=== PATIENT | male | born 1955 | race Two or more races ===

== ENCOUNTER → 2024-03-31 | Outpatient (CLI) | payer MEDICARE, SELFPAY ==
--- NOTE | 2024-03-31 11:27 | XR_ITS ---
Examination: PA lateral chest 2 views TECHNIQUE: Upright PA lateral chest 2 views Exam date and time: March 31, 1999 2534 hours Comparison June 27, 2022 INDICATIONS: Diagnosis chronic heart failure, systolic heart failure with shortness of breath this week FINDINGS: Mild prominence left ventricle Mild vascular congestion. No angel pulmonary edema Transvenous dual-chamber bipolar cardiac lead satisfactory position IMPRESSION: Mild prominence left ventricle No pneumonia or pulmonary edema
== END | disposition home or self-care (01) ==
PROVIDERS: PCP Family Medicine; Referring Provider Registered Nurse; Visit Provider Registered Nurse
DX: I51.7 Cardiomegaly (principal)
CPT/HCPCS: 71046

== ENCOUNTER → 2024-04-30 | Outpatient (CLI) | payer MEDICARE, SELFPAY ==
[2024-04-30 15:59] LABS: Amphetamine/Methamp Scrn,U Negative (Negative); Barbiturate Screen,Urine Negative (Negative); Benzodiazepines Screen,Urine Negative (Negative); Benzoylecgonine Screen, Ur Negative (Negative); Fentanyl Screen,Urine Negative (Negative); Opiate Screen,Urine Negative (Negative); THC Screen,Urine Negative (Negative)
== END | disposition home or self-care (01) ==
LOC: SLDO 14:16
PROVIDERS: PCP Registered Nurse; Referring Provider Registered Nurse; Visit Provider Registered Nurse
DX: L97.923 Non-pressure chronic ulcer of unspecified part of left lower leg with necrosis of muscle (principal); Z79.891 Long term (current) use of opiate analgesic
CPT/HCPCS: 80307

== ENCOUNTER 2024-06-06 19:43 | Inpatient (IN) | payer MEDICARE, SELFPAY ==
[2024-06-06] VITALS (8 sets, daily range): BP systolic 120–144; BP diastolic 59–83; PULSE 60–78; RESP 22–32; TEMP 39.4–41.1; O2SAT 95–99; BMI 33.4
--- NOTE | 2024-06-06 20:07 | XR_ITS ---
Examination: CT brain head without contrast. 2-D sagittal coronal reconstructions Date and time of exam:June 06, 20242014 hrs. , Consider Indications: Onset altered mental status today CTDI: vol (mGy):54.3 DLP: (mGycm):1103 Technique: Multiple CT axial sections of the brain have been obtained, 5 mm slice thickness. Contrast has not been administered. 2-D sagittal, coronal reconstructions have been obtained Low dose protocols were performed. One or more of the following dose reduction techniques were used; automated exposure control, adjustment of the mA and/or KV according to patient size, use of iterative reconstruction technique. Findings: No significant ventricular enlargement. Small bilateral basal ganglia infarcts Intra-axial or extra-axial hemorrhage density is not seen. No mass effect or midline shift Basal cisterns are not remarkable. Fourth ventricle is midline. Cranial vault intact. Impression: Negative for acute hemorrhage, mass effect or midline shift Clinical correlation advised and follow-up accordingly
--- NOTE | 2024-06-06 20:07 | XR_ITS ---
Examination: AP chest single view Technique one AP portable upright chest single view Exam date and time: June 06, 2024 1931 hrs. Comparison March 31, 2024 Indications: Sepsis today Findings: Mild heart failure Mild enlargement cardiac contour Prominent vascular congestion with mild perihilar edema Cardiac leads satisfactory position No lobar pneumonia Impression: Mild heart failure No lobar pneumonia
[2024-06-06 20:31] LABS: Lactate (Lactic Acid) 3.3 mMol/L (0.4-2.0)
[2024-06-06 20:33] LABS: Basophils # (Auto) 0.1 Thou/mm3 (0.0-0.2); Basophils % (Auto) 0 % (0-2.5); Eosinophils % (Auto) 0 % (0-10); Hematocrit 44.2 % (41.0-53.0); Hemoglobin 14.8 g/dL (13.5-16.0); Immature Granulocytes % (Auto) 1 % (0-0); Immature Granulocytes Auto 0.12 Thou/mm3 (0.00-0.00); Lymphocytes # (Auto) 0.8 Thou/mm3 (1.0-4.8); Lymphocytes % (Auto) 4 % (10-50); Mean Corpuscular HGB Conc 33.5 g/dl (31.0-37.0); Mean Corpuscular Hemoglobin 29.5 pg (25.0-35.0); Mean Corpuscular Volume 88 fL (80-100); Monocytes # (Auto) 1.5 Thou/mm3 (0.0-0.8); Monocytes % (Auto) 7 % (0-12); Neutrophils # (Auto) 17.6 Thou/mm3 (1.8-7.7); Neutrophils % (Auto) 88 % (37-80); Nucleated Red Blood Cell % 0 /100 WBC (0); Platelet Count 158 Thou/mm3 (140-440); RDW Standard Deviation 43.6 fL (35.1-43.9); Red Blood Count 5.02 Miln/mm3 (4.50-5.90)
[2024-06-06] MEDS: ACETAMINOPHEN SUPP 650 MG SUPP PR ×2 (20:41→22:40)
[2024-06-06 20:48] LABS: INR 1.2 (0.9-1.3); Partial Thromboplastin Time 28.1 Seconds (22.0-36.0); Prothrombin Time 13.1 Seconds (9.0-12.2)
[2024-06-06] MEDS: SODIUM CHLORIDE 0.9% 1000 ML 1,000 ML 999 ML IV ×3 (20:50→23:16)
[2024-06-06 21:03] LABS: Alanine Aminotransferase 14 U/L (10-49); Albumin, Serum 3.8 gm/dL (3.4-4.8); Albumin/Globulin Ratio 1.2 (1.2-2.2); Alkaline Phosphatase 97 U/L (46-116); Anion Gap 11 (7-16); Aspartate Amino Transferase 26 U/L (0-34); BUN/Creatinine Ratio 12 Ratio (12-20); Bilirubin,Total 0.8 mg/dL (0.3-1.2); Blood Urea Nitrogen 21 mg/dL (9-23); Calcium 9.6 mg/dL (8.3-10.6); Calcium (Corrected) 9.8 mg/dL (8.5-10.1); Carbon Dioxide 21.5 mMol/L (20.0-31.0); Chloride 105 mMol/L (98-107); Creatinine (Component) 1.7 mg/dL (0.6-1.3); Estimated Creatinine Clearance 45.6 mL/min (>60); Globulin 3.3 gm/dL (2.3-3.5); Glucose 111 mg/dL (74-106); Osmolality,Calculated 277 (275-295); Potassium 4.7 mMol/L (3.4-5.1); Procalcitonin 0.88 ng/ml (0.0-0.49); Sodium 137 mMol/L (136-145); Total Protein 7.1 gm/dL (5.7-8.2); eGFR 43 See Note
[2024-06-06 21:13] LABS: Collection Type, Urine Voided; Squamous Epithelial Cell,Urine 0 /hpf (0-5)
--- NOTE | 2024-06-06 21:17 | EDNOTE_ITS ---
ED SOB =RME/HPI General Chief Complaint: Shortness of Breath/Dyspnea Stated Complaint: SHORTNESS OF BREATH Time Seen by Provider: 06/06/24 19:55 Arrival date/time: 06/06/24 19:43 This is a 69-year-old male that comes in with complaints of fever shortness of breath for the past 3 days. Per patient's son patient has had flulike symptoms for the past 3 days and today was feeling weak and had 1 fall at home. Per son patient did not fall and hit head per son, One of the times patient fell on buttocks. Patient currently being treated for chronic ulcers to lower extremities. hx of valvular disease, pacemaker placement (replaced in 2018), HTN, HFpEF s/p AICD, and CVA. Related Data Home Medications ?Medication ?Instructions ?Recorded ?Confirmed nitroglycerin 0.4 mg sublingual 0.4 mg SL PRN PRN CHES T TIGHTNESS 12/20/16 06/07/24 tablet (Nitrostat) #0 tabs amlodipine 5 mg tablet 5 mg PO QDAY 06/04/22 aspirin 81 mg chewable tablet 81 mg PO QDAY 06/04/22 0 06/07/24 escitalopram oxalate 20 mg tablet 20 mg PO QDAY 06/07/24 tamsulosin 0.4 mg capsule (Flomax) 0.4 mg PO QDAY 05/2206/07/24 spironolactone 25 mg tablet 25 mg PO BID 07/03/2305/22 hydrocodone 10 mg-acetaminophen 1 tab PO BID PRN pain 06/07/24 06/07/24 325 mg tablet Previous Rx's ?Medication ?Instructions ?Recorded doxycycline monohydrate 100 mg 100 mg PO BID 10 days # 20 caps 06/11/24 capsule metoprolol succinate 50 mg 50 mg PO QDAY 1 month #30 t abs 06/11/24 tablet,extended release 24 hr Allergies Allergy/AdvReac Type Severity Reaction Status Date / Time latex Allergy Rash Verified 11/04/23 21:49 Review of Systems Review of Systems Systems Reviewed: All systems reviewed, normal except as documented Past Medical History Past Medical History Comments PMH COMMENT: Past medical history: As above Surgical history: Pacemaker placement 2018 Meds: [place] 10, clonidine 0.2, Metoprol tartrate 50, Aldactone 25, nitro as needed, Lexapro 20, amlodipine 5, baby aspirin Allergies: Latex gives him rash Family history: Limited family history, unsure if there is family history of stroke, heart disease or diabetes Social history: Denies any oral or IV drug use, denies ever being a heavy drinker, no smoking history ED Exam General General appearance: Present other (confused, moderate distress, tachypniec feb rile) Head Head exam: Present atraumatic Eye Eye exam: Present normal appearance, PERRL and EOMI ENT ENT exam: Present mucous membranes moist Neck Neck exam: Present normal inspection, full ROM and trachea midline Chest Chest inspection: Present normal inspection and symmetric chest wall rise Respiratory Respiratory exam: Present other (scatterred rhonchi, slightly diminished posterior bases ) Cardiovascular Cardiovascular exam: Present regular rate, normal rhythm and normal heart sounds Abdominal Exam Abdominal exam: Present soft and normal bowel sounds Extremities Exam Extremities exam: Present normal inspection and full ROM Back Exam Back exam: Present normal inspection and full ROM Neurological Exam Neurological exam: Present alert, oriented X3 and CN II-XII intact Psychiatric Psychiatric exam: Present normal affect and normal mood Skin Skin exam: Present warm, dry, intact and normal color Course Quality Measures none Orders Category Date Time Status Bedside Blood Glucose NOW Care 06/06/24 20:07 Completed Bedside COVID-19 Antigen Test NOW Care 06/06/24 20:07 Completed Bedside Influenza A&B Antigen Test NOW Care 06/06/24 20:07 Completed COVID-19 Screening Questionnaire NOW Care 06/06/24 23:[address] Screening NOW Care 06/07/24 01:59 Completed Grocery Cashier Q4H START 00 Care 06/06/24 20:07 Completed Cold Pack Treatment NOW Care 06/07/24 02:05 Completed Cooling Lucien Application NOW Care 06/07/24 02:00 Completed Cooling Measures NEEDED Care 06/07/24 02:00 Completed Decision to Admit X1 Care 06/06/24 23:00 Completed EKG (ED ONLY) *Do not use* NOW Care 06/06/24 20:01 Completed Insert IV NOW Care 06/06/24 20:07 Completed Strict Intake and Output Routine Care 06/06/24 20:[address] chest abdomen pelvis wo Stat Exams 06/07/24 02:[address] head/brain wo con Stat Exams 06/06/24 20:[address] lower extremity BI wo Stat Exams 06/06/24 22:59 Completed EKG (ED Only) Stat Exams 06/06/24 20:01 Ordered XR chest 1V SEPSIS PROTOCOL Stat Exams 06/06/24 20:07 Completed ABG [Arterial Blood Gas] Stat Lab 06/06/24 21:29 Completed Blood Culture (Lab) Stat Lab 06/06/24 20:20 Completed CBC Stat Lab 06/06/24 20:15 Completed Comprehensive Metabolic Panel Stat Lab 06/06/24 20:15 Completed Creatine Kinase Stat Lab 06/06/24 23:35 Completed Drug Screen,Urine Stat Lab 06/07/24 10:30 Completed Lactate (Lactic Acid) Stat Lab 06/06/24 20:15 Completed Lactate (Lactic Acid) Stat Lab 06/06/24 23:03 Completed Lactic Acid, 3 HR Stat Lab 06/07/24 05:21 Completed Partial Thromboplastin Time Stat Lab 06/06/24 20:15 Completed Procalcitonin Stat Lab 06/06/24 20:15 Completed Prothrombin Time with INR Stat Lab 06/06/24 20:15 Completed Quantiferon-TB* Stat Lab 06/07/24 07:20 Completed TSH [Thyroid Stimulating Hormone] Stat Lab 06/07/24 02:00 Completed UA [Urinalysis] Stat Lab 06/07/24 10:30 Completed Urinalysis Stat Lab 06/06/24 20:59 Completed Urine Culture Stat Lab 06/06/24 20:59 Completed West Nile Virus(IgG,IgM) Serum Stat Lab 06/07/24 09:46 Completed Acetaminophen Ivpb [Ofirmev Inj] Med 06/07/24 02:01 Discontinued 1,000 mg in 100 ml IV X1 Acetaminophen Supp [Tylenol Supp] Med 06/06/24 20:06 Discontinued 650 mg MO X1 ONE Acetaminophen Supp [Tylenol Supp] Med 06/06/24 21:38 Discontinued 650 mg MO X1 ONE Acyclovir Inj [Zovirax Inj] 684 mg Med 06/07/24 21:00 Discontinued Sodium Chloride 0.9% [Ns] 100 ml IV Q12HR Acyclovir Inj [Zovirax Inj] 684 mg Med 06/07/24 03:00 Discontinued Sodium Chloride 0.9% [Ns] 100 ml IV X1 Ampicillin Inj 2,000 mg Med 06/07/24 03:00 Discontinued Sodium Chloride 0.9% (Pop) [NS 0.9% mini bag] 100 ml IV Q4HR Ampicillin Inj 2,000 mg Med 06/07/24 12:00 Discontinued Sodium Chloride 0.9% (Pop) [NS 0.9% mini bag] 100 ml IV Q6HR Piper/Tazo 3.375 gm Premix [Zosyn] Med 06/06/24 21:17 Discontinued 3.375 gm in 50 ml IV X1 Sodium Chloride 0.9% 1000 ml [Ns] 1,000 ml Med 06/06/24 20:13 Discontinued IV 999 mls/hr Sodium Chloride 0.9% 1000 ml [Ns] 1,000 ml Med 06/06/24 20:13 Discontinued IV 999 mls/hr Sodium Chloride 0.9% 1000 ml [Ns] 1,000 ml Med 06/06/24 23:05 Discontinued IV 999 mls/hr Sodium Chloride 0.9% 1000 ml [Ns] 1,000 ml Med 06/07/24 02:01 Discontinued IV 999 mls/hr Sodium Chloride 0.9% 1000 ml [Ns] 1,000 ml Med 06/07/24 02:06 Discontinued IV 999 mls/hr Vancomycin Inj 1,000 mg Med 06/06/24 22:56 Discontinued Sodium Chloride 0.9% 250 ml [Ns] 250 ml IV X1 cefTRIAXone [Rocephin] 2 gm Med 06/07/24 21:00 Discontinued SODIUM CHLORIDE 0.9% (Popper) [Ns 0.9% (P)] 50 ml IV Q12HR cefTRIAXone [Rocephin] 2 gm Med 06/07/24 03:00 Discontinued SODIUM CHLORIDE 0.9% (Popper) [Ns 0.9% (P)] 50 ml IV X1 EKG (RT) Stat RT 06/06/24 20:07 Ordered Oxygen Delivery NOW RT 06/06/24 20:07 Completed Vital Signs Vital signs: Vital Signs Temperature 103.0 F H 06/06/24 20:01 Pulse Rate 60 06/06/24 20:01 Respiratory Rate 28 H 06/06/24 20:01 Blood Pressure 144/68 H 06/06/24 20:01 Pulse Oximetry (%) 98 06/06/24 20:01 Oxygen Delivery Method Nasal Cannula 06/06/24 20:01 Oxygen Flow Rate 2 06/06/24 20:01 Procedures -ED EKG Interpretation #1: Date of EK06/06/24 Time of EK:00 Rate: 60 Interpretation: Interpreted by me (Ventricular pacemaker.) Additional EKG comment: Ventricular paced rhythm. Shortness of Breath / Dyspnea MDM Narrative MDM Narrative:: Findings: No significant ventricular enlargement. Small bilateral basal ganglia infarcts Intra-axial or extra-axial hemorrhage density is not seen. No mass effect or midline shift Basal cisterns are not remarkable. Fourth ventricle is midline. Cranial vault intact. Impression: Negative for acute hemorrhage, mass effect or midline shift Clinical correlation advised and follow-up accordingly Xray: Findings: Mild heart failure Mild enlargement cardiac contour Prominent vascular congestion with mild perihilar edema Cardiac leads satisfactory position No lobar pneumonia Impression: Mild heart failure No lobar pneumonia Patient arrives to the emergency room with a fever of 103. Patient upon arrival given 650 of Tylenol. Sepsis alert called. 3 L of fluid ordered. Patient's white count is 20.0 platelet count is 158 neutrophil count elevated as well 80, PT is 13.1, ABG pH shows 7.52 with a pCO2 of 20 pO2 of 63 and a bicarb of 16, BMP shows a BUN of 21 and a creatinine of 1.7, lactic acid 3.3 procalcitonin 0.88, urine was positive for blood and RBCs. Payne catheter placed here. CT of head bilateral ganglia infarcts. Otherwise negative for acute hemorrhage mass effect or midline shift. Chest x-ray shows mild heart failure. Patient's fever went up to 105.9. Patient had a headache seizure lasting approximately 30 seconds. Patient was given an additional dose of Tylenol 650 per rectal. Cooling measures had already been started with ice packs. Because of fever it is likely it was a febrile seizure however I did let admitting hospitalist no about seizure. Patient did not have to get Ativan or any other medications to stop seizure patient stopped seizure on his own. Patient was given a dose of Zosyn IV. patient does have a history of MRSA and covered with vancomycin IV 1 g. Patient will be admitted to the hospital. Hospitalist team came to come see patient and wanted a CT of lower extremities. Source of sepsis likely lower extremities. Patient has wound to bilateral heels the left looks a little worse than the right. Patient data External records reviewed:: [facility] previous records Clinical information provided by:: patient and family Social determinants that could affect healthcare access:: none Patient has the following chronic illnesses:: see note How is presenting disease/condition affected by chronic disease/condition?: exacerbated by Evaluation data The following diagnostics were reviewed and interpreted by me:: lab results, radiology exam(s) and EKG tracing(s) Lab and/or radiology exams considered but not ordered:: none Interpretation Summary: see note Medications / Prescriptions Medications or Prescriptions considered but not ordered:: none Medication administrations:: Medication Administration History Discontinued Medications Acetaminophen (Acetaminophen Supp 650 Mg Supp) 650 mg MO X1 ONE Stop: 06/06/24 20:07 Last Admin: 06/06/24 20:41 Dose: 650 mg Documented By: DUSTIN Acetaminophen (Acetaminophen Supp 650 Mg Supp) 650 mg MO X1 ONE Stop: 06/06/24 21:39 Last Admin: 06/06/24 22:40 Dose: 650 mg Documented By: DUSTIN Acetaminophen (Acetaminophen 325 Mg Tablet) 650 mg PO Q6HR PRN PRN Reason: Fever >100.4 or Pain 1-3 Stop: 07/07/24 15:30 Last Admin: 06/08/24 07:50 Dose: 650 mg Documented By: Admin: 06/07/24 15:54 Dose: 650 mg Documented By: BD Hydrocodone Bitart/Acetaminophen (Hydrocodone/Apap 10/325 Tab) 1 tab PO Q4H PRN PRN Reason: PAIN SCALE 4-6 (Moderate Stop: 06/12/24 04:19 Albuterol/Ipratropium (Albuterol/Ipratropium (Duoneb) Rt [place] 3 Ml Nebu) 3 ml INH Q6HRRT ISHA Stop: 07/07/24 13:34 Last Admin: 06/10/24 11:46 Dose: Not Given Documented By: ER Non-Admin Reason: Discontinued Admin: 06/10/24 11:45 Dose: Not Given Documented By: ER Non-Admin Reason: Discontinued Admin: 06/10/24 00:45 Dose: 3 ml Documented By: Admin: 06/09/24 18:30 Dose: 3 ml Documented By: Admin: 06/09/24 12:30 Dose: Not Given Documented By: BJ Non-Admin Reason: Patient Refused Admin: 06/09/24 07:06 Dose: 3 ml Documented By: Admin: 06/09/24 00:30 Dose: 3 ml Documented By: Admin: 06/08/24 18:40 Dose: 3 ml Documented By: Admin: 06/08/24 12:56 Dose: 3 ml Documented By: Admin: 06/08/24 06:44 Dose: 3 ml Documented By: Admin: 06/07/24 18:13 Dose: 3 ml Documented By: Admin: 06/07/24 13:54 Dose: 3 ml Documented By: MR Albuterol/Ipratropium (Albuterol/Ipratropium (Duoneb) Rt [place]zen[place] 3 Ml Nebu) 3 ml INH Q6HRRT PRN PRN Reason: wheeze Stop: 07/07/24 13:34 Amlodipine Besylate (Amlodipine Besylate 5 Mg Tablet) 5 mg PO QDAY [facility] Stop: 07/09/24 08:59 Last Admin: 06/11/24 09:26 Dose: 5 mg Documented By: Admin: 06/10/24 09:43 Dose: 5 mg Documented By: Admin: 06/09/24 08:16 Dose: 5 mg Documented By: OTILIA Aspirin (Aspirin 81 Mg Chew) 81 mg PO QDAY ISHA Stop: 07/09/24 08:59 Last Admin: 06/11/24 09:24 Dose: 81 mg Documented By: Admin: 06/10/24 09:43 Dose: 81 mg Documented By: Admin: 06/09/24 08:16 Dose: 81 mg Documented By: OTILIA Benzocaine (Benzocaine 20% (Hurricaine) [place] 1 Dose) Confirm Administered Dose 1 dose TOP .STK-MED ONE Stop: 06/10/24 09:22 Last Admin: 06/10/24 13:21 Dose: Not Given Documented By: MIRTA Non-Admin Reason: Duplicate Medication on eMAR Benzocaine (Benzocaine 20% (Hurricaine) [place] 1 Dose) 0 dose TOP X1 ONE Stop: 06/10/24 12:51 Last Admin: 06/10/24 12:50 Dose: 1 dose Documented By: MIRTA Escitalopram Oxalate (Escitalopram Oxalate 10 Mg Tablet) 20 mg PO QDAY ISHA Stop: 07/09/24 08:59 Last Admin: 06/11/24 09:24 Dose: 20 mg Documented By: Admin: 06/10/24 09:43 Dose: 20 mg Documented By: Admin: 06/09/24 08:16 Dose: 20 mg Documented By: OTILIA Fentanyl Citrate (Fentanyl Cit Inj 50 Mcg/Ml Amp 2ml) Confirm Administered Dose 100 mcg .ROUTE .STK-MED ONE Stop: 06/10/24 09:23 Last Admin: 06/10/24 13:21 Dose: Not Given Documented By: MIRTA Non-Admin Reason: Duplicate Medication on eMAR Fentanyl Citrate (Fentanyl Cit Inj 50 Mcg/Ml Amp 2ml) Confirm Administered Dose 100 mcg .ROUTE .STK-MED ONE Stop: 06/10/24 09:24 Last Admin: 06/10/24 13:20 Dose: Not Given Documented By: MIRTA Non-Admin Reason: Duplicate Medication on eMAR Fentanyl Citrate (Fentanyl Cit Inj 50 Mcg/Ml Amp 2ml) 75 mcg IV X1 ONE Stop: 06/10/24 12:52 Last Admin: 06/10/24 12:51 Dose: 75 mcg Documented By: MIRTA Flumazenil (Flumazenil Inj 0.1 Mg/Ml Vial 10 Ml) Confirm Administered Dose 1 mg .ROUTE .STK-MED ONE Stop: 06/10/24 09:24 Last Admin: 06/10/24 13:20 Dose: Not Given Documented By: MIRTA Non-Admin Reason: not needed Heparin Sodium (Porcine) (Heparin Sod Inj 5000 Unit/Ml Vial) 5,000 unit SC Q12HR [facility] Stop: 06/21/24 04:29 Last Admin: 06/11/24 09:25 Dose: 5,000 unit Documented By: ADI Co-signed By: MIKE Admin: 06/10/24 20:51 Dose: 5,000 unit Documented By: FRANKO Co-signed By: NISHANT Admin: 06/10/24 09:49 Dose: 5,000 unit Documented By: ER Co-signed By: DEMI Admin: 06/09/24 20:46 Dose: 5,000 unit Documented By: FRANKO Co-signed By: NIKO Admin: 06/09/24 08:17 Dose: 5,000 unit Documented By: OTILIA Co-signed By: BUDDY Admin: 06/08/24 20:31 Dose: 5,000 unit Documented By: STEFANI Co-signed By: NISHANT Admin: 06/08/24 08:42 Dose: 5,000 unit Documented By: OTILIA Co-signed By: JOSE Admin: 06/07/24 23:28 Dose: 5,000 unit Documented By: STEFANI Co-signed By: CORINNE Admin: 06/07/24 05:30 Dose: 5,000 unit Documented By: CCT Co-signed By: THERESA Sodium Chloride (Ns) 1,000 mls @ 999 mls/hr IV .Q1H1M ONE Stop: 06/06/24 21:13 Last Infusion: 06/06/24 22:50 Dose: Infused Documented By: Admin: 06/06/24 20:50 Dose: 999 mls/hr Documented By: CB Sodium Chloride (Ns) 1,000 mls @ 999 mls/hr IV .Q1H1M ONE Stop: 06/06/24 21:13 Last Infusion: 06/07/24 01:35 Dose: Infused Documented By: Admin: 06/06/24 22:48 Dose: 999 mls/hr Documented By: CB Piperacillin/Tazobactam/Dextrose (Zosyn) 3.375 gm in 50 mls @ 100 mls/hr IV X1 ONE Stop: 06/06/24 21:46 Last Infusion: 06/06/24 23:06 Dose: Infused Documented By: Admin: 06/06/24 22:20 Dose: 100 mls/hr Documented By: CB Vancomycin HCl 1,000 mg/ (Sodium Chloride) 250 mls @ 150 mls/hr IV X1 ONE Stop: 06/07/24 00:35 Last Infusion: 06/07/24 01:49 Dose: Infused Documented By: Admin: 06/06/24 23:05 Dose: 150 mls/hr Documented By: THERESA Sodium Chloride (Ns) 1,000 mls @ 999 mls/hr IV .Q1H1M ONE Stop: 06/07/24 00:05 Last Infusion: 06/07/24 02:34 Dose: Infused Documented By: Admin: 06/06/24 23:16 Dose: 999 mls/hr Documented By: EE Sodium Chloride (Ns) 1,000 mls @ 999 mls/hr IV .Q1H1M ONE Stop: 06/07/24 03:01 Last Infusion: 06/07/24 04:00 Dose: Infused Documented By: Admin: 06/07/24 02:54 Dose: 999 mls/hr Documented By: CCT Acetaminophen (Ofirmev Inj) 1,000 mg in 100 mls @ 250 mls/hr IV X1 ONE Stop: 06/07/24 02:24 Last Infusion: 06/07/24 03:15 Dose: Infused Documented By: Admin: 06/07/24 02:53 Dose: 250 mls/hr Documented By: CCT Sodium Chloride (Ns) 1,000 mls @ 999 mls/hr IV .Q1H1M ONE Stop: 06/07/24 03:06 Last Infusion: 06/07/24 05:35 Dose: Infused Documented By: Admin: 06/07/24 04:32 Dose: 999 mls/hr Documented By: CCT Ampicillin Sodium 2,000 mg/ (Sodium Chloride) 100 mls @ 100 mls/hr IV Q6HR ISHA; Protocol Stop: 06/14/24 11:59 Last Infusion: 06/07/24 15:31 Dose: Infused Documented By: Admin: 06/07/24 12:38 Dose: 100 mls/hr Documented By: BD Ceftriaxone Sodium 2 gm/ (Sodium Chloride) 50 mls @ 100 mls/hr IV Q12HR ISHA Stop: 06/14/24 20:59 Last Admin: 06/09/24 08:16 Dose: 100 mls/hr Documented By: Infusion: 06/08/24 21:01 Dose: Infused Documented By: Admin: 06/08/24 20:31 Dose: 100 mls/hr Documented By: Infusion: 06/08/24 19:33 Dose: Infused Documented By: Admin: 06/08/24 08:42 Dose: 100 mls/hr Documented By: Infusion: 06/07/24 23:58 Dose: Infused Documented By: Admin: 06/07/24 23:28 Dose: 100 mls/hr Documented By: STEFANI Acyclovir Sodium 684 mg/ (Sodium Chloride) 113.68 mls @ 94.755 mls/hr IV Q12HR ISHA; Protocol Stop: 06/14/24 20:59 Ceftriaxone Sodium 2 gm/ (Sodium Chloride) 50 mls @ 100 mls/hr IV X1 ONE Stop: 06/07/24 03:29 Last Infusion: 06/07/24 05:05 Dose: Infused Documented By: Admin: 06/07/24 04:34 Dose: 100 mls/hr Documented By: CCT Ampicillin Sodium 2,000 mg/ (Sodium Chloride) 100 mls @ 100 mls/hr IV Q4HR ISHA Stop: 06/07/24 06:59 Last Infusion: 06/07/24 08:07 Dose: Infused Documented By: Admin: 06/07/24 07:04 Dose: Not Given Documented By: CCT Non-Admin Reason: Wrong Time Admin: 06/07/24 07:03 Dose: 100 mls/hr Documented By: CCT Acyclovir Sodium 684 mg/ (Sodium Chloride) 113.68 mls @ 94.755 mls/hr IV X1 ONE Stop: 06/07/24 04:11 Last Infusion: 06/07/24 06:44 Dose: Infused Documented By: Admin: 06/07/24 05:29 Dose: 94.755 mls/hr Documented By: CCT Magnesium Sulfate (Magnesium Sulfate Ivpb) 4 gm in 50 mls @ 12.5 mls/hr IV X1 ONE Stop: 06/07/24 10:59 Last Infusion: 06/07/24 11:59 Dose: Infused Documented By: Admin: 06/07/24 08:36 Dose: 12.5 mls/hr Documented By: RD Magnesium Sulfate (Magnesium Sulfate Ivpb) 4 gm in 50 mls @ 12.5 mls/hr IV X1 ONE Stop: 06/07/24 14:59 Last Infusion: 06/07/24 15:58 Dose: Infused Documented By: Admin: 06/07/24 11:54 Dose: 12.5 mls/hr Documented By: BD Vancomycin/Sodium Chloride (Vancomycin/Ns 1 Gm Ivpb) 200 mls @ 120 mls/hr IV X1 ONE Stop: 06/07/24 11:09 Last Infusion: 06/07/24 12:01 Dose: Infused Documented By: Admin: 06/07/24 10:23 Dose: 120 mls/hr Documented By: BD Lactated Ringer's (Lactated Ringers) 1,000 mls @ 999 mls/hr IV .Q1H1M ONE Stop: 06/07/24 13:06 Last Infusion: 06/07/24 15:11 Dose: Infused Documented By: Admin: 06/07/24 12:30 Dose: 999 mls/hr Documented By: BD Acetaminophen (Ofirmev Inj) 1,000 mg in 100 mls @ 250 mls/hr IV X1 ONE Stop: 06/07/24 16:57 Last Infusion: 06/07/24 17:14 Dose: Infused Documented By: Admin: 06/07/24 16:45 Dose: 250 mls/hr Documented By: BD Vancomycin HCl/Dextrose (Vancomycin/D5w 1,250 Mg Ivpb) 250 mls @ 120 mls/hr IV Q24H [facility] Stop: 06/15/24 09:59 Vancomycin HCl (Vancomycin/Water 1250 Mg Ivpb) 250 mls @ 120 mls/hr IV Q24H ISHA Stop: 06/15/24 09:59 Last Infusion: 06/08/24 20:32 Dose: Infused Documented By: Admin: 06/08/24 10:30 Dose: 120 mls/hr Documented By: WG Sodium Phosphate 15 mmol/ (Sodium Chloride) 255 mls @ 62.5 mls/hr IV X1 ONE Stop: 06/09/24 11:29 Last Admin: 06/09/24 09:35 Dose: 62.5 mls/hr Documented By: OTILIA Ceftriaxone Sodium/Dextrose (Rocephin/D5w 2gm) 2 gm in 50 mls @ 100 mls/hr IV QDAY [facility] Stop: 06/17/24 08:59 Last Admin: 06/11/24 09:25 Dose: 100 mls/hr Documented By: Infusion: 06/10/24 10:14 Dose: Infused Documented By: Admin: 06/10/24 09:44 Dose: 100 mls/hr Documented By: ER Lorazepam (Lorazepam 2 Mg/Ml Vial) 2 mg IVP Q30M PRN PRN Reason: Beakthrough seizures Stop: 06/12/24 13:28 Lorazepam (Lorazepam 2 Mg/Ml Vial) 1 mg IVP X1 ONE Stop: 06/07/24 17:26 Last Admin: 06/07/24 17:34 Dose: 1 mg Documented By: BD Magnesium Hydroxide (Milk Of Magnesia Susp 30 Ml Udc) 30 ml PO X1 ONE; Protocol Stop: 06/10/24 08:05 Last Admin: 06/10/24 09:42 Dose: 30 ml Documented By: ER Metoprolol Succinate (Metoprolol Succinate Xl 25 Mg Tabcr) 25 mg PO QDAY [facility] Stop: 07/11/24 09:59 Metoprolol Tartrate (Metoprolol Tartrate 25 Mg Tablet) 25 mg PO X1 ONE Stop: 06/11/24 09:33 Last Admin: 06/11/24 11:27 Dose: 25 mg Documented By: ER Midazolam HCl (Midazolam Inj 1 Mg/Ml Vial 2 Ml) Confirm Administered Dose 6 mg .ROUTE .STK-MED ONE Stop: 06/10/24 09:22 Last Admin: 06/10/24 13:21 Dose: Not Given Documented By: MIRTA Non-Admin Reason: Duplicate Medication on eMAR Midazolam HCl (Midazolam Inj 1 Mg/Ml Vial 2 Ml) 3 mg IV X1 ONE Stop: 06/10/24 12:52 Last Admin: 06/10/24 12:51 Dose: 3 mg Documented By: LS Naloxone HCl (Naloxone Inj 0.4 Mg/Ml Vial) Confirm Administered Dose 0.4 mg .ROUTE .STK-MED ONE Stop: 06/10/24 09:23 Last Admin: 06/10/24 13:21 Dose: Not Given Documented By: MIRTA Non-Admin Reason: not needed Ondansetron HCl (Ondansetron Inj 2 Mg/Ml Inj 2 Ml) 4 mg IV Q6H PRN; Protocol PRN Reason: NAUSEA OR VOMITING Stop: 07/07/24 04:25 Last Admin: 06/08/24 07:50 Dose: 4 mg Documented By: OTILIA Pharmacy Consult (Vancomycin Pharmacy To Dose 1 Each Each) 1 each IV QDAY PRN PRN Reason: PROTOCOL Stop: 07/07/24 08:59 Polyethylene Glycol (Polyethylene Glycol 17 Gm Packet) 17 gm PO X1 ONE Stop: 06/09/24 07:29 Last Admin: 06/09/24 08:16 Dose: 17 gm Documented By: OTILIA Sennosides (Senna Tablet) 1 tab PO QDAY ISHA; Protocol Stop: 07/08/24 08:59 Last Admin: 06/11/24 09:25 Dose: 1 tab Documented By: Admin: 06/10/24 09:44 Dose: 1 tab Documented By: Admin: 06/09/24 08:17 Dose: 1 tab Documented By: Admin: 06/08/24 08:41 Dose: 1 tab Documented By: OTILIA Sodium Bicarbonate (Sodium Bicarb Inj 8.4% 1 Meq/Ml 50 Ml Vial) 50 meq IV X1 ONE Stop: 06/07/24 12:08 Last Admin: 06/07/24 12:23 Dose: 50 meq Documented By: JUVENTINO Spironolactone (Spironolactone 25 Mg Tablet) 25 mg PO BID ISHA Stop: 07/09/24 20:59 Last Admin: 06/11/24 09:25 Dose: 25 mg Documented By: Admin: 06/10/24 20:51 Dose: 25 mg Documented By: Admin: 06/10/24 09:43 Dose: 25 mg Documented By: Admin: 06/09/24 20:46 Dose: 25 mg Documented By: FRANKO Tamsulosin HCl (Tamsulosin Hcl 0.4 Mg Capsule) 0.4 mg PO QDAY ISHA Stop: 07/08/24 08:59 Last Admin: 06/11/24 09:26 Dose: 0.4 mg Documented By: Admin: 06/10/24 09:44 Dose: 0.4 mg Documented By: Admin: 06/09/24 08:17 Dose: 0.4 mg Documented By: Admin: 06/08/24 08:41 Dose: 0.4 mg Documented By: OTILIA see mar Consultations Consultation(s) initiated? (list below): No Diagnosis Shortness of Breath Differential Diagnosis: acute exacerbation of chronic obstructive airways disease, congestive heart failure, community acquired pneumonia and other (uti, cellulitis ) Most likely diagnosis given after review of the tests above:: cellilitis, severe sepsis Admission Indicated Admission indicated?: not indicated Admission Request Was there a request for admission?: Yes Admission Attestation Admission request attestation: Discussed case with Hospitalist service regarding admission. Discussed patients ED course, exam findings, labs, and radiology results. The Hospitalist agrees to accept the patient for admission. Disposition Plan Disposition Plan: Admit Discharge Plan Plan Patient Disposition: Admit Acute Care w/in Hospital Patient condition on transfer: Stable Problem List Clinical Impression: Fever, JEANETTE (acute kidney injury), Cellulitis, Severe sepsis, Acute encephalopathy, Seizure PA/[employer]UMNI RELATIONS COORDINATOR Supervising Physician GRACE/[employer]UMNI RELATIONS COORDINATOR Supervising Physician: carrie
[2024-06-06 21:21] LABS: Bilirubin,Urine Negative (Negative); Blood,Urine 2+ (Negative); Clarity,Urine Clear (Clear/Hazy); Color,Urine Yellow (Lt Yel-Yel); Glucose, Urine Negative (Negative); Ketones,Urine Negative (Negative); Leukocyte Esterase,Urine Negative (Negative); Nitrite,Urine Negative (Negative); Protein,Urine 3+ (Neg - Trace); RBC,Urine 7 /hpf (0-3); Specific Gravity,Urine 1.027 (1.001-1.035); WBC,Urine 2 /hpf (0-5)
[2024-06-06 21:34] LABS: Base Excess -4 (-3-3); HCO3 16 mEq/L (20-26); Inspired Oxygen, FIO2 21 %; O2 Saturation 95 % (91-98); PCO2 20 mmHg (32.0-48.0); PO2 63 mmHg (83-108); pH, Arterial 7.52 (7.35-7.45)
[2024-06-06 21:38] LABS: Allen Test Performed/OK; Puncture Site Left Radial
[2024-06-06] MEDS: PIPER/TAZO 3.375 GM PREMIX 3.375 GM/50 ML BAG IV (22:20)
--- NOTE | 2024-06-06 22:59 | XR_ITS ---
Examination: CT bilateral lower extremity, without contrast. 2-D sagittal reconstructions. 2-D coronal reconstructions. 3-D reconstructions. Date and time of exam:June 07, 2024 at 0004 hrs. Indications: Redness swelling and pain involving the lower extremities today CTDI: vol (mGy):18.3 DLP: (mGycm):2103 Technique: Multiple 1.25 mm axial sections of the bilateral lower extremities without intravenous contrast have been obtained. 2-D sagittal and coronal reconstructions have been obtained. 3-D reconstructions have been obtained. Low dose protocols were performed. One or more of the following dose reduction techniques were used; automated exposure control, adjustment of the mA and/or KV according to patient size, use of iterative reconstruction technique. Findings: Normal appendix No pelvic abscess Inflammation surrounding the left external iliac and left common femoral veins without definite abscess Reactive left groin lymph nodes including the upper medial thigh Fat-containing left inguinal hernia Mild edema in the subcutaneous tissues surrounding the lower legs Marked thickening of the left Achilles tendon with possible subdural fluid accumulation Impression: Inflammation surrounding the left external iliac or common femoral veins without definite abscess, recommend ultrasound left groin testicular sonography follow-up Diffuse edema in the subcutaneous fatty tissue lower legs Markedly thickened Achilles tendon with possible fluid collections on the left, recommend MRI left ankle without contrast follow-up
[2024-06-06] MEDS: Vancomycin Inj 1,000 MG in SODIUM CHLORIDE 0.9% 250 ML 250 ML 150 MG IV (23:05)
[2024-06-06 23:21] LABS: Reflex Lactate? Y
[2024-06-07] VITALS (37 sets, daily range): BP systolic 85–163; BP diastolic 56–109; PULSE 60–94; RESP 16–94; TEMP 36.4–40.2; O2SAT 91–100; BMI 45.3
--- NOTE | 2024-06-07 01:18 | PRELIM_ITS ---
CT scan of both lower extremities without intravenous contrast (axial sections with sagittal and coronal reformats) June 07, 2024 0004 hours Clinical History: abscess Comparison: Ultrasound of November 05, 2023. Findings: The visualized bones are unremarkable. No fracture or dislocation is noted. No joint effusion is noted. The visualized muscles are unremarkable with maintained intermuscular fat planes. Vascular calcifications. No collections. No evidence of osteomyelitis. Subcutaneous fat edema and questionable developing collection posterior to the left Achilles tendon. Left lower extremity subcutaneous fat edema associated with mild skin thickening. Impression: Subcutaneous fat edema and questionable developing collection posterior to the left Achilles tendon. Consider correlation with MRI and/or ultrasound. Left lower extremity subcutaneous fat edema associated with mild skin thickening, suspicious for cellulitis.. Report Electronically Signed By: Shahab Reeves 06/07/2024 1:19:32 AM [EST]
[2024-06-07 01:19] LABS: Lactate (Lactic Acid) 5.9 mMol/L (0.4-2.0)
[2024-06-07 01:53] LABS: Creatine Kinase 267 U/L (34-171)
--- NOTE | 2024-06-07 01:55 | PC.NURSE ---
Spoke to resident Dr. Solis made aware rectal temp 104.3. Per MD, will put in new orders.
--- NOTE | 2024-06-07 02:13 | XR_ITS ---
Examination: CT chest, without intravenous contrast. CT abdomen, without intravenous contrast. CT pelvis, without intravenous contrast. 2-D sagittal and coronal reconstructions. 3-D reconstructions. Date and time of exam:June 07, 2024 0654 hrs. Indications: Sepsis today, shortness of breath fever beginning last night CTDI vol (mgy) 20.4 DLP (MGycm)1605 Technique: Multiple CT images, 3.0 mm slice thickness, obtained chest, abdomen, pelvis, with the high-resolution 64 slice scanner.. Sagittal and coronal 2-D reconstructions are obtained. 3-D reconstructions Low dose protocols were performed. One or more of the following dose reduction techniques were used; automated exposure control, adjustment of the mA and/or KV according to patient size, use of iterative reconstruction technique. Findings: Thoracic aortic calcification no aneurysmal dilatation Pulmonary artery segments are not enlarged. Prominent calcification left main left anterior descending left circumflex coronary arteries Mitral valvular calcification Atelectasis versus mild pneumonia at the lung bases No visualized liver or splenic lesion, liver is mildly irregular contour No definite gallstones No pancreatic mass Perinephric stranding Aorta in the abdomen normal size Normal appendix 21 mm fat-containing umbilical hernia Trace ascites Contracted urinary bladder No significant prostatomegaly Inflammation in the left groin for instance axial image 346 enlarged left groin lymph node 28 mm No angel abscess Significant osteopenia with diffuse advanced lumbar disc narrowing Impression: Bibasilar atelectasis versus early pneumonia Suspect primary hepatocellular disease Perinephric stranding, consider urinary tract infection Trace ascites 21 mm fat-containing umbilical hernia Inflammation in the left groin, cellulitis pattern without definite abscess, consider testicular sonography ultrasound left perineum follow-up
--- NOTE | 2024-06-07 02:20 | PC.NURSE ---
Spoke to Dr. Parmar/Dr. Solis regarding new orders for bolus of NS x2. MD made aware urine output at this time was 250cc, pt already received 3L NS bolus. Per MD, please infuse ordered bolus dose.
[2024-06-07] MEDS: ACETAMINOPHEN IVPB 1,000 MG/100 ML VIAL 250 MG IV ×2 (02:53→16:45)
[2024-06-07 02:54] LABS: Thyroid Stimulating Hormone 4.35 uIU/mL (0.55-4.78)
[2024-06-07] MEDS: SODIUM CHLORIDE 0.9% 1000 ML 1,000 ML 999 ML IV ×2 (02:54→04:32)
[2024-06-07 04:14] LABS: Reflex Lactate? Y
--- NOTE | 2024-06-07 04:32 | ESHP_ITS ---
<Statement entered by Sal Stack MD - 06/08/24 23:11> 69-year-old male with multiple comorbidities including hypertension, hyperlipidemia, chronic varicose veins with subsequent chronic venous stasis and patient is status post pacemaker placement who presented with altered mentation and fevers. In the ER, patient was noted to have fevers with a peak of 105.9 and upon initial encounter patient was noted to be confused with blurry vision however denies neck stiffness or photophobia. In addition, patient was also noted to have 1 tonic-clonic seizure in the ER. Furthermore, patient underwent CT head with no acute intracranial abnormality and patient sepsis likely related to possible meningeal encephalitis versus bacteremia. As a result, plan to admit the patient and obtain a lumbar puncture by interventional radiology (or internal medicine team attempted however was unsuccessful at this point). Furthermore, plan to initiate Rocephin 2 g daily, acyclovir, ampicillin and vancomycin and monitor patient closely.I reviewed above note and agree with findings and plans. I have also personally examined the patient with medicine team and went over assessment and plan with medical team including creative intern and resident physician. Documentation for date of: 06/07/24 HPI History of Present Illness History of present illness: HPI is limited as patient is poor historian and altered. History obtained through speaking with some family and chart review Jaylen is a 69 y/o male with PMHx Chronic venous hypertension, bilateral lower extremity ulcers, chronic varicose veins, chronic venous stasis, valvular disease, status post pacemaker (2018, Dr. Muse), and hypertension chronic lower extremity edema CHF, history of CVA, BPH, obesity, who comes in for an evaluation of elevated temperature, altered mental status and lethargy. Patient's son is at bedside with reported that patient had progressively get worse over the past couple of days. He also says that some of his family members in the house have gotten the flu and they thought he was getting sick with the flu. Patient continued to worsen with his altered mental status and he decided to come to the ED for further workup. No recent travel or recent illnesses. He does follow with a vascular surgeon, Dr. Posada, and also sees the wound clinic twice a week to manage his chronic venous ulcers. There was talk at some point of getting a bilateral BKA to manage his ulcers. He complains of having elevated temperatures, however no chest pain but is experiencing some shortness of breath. He also has been getting a headache, with some changes with vision as described blurry. No recent trauma, denies any nausea vomiting diarrhea. No other complaints at this time. ED course: Patient arrived with a temperature of 103 (temperature reaching up to 106 in the ED), heart rate 60, tachypneic with a rate of 28, blood pressure 149/68, respiratory rate 98 on 2 L nasal cannula. He was worked up and was found to have white count of 20, hemoglobin 14.8, ABG showed pH of 7.52, pCO2 of 20, potassium 4.7, sodium 137, bicarb 21.5, BUN/creatinine 21 and 1.7 respectively, lactate 3,.3 AST ALT 26 and 14 respectively, CK 267. Urinalysis showed +3 protein, +2 blood, 7 RBCs. Chest x-ray showed mild heart failure. Head CT negative for acute hemorrhage, midline shift or mass effect. Patient was given 2 L NS, Tylenol 650 mg x 2, Zosyn and Vanco x 1. Medicine was consulted and patient admitted to floors. Past medical history: As above Surgical history: Pacemaker placement 2018 Meds: [place] 10, clonidine 0.2, Metoprol tartrate 50, Aldactone 25, nitro as needed, Lexapro 20, amlodipine 5, baby aspirin Allergies: Latex gives him rash Family history: Limited family history, unsure if there is family history of stroke, heart disease or diabetes Social history: Denies any oral or IV drug use, denies ever being a heavy drinker, no smoking history Review of Systems Review of Systems Narrative Review of Systems: ROS Limited as patient is poor historian and is confused Exam Vital Signs Temp Pulse Resp BP Pulse Ox O2 Del Method O2 Flow Rate 104.3 F H 66 30 H 104/58 L 98 Nasal Cannula 2 06/07/24 01:45 06/07/24 01:45 06/07/24 01:45 06/07/24 01:45 06/07/24 01:45 06/07/24 01:45 06/07/24 01:45 Narrative Exam General: AAOx2, in mild distress, obese male, not able to fully answer questions HEENT: Dry mucous membranes, conjunctiva clear, EOMI, PERRLA, no nuchal rigidity appreciated Cardiovascular: Murmur appreciated appreciated BER[place], radial pulses +2 bilat, RRR, Pulmonary: Difficulty appreciating breath sounds, no cough GI: No tenderness to light or deep palpitation, no guarding, rigidity, rebound tenderness or distension : Payne catheter present Extremities: Chronic venous stasis, multiple ulcers located in LE including plantar foot, achilles tendon, foul smelling Neuro: AAOx2, unable to fully participate, no nuchal rigidity appreciated Results: Labs 06/07/24 05:21 06/07/24 05:21 Labs: Short CBC 06/06/24 Range/Units 20:15 WBC 20.0 H (3.8-10.6) Thou/mm3 Hgb 14.8 (13.5-16.0) g/dL Hct 44.2 (41.0-53.0) % Plt Count 158 (140-440) Thou/mm3 BMP 06/06/24 20:15 Sodium 137 Potassium 4.7 Chloride 105 Carbon Dioxide 21.5 BUN 21 Creatinine 1.7 H Glucose 111 H Calcium 9.6 Cardiac Enzymes 06/07/24 Range/Units 01:09 Total Creatine Kinase 267 H (34-171) U/L Liver Function 06/06/24 Range/Units 20:15 Total Bilirubin 0.8 (0.3-1.2) mg/dL AST 26 (0-34) U/L ALT 14 (10-49) U/L Alkaline Phosphatase 97 (46-116) U/L Albumin 3.8 (3.4-4.8) gm/dL Urine 06/06/24 Range/Units 20:59 Urine Color Yellow (Lt Yel-Yel) Urine Clarity Clear (Clear/Hazy) Urine pH 6.0 (5.0-7.0) Ur Specific [place] 1.027 (1.001-1.035) Urine Protein 3+ A (Neg - Trace) Urine Glucose (UA) Negative (Negative) ABG Interpretation ABG results: 06/06/24 21:29 ABG pH 7.52 H ABG pCO2 20 L ABG pO2 63 L ABG HCO3 16 L ABG O2 Saturation 95 ABG Base Excess -4 L Quality Measures Quality Measures VTE prophylaxis (heparin) Advance care planning discussed with:: patient and child Medications Home Medications and Allergies Home Medications ?Medication ?Instructions ?Recorded ?Confirmed ?Type nitroglycerin 0.4 mg sublingual 0.4 mg SL PRN PRN CHES T TIGHTNESS 12/20/16 07/03/23 History tablet (Nitrostat) #0 tabs amlodipine 5 mg tablet 5 mg PO QDAY 06/04/22 History aspirin 81 mg chewable tablet 81 mg PO QDAY 06/04/22 0 07/03/23 History clonidine HCl 0.2 mg tablet 0.2 mg PO BID 06/04/2202/14 History escitalopram oxalate 20 mg tablet 20 mg PO QDAY 07/03/23 History metoprolol tartrate 50 mg tablet 50 mg PO BID 06/04/22 07/03/23 History tamsulosin 0.4 mg capsule (Flomax) 0.4 mg PO QDAY 05/2207/03/23 History spironolactone 25 mg tablet 25 mg PO BID 07/03/2306/22 History Allergies Allergy/AdvReac Type Severity Reaction Status Date / Time latex Allergy Rash Verified 11/04/23 21:49 Visit Medications Hydrocodone Bitart/Acetaminophen (Hydrocodone/Apap 10/325 Tab) 1 tab PO Q4H PRN PRN Reason: PAIN SCALE 4-6 (Moderate Stop: 06/12/24 04:19 Heparin Sodium (Porcine) (Heparin Sod Inj 5000 Unit/Ml Vial) 5,000 unit SC Q12H ISHA Stop: 06/21/24 04:29 Ampicillin Sodium 2,000 mg/ (Sodium Chloride) 100 mls @ 100 mls/hr IV Q4HR ISHA Stop: 06/14/24 09:59 Ceftriaxone Sodium 2 gm/ (Sodium Chloride) 50 mls @ 100 mls/hr IV Q12HR ISHA Stop: 06/14/24 08:59 Acyclovir Sodium 998 mg/ (Sodium Chloride) 119.96 mls @ 100 mls/hr IV Q8HR ISHA Stop: 06/14/24 05:59 Ampicillin Sodium 2,000 mg/ (Sodium Chloride) 100 mls @ 100 mls/hr IV Q4HR ISHA Stop: 06/07/24 06:59 Ondansetron HCl (Ondansetron Inj 2 Mg/Ml Inj 2 Ml) 4 mg IV Q6H PRN; Protocol PRN Reason: NAUSEA OR VOMITING Stop: 07/07/24 04:25 Discontinued Medications Acetaminophen (Acetaminophen Supp 650 Mg Supp) 650 mg NV X1 ONE Stop: 06/06/24 20:07 Last Admin: 06/06/24 20:41 Dose: 650 mg Acetaminophen (Acetaminophen Supp 650 Mg Supp) 650 mg NV X1 ONE Stop: 06/06/24 21:39 Last Admin: 06/06/24 22:40 Dose: 650 mg Sodium Chloride (Ns) 1,000 mls @ 999 mls/hr IV .Q1H1M ONE Stop: 06/06/24 21:13 Last Infusion: 06/06/24 22:50 Dose: Infused Sodium Chloride (Ns) 1,000 mls @ 999 mls/hr IV .Q1H1M ONE Stop: 06/06/24 21:13 Last Infusion: 06/07/24 01:35 Dose: Infused Piperacillin/Tazobactam/Dextrose (Zosyn) 3.375 gm in 50 mls @ 100 mls/hr IV X1 ONE Stop: 06/06/24 21:46 Last Infusion: 06/06/24 23:06 Dose: Infused Vancomycin HCl 1,000 mg/ (Sodium Chloride) 250 mls @ 150 mls/hr IV X1 ONE Stop: 06/07/24 00:35 Last Infusion: 06/07/24 01:49 Dose: Infused Sodium Chloride (Ns) 1,000 mls @ 999 mls/hr IV .Q1H1M ONE Stop: 06/07/24 00:05 Last Infusion: 06/07/24 02:34 Dose: Infused Sodium Chloride (Ns) 1,000 mls @ 999 mls/hr IV .Q1H1M ONE Stop: 06/07/24 03:01 Last Admin: 06/07/24 02:54 Dose: 999 mls/hr Acetaminophen (Ofirmev Inj) 1,000 mg in 100 mls @ 250 mls/hr IV X1 ONE Stop: 06/07/24 02:24 Last Admin: 06/07/24 02:53 Dose: 250 mls/hr Sodium Chloride (Ns) 1,000 mls @ 999 mls/hr IV .Q1H1M ONE Stop: 06/07/24 03:06 Ceftriaxone Sodium 2 gm/ (Sodium Chloride) 50 mls @ 100 mls/hr IV X1 ONE Stop: 06/07/24 03:29 Acyclovir Sodium 684 mg/ (Sodium Chloride) 113.68 mls @ 94.755 mls/hr IV X1 ONE Stop: 06/07/24 04:11 Assessment & Plan Plan Assessment Jaylen is a 69 y/o male with PMHx Chronic venous hypertension, bilateral lower extremity ulcers, chronic varicose veins, chronic venous stasis, valvular disease, status post pacemaker (2018, Dr. Muse), and hypertension chronic lower extremity edema CHF, history of CVA, BPH, obesity, who is admitted for sepsis and acute encephalopathy. #Sepsis #Acute encephalopathy #Lactic acidosis type B #Seizure, unknown etiology DDx: Meningitis, encephalitis, abscess, endocarditis, thyroid storm, serotonin syndrome, heatstroke Encephalopathy multifactorial including metabolic and infectious White count 20, Temp reaching up to 106, was given multiple bouts of Tylenol and has only slightly improved patient's temperature With patient's temperature of 106, broad workup needs to be done including meningitis/encephalitis We attempted lumbar puncture however unable to get sample, will order IR lumbar puncture Patient does have history of MRSA, 2 times He stroke unlikely as patient has not been sitting outside and temperature is not hot outside Pt is only on Lexapro, unlikely serotonin syndrome due to one SSRI agent Will need to follow-up TSH level for myxedema coma Patient does also have hardware (pacemaker) and MRSA before, will need to rule out endocarditis GPC 2/2 bottles Lactate 3.3 -> 5.9 -> 3.7 After 5L of fluid qSOFA: 2 points 3 out of 4 SIRS criteria, no tachycardia Sepsis due to 3/4 SIRS criteria with acute sepsis-related organ dysfunction as evidence by JEANETTE Sepsis bolus: 5L will cover for meningitis until ruled out Pt did have seizure in ER Plan: ? Rocephin 2 g IV daily ? Acyclovir, ampicillin IV ? Vancomycin pharmacy to dose ? Follow-up urine cultures ? Follow-up blood cultures ? IR lumbar puncture ? Trend lactate ? Follow-up MRSA screen ? Consider ID consult ? Consider cardiology consult ? Neuro check q4h ? Seizure precautions ? Follow up CT Abd/pelvis #Chronic venous hypertension #Chronic lower extremity ulcers #Chronic varicose veins #Chronic venous stasis # ? Osteomyelitis Follows vascular and wound care 2x a week MRSA infections in past Plan: ? Follow up CT LE w/contrast ? Follow up MRSA nares ? 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 Consider cardiology consult ? Holding to resume blood pressure ? TTE ordered #History of BPH Plan: ? Payne ? Consider resuming Flomax ? F/u Bladder scan #Health Maintenance Disposition: Telemetry DVT prophylaxis: Heparin q12h GI prophylaxis: None indicated at this time Diet: Pending swallow eval CODE STATUS: Full Patient seen and care discussed with my attending physician, Dr. Sreekanth Parmar, PGY-1
[2024-06-07] MEDS: cefTRIAXone 2 GM in SODIUM CHLORIDE 0.9% (Popper) 50 ML IV ×2 (04:34→23:28)
[2024-06-07] MEDS: SODIUM CHLORIDE 0.9% IV (05:29)
[2024-06-07] MEDS: ACYCLOVIR IV (05:29)
[2024-06-07] MEDS: HEPARIN SOD INJ 5000 UNIT/ML VIAL SC ×2 (05:30→23:28)
[2024-06-07 05:45] LABS: Lactic Acid, 3 HR 3.7 mMol/L (0.4-2.0)
[2024-06-07 05:52] LABS: Basophils % (Auto) 0 % (0-2.5); Eosinophils % (Auto) 0 % (0-10); Hematocrit 38.8 % (41.0-53.0); Hemoglobin 12.8 g/dL (13.5-16.0); Immature Granulocytes % (Auto) 1 % (0-0); Immature Granulocytes Auto 0.22 Thou/mm3 (0.00-0.00); Lymphocytes # (Auto) 0.5 Thou/mm3 (1.0-4.8); Lymphocytes % (Auto) 3 % (10-50); Mean Corpuscular Hemoglobin 29.4 pg (25.0-35.0); Mean Corpuscular Volume 89 fL (80-100); Monocytes # (Auto) 0.6 Thou/mm3 (0.0-0.8); Monocytes % (Auto) 3 % (0-12); Neutrophils # (Auto) 18.1 Thou/mm3 (1.8-7.7); Neutrophils % (Auto) 93 % (37-80); Nucleated Red Blood Cell % 0 /100 WBC (0); Platelet Count 113 Thou/mm3 (140-440); RDW Standard Deviation 44.2 fL (35.1-43.9); Red Blood Count 4.35 Miln/mm3 (4.50-5.90); White Blood Count 19.6 Thou/mm3 (3.8-10.6)
[2024-06-07 06:10] LABS: Glucose Estimated Average 117 mg/dL (80-131); Hemoglobin A1C 5.7 % Hgb (4.8-6.0)
[2024-06-07 06:26] LABS: Alanine Aminotransferase 11 U/L (10-49); Albumin, Serum 2.8 gm/dL (3.4-4.8); Albumin/Globulin Ratio 1.1 (1.2-2.2); Alkaline Phosphatase 66 U/L (46-116); Anion Gap 13 (7-16); Aspartate Amino Transferase 27 U/L (0-34); BUN/Creatinine Ratio 13 Ratio (12-20); Blood Urea Nitrogen 25 mg/dL (9-23); Calcium 7.6 mg/dL (8.3-10.6); Calcium (Corrected) 8.6 mg/dL (8.5-10.1); Chloride 111 mMol/L (98-107); Cholesterol 78 mg/dL (132-200); Estimated Creatinine Clearance 38.8 mL/min (>60); Globulin 2.5 gm/dL (2.3-3.5); Glucose 106 mg/dL (74-106); HDL Cholesterol 26 mg/dL (40-60); LDL Cholesterol,Calculated 36 mg/dL (0-130); Osmolality,Calculated 280 (275-295); Potassium 3.9 mMol/L (3.4-5.1); Sodium 138 mMol/L (136-145); Total Protein 5.3 gm/dL (5.7-8.2); Triglycerides 79 mg/dL (30-150); eGFR 35 See Note
[2024-06-07 06:28] LABS: INR 1.4 (0.9-1.3); Partial Thromboplastin Time 31.1 Seconds (22.0-36.0); Prothrombin Time 14.5 Seconds (9.0-12.2)
[2024-06-07 06:30] LABS: Carbon Dioxide 13.7 mMol/L (20.0-31.0)
--- NOTE | 2024-06-07 06:30 | PC.NURSE ---
Called hospitalist spoke to Dr. Parmar. Made aware of urine output after the additional bolus NS x2L, output is 250ml. Now orders received for bladder scan.
--- NOTE | 2024-06-07 06:46 | PC.NURSE ---
Pt taken to CT via gallo
[2024-06-07] MEDS: Ampicillin Inj 2,000 MG in SODIUM CHLORIDE 0.9% (POP) 100 ML 100 MG IV ×2 (07:03→12:38)
[2024-06-07 07:24] LABS: Quantiferon-TB* See Sep Rpt
--- NOTE | 2024-06-07 08:10 | PC.LAC ---
CALLED PHARMACY FOR MG
--- NOTE | 2024-06-07 08:18 | PC.NURSE ---
PER PHARMACIST SAWYER AMPICILLIN ORDER ON MAY IS INCORRECT IT WAS ORDERED TWO BAGS TO EQUAL 2G BUT ONE BAG WAS GIVEN WITH 2G ORDERED IN CORRECT PT ALREADY GOT THE 2G WILL NOT GIVE ANOTHER BAG TO NEXT SCHEDULED DOSE.
[2024-06-07] MEDS: Magnesium Sulfate 4 GM Ivpb 4 GM/50 ML BAG IV ×2 (08:36→11:54)
--- NOTE | 2024-06-07 08:38 | PC.NURSE ---
PER DR. MITTAL BLADDER SCAN NOT NEEDED
[2024-06-07 08:42] LABS: Base Excess -9 (-3-3); HCO3 15 mEq/L (20-26); Inspired O2, VO2 Liters 1 L/min; Inspired Oxygen, FIO2 21 %; O2 Saturation 97 % (91-98); PCO2 27 mmHg (32.0-48.0); PO2 81 mmHg (83-108); pH, Arterial 7.35 (7.35-7.45)
[2024-06-07 08:43] LABS: Allen Test Not Performed; Puncture Site Right Radial
--- NOTE | 2024-06-07 08:43 | PC.NURSE ---
NURSE SWALLOW SCREEN NOT DONE YET PT HAS BEEN SLEEPING,
[2024-06-07 09:06] LABS: Vancomycin,Random 8.8 mcg/mL
--- NOTE | 2024-06-07 09:39 | XR_ITS ---
Examination: Testicular sonography complete TECHNIQUE: Grayscale sonographic images testes, assessment arterial inflow venous outflow Doppler spectral analysis carful analysis Exam date and time: June 07, 2024 at 1139 hours INDICATIONS: Left groin inflammation and swelling this week FINDINGS: Right testis 4.6 cm epididymis 11 mm No testicular torsion or testicular mass Small testicular cysts, 4 mm, 5 mm Arterial flow testicle Left testis 4.7 cm epididymis 16mm Left epididymal cysts 12 mm, 8mm Arterial flow testicle. No testicular solid mass Left testicular cyst 8 mm, 6 mm IMPRESSION: No testicular torsion or testicular mass Bilateral benign testicular cysts Benign left epididymal cysts
[2024-06-07] MEDS: VANCOMYCIN/NS 1 GM IVPB 200 ML IV (10:23)
--- NOTE | 2024-06-07 10:43 | PC.NURSE ---
per dr. vaughn will cancel lumbar by xray
[2024-06-07 10:47] LABS: Collection Type, Urine Clean Catch
--- NOTE | 2024-06-07 11:06 | PC.NURSE ---
called dr. vaughn to confirm he wanted 4 gm more of mag iv
[2024-06-07 11:07] LABS: Reflex Lactate? Y
--- NOTE | 2024-06-07 11:09 | PC.NURSE ---
called pharmacy for mg
[2024-06-07 11:14] LABS: Amorphous Crystals,Urine Present (Absent); Bacteria,Urine Rare; Bilirubin,Urine Negative (Negative); Blood,Urine 3+ (Negative); Clarity,Urine Turbid (Clear/Hazy); Color,Urine Yellow (Lt Yel-Yel); Glucose, Urine Negative (Negative); Ketones,Urine Trace (Negative); Leukocyte Esterase,Urine Negative (Negative); Nitrite,Urine Negative (Negative); Protein,Urine 2+ (Neg - Trace); RBC,Urine 328 /hpf (0-3); Specific Gravity,Urine 1.033 (1.001-1.035); Squamous Epithelial Cell,Urine < 1 /hpf (0-5); Transitional Epi Cells,Urine < 1 /hpf (0-5); WBC,Urine 7 /hpf (0-5)
[2024-06-07 11:21] LABS: Amphetamine/Methamp Scrn,U Negative (Negative); Barbiturate Screen,Urine Negative (Negative); Benzodiazepines Screen,Urine Negative (Negative); Benzoylecgonine Screen, Ur Negative (Negative); Fentanyl Screen,Urine Negative (Negative); Opiate Screen,Urine Positive (Negative); THC Screen,Urine Negative (Negative)
[2024-06-07 12:03] LABS: Lactic Acid, 3 HR 4.6 mMol/L (0.4-2.0)
[2024-06-07] MEDS: SODIUM BICARB INJ 8.4% 1 mEq/ML 50 ML VIAL 50 MEQ IV (12:23)
[2024-06-07] MEDS: RINGERS LACTATED 1000 ML 1,000 ML 999 ML IV (12:30)
--- NOTE | 2024-06-07 12:39 | ESPR_ITS ---
<Statement entered by Jennifer Salvador MD - 06/08/24 07:57> Patient was seen and examined by me personally. I have directly supervised and reviewed documentation by the team resident and agree with its findings with any exceptions or additional findings as below. Plan of care was discussed with the attending, Dr. Chavez. Overnight admit. Patient is a 69-year-old male with past medical history of chronic venous hypertension, bilateral lower extremity ulcers, chronic varicose veins, chronic venous stasis, valvular disease, status post pacemaker (2018, Dr. Muse), and hypertension, history of seizures, chronic lower extremity edema CHF, history of CVA, BPH, obesity, who was admitted for severe sepsis and acute encephalopathy. He had fevers up to 105.9 and blood cultures are growing preliminary GPC in 2/2 samples. Thus far workup has been nonrevealing of a source, including CT head, chest, abdomen, pelvis, and lower extremities. Testicular US was done due to possible thickening visualized on the CT. Consulted with ID and repeat blood cultures were recommended. Patient has no meningeal signs on examination. Night team started empiric acyclovir and ampicillin, these were stopped due to low suspicion of meningitis. Lactate continues to be high, suspect poor renal clearance. Patient is s/p 6L fluid today and received 3950 mg acetaminophen. Will continue to follow cultures and treat with empiric IV ceftriaxone 2 mg qday and IV vancomycin. Jennifer Salvador, PGY-2 Documentation for date of: 06/07/24 Subjective Subjective Interval history: 06/07/2024: Overnight admission for 69-year-old male with past medical history of valvular heart disease, pulmonary hypertension, history of seizures, pacemaker placement followed by Dr. Muse, hypertension, CKD stage IIIb who presented to the hospital with fever/chills and acute encephalopathy. In the ED, patient had temperature of 105 Fahrenheit, lactic acid of 5.9, WBC elevated at 20, head CT negative and chest x-ray shows no signs of active disease. During admission, blood cultures were positive for gram-positive cocci from both sets. Patient is admitted for sepsis secondary to bacteremia likely from skin wounds versus other source. Radiology recommended ultrasound of the testicular region based off CT findings showing some cellulitis in the left perineal region but ultrasound was largely negative. On exam today, patient is awake and answering questions appropriately, there is no meningeal signs but the patient does have wheezing noted on bilateral lung ortega. Patient will continue to be on IV antibiotics we will continue to monitor lactic acid which is progressively uptrending even with IV fluid resuscitation. Will consider consulting ICU if lactic acid continues to worsen. Exam Vital Signs Temp Pulse Resp BP Pulse Ox O2 Del Method O2 Flow Rate 99.1 F 60 24 H 118/67 97 Nasal Cannula 2 06/07/24 10:06/07/24 10:06/07/24 10:06/07/24 10:06/07/24 10:06/07/24 10:06/07/24 10:17 Narrative Exam Physical Exam: General: Awake, obese male, answers questions appropriately but slowly HEENT: Dry mucous membranes, conjunctiva clear, EOMI, PERRLA Cardiovascular: III/ systolic ejection murmur noted on left sternal border, radial pulses +2 bilat, RRR Pulmonary: On 2 L nasal cannula. Wheezing noted bilaterally but no crackles/rales or rhonchi GI: No tenderness to light or deep palpitation, no guarding, rigidity, rebound tenderness or distension : Payne catheter present, dark yellow urine noted Extremities: Chronic venous stasis, multiple ulcers located in LE including plantar foot, achilles tendon, bleeding lesion noted on right lower forearm Neuro: AAOx2, no nuchal rigidity appreciated, Kernig and Brudzinski test negative, able to move extremities x 4, no focal neurologic deficits noted Objective Labs 06/07/24 05:21 06/07/24 14:05 Labs: Laboratory Results - last 24 hr 06/06/24 06/06/24 06/06/24 20:15 20:59 21:29 WBC 20.0 H RBC 5.02 Hgb 14.8 Hct 44.2 MCV 88 MCH 29.5 MCHC 33.5 RDW Std Deviation 43.6 Plt Count 158 Neut % (Auto) 88 H Lymph % (Auto) 4 L Bacon % (Auto) 7 Eos % (Auto) 0 Baso % (Auto) 0 Neut # (Auto) 17.6 H Lymph # (Auto) 0.8 L Bacon # (Auto) 1.5 H Eos # (Auto) 0.0 Baso # (Auto) 0.1 Immature Gran # (Auto) 0.12 H Absolute Nucleated RBC 0.00 Immature Gran % 1 H Nucleated RBC % 0 PT 13.1 H INR 1.2 APTT 28.1 Puncture Site Left Radial ABG pH 7.52 H ABG pCO2 20 L ABG pO2 63 L ABG HCO3 16 L ABG O2 Saturation 95 ABG Base Excess -4 L Oxygen Liter Flow FiO2 21 Sodium 137 Potassium 4.7 Chloride 105 Carbon Dioxide 21.5 Anion Gap 11 BUN 21 Creatinine 1.7 H Estim Creat Clear Calc 45.6 L eGFR 43 L BUN/Creatinine Ratio [address] Glu mg/dL Hemoglobin A1c Calculated Osmolality 277 Lactic Acid 3.3 H Calcium 9.6 Corrected Calcium 9.8 Magnesium Total Bilirubin 0.8 AST 26 ALT 14 Alkaline Phosphatase 97 Total Creatine Kinase Total Protein 7.1 Albumin 3.8 Globulin 3.3 Albumin/Globulin Ratio 1.2 Triglycerides Cholesterol LDL Cholesterol, Calc HDL Cholesterol Cholesterol/HDL Ratio Procalcitonin 0.88 H TSH Ur Collection Type Voided Urine Color Yellow Urine Clarity Clear Urine pH 6.0 Ur Specific Kake 1.027 Urine Protein 3+ A Urine Glucose (UA) Negative Urine Ketones Negative Urine Blood 2+ A Urine Nitrite Negative Urine Bilirubin Negative Urine Urobilinogen (Auto) 4.0 Ur Leukocyte Esterase Negative Urine RBC 7 H Urine WBC 2 Ur Squamous Epith Cells 0 Ur Transition Epith Cell Amorphous Crystals Urine Bacteria None Random Vancomycin Urine Opiates Screen Urine Fentanyl Screen Ur Barbiturates Screen U Amphetamin/Meth Scrn U Benzodiazepines Scrn U Cocaine Metab Screen U Marijuana (THC) Screen 06/07/24 06/07/24 06/07/24 01:09 02:00 05:21 WBC 19.6 H RBC 4.35 L Hgb 12.8 L D Hct 38.8 L MCV 89 MCH 29.4 MCHC 33.0 RDW Std Deviation 44.2 H Plt Count 113 L D Neut % (Auto) 93 H Lymph % (Auto) 3 L Bacon % (Auto) 3 Eos % (Auto) 0 Baso % (Auto) 0 Neut # (Auto) 18.1 H Lymph # (Auto) 0.5 L Bacon # (Auto) 0.6 Eos # (Auto) 0.0 Baso # (Auto) 0.0 Immature Gran # (Auto) 0.22 H Absolute Nucleated RBC 0.00 Immature Gran % 1 H Nucleated RBC % 0 PT 14.5 H INR 1.4 H APTT 31.1 Puncture Site ABG pH ABG pCO2 ABG pO2 ABG HCO3 ABG O2 Saturation ABG Base Excess Oxygen Liter Flow FiO2 Sodium 138 Potassium 3.9 D Chloride 111 H Carbon Dioxide 13.7 L* Anion Gap 13 BUN 25 H Creatinine 2.0 H Estim Creat Clear Calc 38.8 L eGFR 35 L BUN/Creatinine Ratio [address] Glu mg/dL 117 Hemoglobin A1c 5.7 Calculated Osmolality 280 Lactic Acid 5.9 H* 3.7 H Calcium 7.6 L D Corrected Calcium 8.6 Magnesium 1.0 L Total Bilirubin 1.0 AST 27 ALT 11 Alkaline Phosphatase 66 D Total Creatine Kinase 267 H Total Protein 5.3 L Albumin 2.8 L D Globulin 2.5 Albumin/Globulin Ratio 1.1 L Triglycerides 79 Cholesterol 78 L LDL Cholesterol, Calc 36 HDL Cholesterol 26 L Cholesterol/HDL Ratio 3.0 L Procalcitonin TSH 4.35 Ur Collection Type Urine Color Urine Clarity Urine pH Ur Specific Kake Urine Protein Urine Glucose (UA) Urine Ketones Urine Blood Urine Nitrite Urine Bilirubin Urine Urobilinogen (Auto) Ur Leukocyte Esterase Urine RBC Urine WBC Ur Squamous Epith Cells Ur Transition Epith Cell Amorphous Crystals Urine Bacteria Random Vancomycin 8.8 Urine Opiates Screen Urine Fentanyl Screen Ur Barbiturates Screen U Amphetamin/Meth Scrn U Benzodiazepines Scrn U Cocaine Metab Screen U Marijuana (THC) Screen 06/07/24 06/07/24 06/07/24 08:02 08:28 10:30 WBC RBC Hgb Hct MCV MCH MCHC RDW Std Deviation Plt Count Neut % (Auto) Lymph % (Auto) Bacon % (Auto) Eos % (Auto) Baso % (Auto) Neut # (Auto) Lymph # (Auto) Bacon # (Auto) Eos # (Auto) Baso # (Auto) Immature Gran # (Auto) Absolute Nucleated RBC Immature Gran % Nucleated RBC % PT INR APTT Puncture Site Right Radial ABG pH 7.35 D ABG pCO2 27 L ABG pO2 81 L ABG HCO3 15 L ABG O2 Saturation 97 ABG Base Excess -9 L Oxygen Liter Flow 1 FiO2 21 Sodium Potassium Chloride Carbon Dioxide Anion Gap BUN Creatinine Estim Creat Clear Calc eGFR BUN/Creatinine Ratio Glucose Estimated Ave Glu mg/dL Hemoglobin A1c Calculated Osmolality Lactic Acid 4.0 H Calcium Corrected Calcium Magnesium Total Bilirubin AST ALT Alkaline Phosphatase Total Creatine Kinase Total Protein Albumin Globulin Albumin/Globulin Ratio Triglycerides Cholesterol LDL Cholesterol, Calc HDL Cholesterol Cholesterol/HDL Ratio Procalcitonin TSH Ur Collection Type Clean Catch Urine Color Yellow Urine Clarity Turbid A Urine pH 6.0 Ur Specific Kake 1.033 Urine Protein 2+ A Urine Glucose (UA) Negative Urine Ketones Trace Urine Blood 3+ A Urine Nitrite Negative Urine Bilirubin Negative Urine Urobilinogen (Auto) 2.0 Ur Leukocyte Esterase Negative Urine RBC 328 H Urine WBC 7 H Ur Squamous Epith Cells < 1 Ur Transition Epith Cell < 1 Amorphous Crystals Present A Urine Bacteria Rare Random Vancomycin Urine Opiates Screen Positive A Urine Fentanyl Screen Negative Ur Barbiturates Screen Negative U Amphetamin/Meth Scrn Negative U Benzodiazepines Scrn Negative U Cocaine Metab Screen Negative U Marijuana (THC) Screen Negative 06/07/24 11:40 WBC RBC Hgb Hct MCV MCH MCHC RDW Std Deviation Plt Count Neut % (Auto) Lymph % (Auto) Bacon % (Auto) Eos % (Auto) Baso % (Auto) Neut # (Auto) Lymph # (Auto) Bacon # (Auto) Eos # (Auto) Baso # (Auto) Immature Gran # (Auto) Absolute Nucleated RBC Immature Gran % Nucleated RBC % PT INR APTT Puncture Site ABG pH ABG pCO2 ABG pO2 ABG HCO3 ABG O2 Saturation ABG Base Excess Oxygen Liter Flow FiO2 Sodium Potassium Chloride Carbon Dioxide Anion Gap BUN Creatinine Estim Creat Clear Calc eGFR BUN/Creatinine Ratio Glucose Estimated Ave Glu mg/dL Hemoglobin A1c Calculated Osmolality Lactic Acid 4.6 H* Calcium Corrected Calcium Magnesium Total Bilirubin AST ALT Alkaline Phosphatase Total Creatine Kinase Total Protein Albumin Globulin Albumin/Globulin Ratio Triglycerides Cholesterol LDL Cholesterol, Calc HDL Cholesterol Cholesterol/HDL Ratio Procalcitonin TSH Ur Collection Type Urine Color Urine Clarity Urine pH Ur Specific Kake Urine Protein Urine Glucose (UA) Urine Ketones Urine Blood Urine Nitrite Urine Bilirubin Urine Urobilinogen (Auto) Ur Leukocyte Esterase Urine RBC Urine WBC Ur Squamous Epith Cells Ur Transition Epith Cell Amorphous Crystals Urine Bacteria Random Vancomycin Urine Opiates Screen Urine Fentanyl Screen Ur Barbiturates Screen U Amphetamin/Meth Scrn U Benzodiazepines Scrn U Cocaine Metab Screen U Marijuana (THC) Screen ABG Interpretation ABG results: 06/06/24 06/07/24 21:29 08:28 ABG pH 7.52 H 7.35 D ABG pCO2 20 L 27 L ABG pO2 63 L 81 L ABG HCO3 16 L 15 L ABG O2 Saturation 95 97 ABG Base Excess -4 L -9 L Quality Measures Quality Measures VTE prophylaxis (heparin) Advance care planning discussed with:: patient Assessment & Plan Assessment Current Active Medications: Generic Name Dose Route Start Last Admin Trade Name Freq PRN Reason Stop Dose Admin Hydrocodone Bitart/Acetaminophen 1 tab 06/07/24 04:20 Hydrocodone/Apap 10/325 Tab PO 06/12/24 04:19 Q4H PRN PAIN SCALE 4-6 (Moderate Heparin Sodium (Porcine) 5,000 unit 06/07/24 04:30 06/07/24 05:30 Heparin Sod Inj 5000 Unit/Ml Vial SC 06/21/24 04:29 5,000 unit Q12HR ISHA Administration Ampicillin Sodium 2,000 mg/ 100 mls @ 100 mls/hr 06/07/24 12:00 06/07/24 12:38 Sodium Chloride IV 06/14/24 11:59 100 mls/hr Q6HR ISHA Administration Protocol Ceftriaxone Sodium 2 gm/ 50 mls @ 100 mls/hr 06/07/24 21:00 Sodium Chloride IV 06/14/24 20:59 Q12HR ISHA Acyclovir Sodium 684 mg/ 113.68 mls @ 94.755 mls/hr 06/07/24 21:00 Sodium Chloride IV 06/14/24 20:59 Q12HR ISHA Protocol Magnesium Sulfate 4 gm in 50 mls @ 12.5 mls/hr 06/07/24 11:00 06/07/24 11:54 Magnesium Sulfate Ivpb IV 06/07/24 14:59 12.5 mls/hr X1 ONE Administration Lactated Ringer's 1,000 mls @ 999 mls/hr 06/07/24 12:06 06/07/24 12:30 Lactated Ringers IV 06/07/24 13:06 999 mls/hr .Q1H1M ONE Administration Ondansetron HCl 4 mg 06/07/24 04:26 Ondansetron Inj 2 Mg/Ml Inj 2 Ml IV 07/07/24 04:25 Q6H PRN NAUSEA OR VOMITING Protocol Pharmacy Consult 1 each 06/07/24 09:00 Vancomycin Pharmacy To Dose 1 Each Each IV 07/07/24 08:59 QDAY PRN PROTOCOL Plan 69-year-old male with past medical history of chronic venous hypertension, bilateral lower extremity ulcers, chronic varicose veins, chronic venous stasis, valvular disease, status post pacemaker (2018, Dr. Muse), and hypertension, history of seizures, chronic lower extremity edema CHF, history of CVA, BPH, obesity, who is admitted for sepsis and acute encephalopathy #Acute encephalopathy, improving #Sepsis secondary to GPC bacteremia #Lactic acidosis #Bibasilar atelectasis vs. early PNA DDx: likely secondary to bacteremia vs. less likely encephalitis, abscess, endocarditis Encephalopathy multifactorial including metabolic and infectious Initially WBC 20, Temp reaching up to 105.9, was given multiple doses of Tylenol and has only slightly improved patient's temperature Patient does have history of MRSA Patient does also have hardware (pacemaker) and MRSA before, will need to rule out endocarditis GPC 2/2 bottles Lactate worsening qSOFA: 2 points; 3 out of 4 SIRS criteria, no tachycardia with acute sepsis- related organ dysfunction as evidence by JEANETTE IVF resuscitation CT Chest/Abd/P shows: Bibasilar atelectasis versus early pneumonia; Suspect primary hepatocellular disease; Perinephric stranding, consider urinary tract infection; Trace ascites 21 mm fat-containing umbilical hernia Inflammation in the left groin, cellulitis pattern without definite abscess. Plan: Continue Rocephin 2 g IV daily and Vancomycin pharmacy to dose Acyclovir, ampicillin IV discontinued - low suspicion for meningitis Duonebs q6h for wheezing Follow-up urine cultures Follow-up blood cultures sepciations Trending lactate Additional 1L of LR ordered ID consulted, appreciate recommendations Neuro check q4h West Nile serologies pending #History of HTN #History of valvular disease #s/p pacemaker [address] Muse as his quill layer Per ECHO report 05/2022: Normal LV size and function. Mild LVH. Estimated EF 55- 60%. Normal RV size and function. Estimated RVSP 73mmHg suggestive of moderate to severe pulmonary hypertension Severe calcific aortic stenosis with moderate aortic regurgitation. Mean aortic valve pressure gradient 54mmHg, vmax 4.7 m.s, FERNANDEZ 0.77 cmsqu. LA mildly dilated, RA moderately dilated Mitral annular calcification with trace mitral regurgitation. Mild to moderate Tricuspid regurgitation Suspicion for possible endocarditis as patient as GPC from 2/2 bottles as noted above Plan: Consulted patient's quill layer Dr. Muse TTE ordered #Seizure, unknown etiology? Possible febrile seizure, as patient's body temperature reached 105.9 ?F Per signout, patient had a seizure which was witnessed by [employer] PRINTER managing the patient in the ED Apparently, seizure lasted about 30 seconds Patient is not on any antiseizure medications Bedside nurse states there was no reports of seizure in the ED Plan: Seizure precautions Ativan 2 mg every 30 minutes for breakthrough seizures Will consider neurology consultation if seizures reported #Chronic venous hypertension #Chronic lower extremity ulcers #Chronic varicose veins #Chronic venous stasis Follows vascular and wound care 2x a week MRSA infections in past CT LE w/contrast shows: inflammation surrounding the left external iliac or common femoral veins without definite abscess. Diffuse edema in the subcutaneous fatty tissue lower legs Markedly thickened Achilles tendon with possible fluid collections on the left Testicular U/S shows: No testicular torsion or testicular mass. Bilateral benign testicular cysts. Benign left epididymal cysts Plan: Follow up MRSA nares Outpatient MRI left ankle without contrast follow-up #History of BPH Pending med rec Plan: Payne in - draining dark yellow urine Will consider resuming Flomax #Primary hepatocellular disease #21 mm fat-containing umbilical hernia Inflammation in the left groin Hospital Management: Lines: PIV Diet: Cardiac, renal Bowel: Senna GI prophylaxis: Not needed DVT prophylaxis: Heparin subq Dispo: IV abx for sepsis 2/ to skin wound, ID consulted Code: Full Patient seen and examined with attending Dr. Chavez and senior resident Dr. Madeleine Baker, PGY-1 Attending Provider Attestation/Addendum I reviewed labs, imaging, EKG, home medications and prior available records. Face to face evaluation was performed by me. I have personally examined the patient and discussed assessment and plan with the IM team. I reviewed the resident note and agree with the plan with exceptions as below. Acute encephalopathy Acute febrile illness Possible sepsis: Source is unclear Gram-positive bacteremia Lactic acidosis History of CHF Cardiac dysrhythmia status post pacemaker Essential hypertension No nuchal rigidity and meningitis is less likely. De-escalated antibiotics to vancomycin/ceftriaxone Follow-up blood cultures: Grew gram-positive cocci in 2 bottles. Consulted ID Repeat blood cultures in 48 hours Trend WBC Trend lactic acid: Slightly increased. Give IV hydration carefully in the setting of CHF Replete electrolytes as needed and follow-up levels Monitor platelet level Ordered echocardiogram Consult cardiology in the setting of extensive cardiac history for medical management
[2024-06-07] MEDS: ALBUTEROL/IPRATROPIUM (Duoneb) RT SOL 3 ML NEBU INH ×2 (13:54→18:13)
[2024-06-07 14:14] LABS: Base Excess -8 (-3-3); HCO3 15 mEq/L (20-26); Inspired Oxygen, FIO2 21 %; O2 Saturation 99 % (91-98); PCO2 26 mmHg (32.0-48.0); PO2 100 mmHg (83-108); pH, Arterial 7.38 (7.35-7.45)
[2024-06-07 14:18] LABS: Allen Test Not Performed; Puncture Site Left Radial
[2024-06-07 14:50] LABS: Albumin, Serum 3.2 gm/dL (3.4-4.8); Anion Gap 13 (7-16); BUN/Creatinine Ratio 11 Ratio (12-20); Blood Urea Nitrogen 21 mg/dL (9-23); Calcium 8.3 mg/dL (8.3-10.6); Calcium (Corrected) 8.9 mg/dL (8.5-10.1); Chloride 109 mMol/L (98-107); Creatinine (Component) 1.9 mg/dL (0.6-1.3); Estimated Creatinine Clearance 46.5 mL/min (>60); Glucose 98 mg/dL (74-106); Osmolality,Calculated 276 (275-295); Phosphorous 2.3 mg/dL (2.4-5.1); Potassium 4.5 mMol/L (3.4-5.1); Sodium 137 mMol/L (136-145); eGFR 37 See Note
[2024-06-07 15:00] LABS: Carbon Dioxide 14.8 mMol/L (20.0-31.0)
--- NOTE | 2024-06-07 15:32 | PC.NURSE ---
called pt has fever 99.9 requested order for fever coverage
[2024-06-07] MEDS: ACETAMINOPHEN 325 MG TABLET 650 MG PO (15:54)
[2024-06-07 16:21] LABS: Lactate (Lactic Acid) 3.7 mMol/L (0.4-2.0)
--- NOTE | 2024-06-07 16:33 | PC.NURSE ---
called dr lopez pt temp 101.1 she will order tylenol iv and apply ice packets
--- NOTE | 2024-06-07 17:26 | PC.NURSE ---
called dr lopez for med for anxiety pt is anxious has history of anxiety and is upset and teary eyed
[2024-06-07] MEDS: LORazepam 2 MG/ML VIAL 1 MG IVP (17:34)
[2024-06-07 17:58] LABS: Magnesium 2.7 mg/dL (1.6-2.6)
[2024-06-07 19:19] LABS: Reflex Lactate? Y
[2024-06-07 19:41] LABS: Lactic Acid, 3 HR 3.1 mMol/L (0.4-2.0)
[2024-06-07 22:26] LABS: Lactate (Lactic Acid) 3.1 mMol/L (0.4-2.0)
[2024-06-08] VITALS (9 sets, daily range): BP systolic 118–145; BP diastolic 60–77; PULSE 60–65; RESP 20–28; TEMP 36.4–37.1; O2SAT 95–99; BMI 45.1; BMI 45.2
[2024-06-08 01:25] LABS: Reflex Lactate? Y
[2024-06-08 02:12] LABS: Lactic Acid, 3 HR 3.6 mMol/L (0.4-2.0)
--- NOTE | 2024-06-08 03:11 | PC.NURSE ---
patient was admitted from ED, patient arrived with almeida in place with no order . I called and received an order for almeida to gravity.
[2024-06-08 06:06] LABS: Basophils % (Auto) 0 % (0-2.5); Eosinophils % (Auto) 0 % (0-10); Hematocrit 41.6 % (41.0-53.0); Hemoglobin 13.9 g/dL (13.5-16.0); Immature Granulocytes % (Auto) 1 % (0-0); Immature Granulocytes Auto 0.13 Thou/mm3 (0.00-0.00); Lymphocytes # (Auto) 0.5 Thou/mm3 (1.0-4.8); Lymphocytes % (Auto) 3 % (10-50); Mean Corpuscular HGB Conc 33.4 g/dl (31.0-37.0); Mean Corpuscular Hemoglobin 29.1 pg (25.0-35.0); Mean Corpuscular Volume 87 fL (80-100); Monocytes # (Auto) 0.8 Thou/mm3 (0.0-0.8); Monocytes % (Auto) 4 % (0-12); Neutrophils % (Auto) 92 % (37-80); Nucleated Red Blood Cell % 0 /100 WBC (0); Platelet Count 97 Thou/mm3 (140-440); RDW Standard Deviation 45.7 fL (35.1-43.9); Red Blood Count 4.77 Miln/mm3 (4.50-5.90); White Blood Count 19.4 Thou/mm3 (3.8-10.6)
[2024-06-08 06:18] LABS: INR 1.2 (0.9-1.3); Partial Thromboplastin Time 31.6 Seconds (22.0-36.0); Prothrombin Time 12.8 Seconds (9.0-12.2)
[2024-06-08 06:31] LABS: Alanine Aminotransferase 50 U/L (10-49); Albumin, Serum 3.5 gm/dL (3.4-4.8); Albumin/Globulin Ratio 1.3 (1.2-2.2); Alkaline Phosphatase 73 U/L (46-116); Anion Gap 13 (7-16); Aspartate Amino Transferase 102 U/L (0-34); BUN/Creatinine Ratio 17 Ratio (12-20); Bilirubin,Total 1.3 mg/dL (0.3-1.2); Blood Urea Nitrogen 30 mg/dL (9-23); Calcium 8.9 mg/dL (8.3-10.6); Calcium (Corrected) 9.3 mg/dL (8.5-10.1); Carbon Dioxide 20.1 mMol/L (20.0-31.0); Chloride 106 mMol/L (98-107); Creatinine (Component) 1.8 mg/dL (0.6-1.3); Globulin 2.8 gm/dL (2.3-3.5); Glucose 96 mg/dL (74-106); Magnesium 2.7 mg/dL (1.6-2.6); Osmolality,Calculated 283 (275-295); Phosphorous 2.1 mg/dL (2.4-5.1); Potassium 4.2 mMol/L (3.4-5.1); Sodium 139 mMol/L (136-145); Total Protein 6.3 gm/dL (5.7-8.2); Vancomycin,Random 10.1 mcg/mL; eGFR 40 See Note
[2024-06-08] MEDS: ALBUTEROL/IPRATROPIUM (Duoneb) RT SOL 3 ML NEBU INH ×3 (06:44→18:40)
[2024-06-08] MEDS: ONDANSETRON INJ 2 MG/ML INJ 2 ML 4 MG IV (07:50)
[2024-06-08] MEDS: ACETAMINOPHEN 325 MG TABLET 650 MG PO (07:50)
[2024-06-08] MEDS: TAMSULOSIN HCL 0.4 MG CAPSULE PO (08:41)
[2024-06-08] MEDS: SENNA TABLET 1 TAB PO (08:41)
[2024-06-08] MEDS: HEPARIN SOD INJ 5000 UNIT/ML VIAL SC ×2 (08:42→20:31)
[2024-06-08] MEDS: cefTRIAXone 2 GM in SODIUM CHLORIDE 0.9% (Popper) 50 ML IV ×2 (08:42→20:31)
[2024-06-08 09:58] LABS: Lactate (Lactic Acid) 2.6 mMol/L (0.4-2.0)
[2024-06-08] MEDS: VANCOMYCIN/WATER 1250 MG IVPB 250 ML 120 MG IV (10:30)
[2024-06-08 11:55] LABS: Strep A Rapid Negative (Negative)
--- NOTE | 2024-06-08 12:27 | PD.ADDHP ---
Addendum History & Physical Addendum Date of report being addended: 06/08/24 Narrative: I reviewed labs, imaging, EKG, home medications and prior available records. Face to face evaluation was performed by me. I have personally examined the patient and discussed assessment and plan with the IM team. I reviewed the resident note and agree with the plan with exceptions as below. Acute encephalopathy Acute febrile illness Possible sepsis: Source is unclear, possibly due to cellulitis versus lower extremity wounds Gram-positive bacteremia Lactic acidosis History of CHF Cardiac dysrhythmia status post pacemaker Essential hypertension Thrombocytopenia Continue vancomycin/ceftriaxone Follow-up blood cultures: Grew gram-positive cocci in 2 bottles, identified as Streptococcus pyogenes group A. Consulted ID. Recommended to repeat blood cultures Repeated blood cultures on 06/08 Trend WBC: Downtrending slightly Trend lactic acid: Slightly improved with IV hydration Replete electrolytes as needed and follow-up levels Monitor platelet level Ordered echocardiogram to look for vegetation. Unfortunately no BETTY service Consult cardiology in the setting of extensive cardiac history for medical management Monitor platelet level. Monitor for bleeding
[2024-06-08 12:55] LABS: Reflex Lactate? Y
[2024-06-08 13:20] LABS: Lactic Acid, 3 HR 2.3 mMol/L (0.4-2.0)
--- NOTE | 2024-06-08 14:13 | ESPR_ITS ---
<Statement entered by Jennifer Salvador MD - 06/09/24 00:48> Patient was seen and examined by me personally. I have directly supervised and reviewed documentation by the team resident and agree with its findings with any exceptions or additional findings as below. Plan of care was discussed with the attending, Dr. Chavez. Patient seen this morning appeared significantly improved clinically as compared with yesterday. He was breathing more comfortably at a rate of 20 and saturating well on 2L O2. Patient is also seeming more lucid and answering questions easier without as much latency as yesterday. There were no further fevers after yesterday evening. Patient at this time was denying complaints, including chest pain, back pain, or headache. Initial set of blood cultures resulted group A strep pyogenes in 2/2, pending final sensitivities. Source is still unknown. Repeat blood cultures are negative at 24 hours. Urine culture negative. MRSA screen is pending. Consulted with Dr. Muse, patient's die cast die maker who agrees to come see the patient. He had suggested for culture of the leg wound. Echo is ordered to evaluate for possible endocarditis. Considered CT of the spine, but patient is not having any point tenderness or much back pain, will also await further recommendations from ID tomorrow. Lactic acid has downtrended since yesterday, currently in the 2 range. Bicarb normalized. Expect slow clearance due to JEANETTE. Creatinine slightly improved to 1.8. WBC remains elevated at 19.4. Continue with IV ceftriaxone 2 g q12h and IV vancomycin. Jennifer Salvador, PGY-2 Documentation for date of: 06/08/24 Subjective Subjective Interval history: 06/08/2024: No acute overnight events to report. Patient seen and examined in hospital bed remains at current baseline with no concerning symptoms noted such as chest pain/tightness, palpitations, headaches or new dizziness. One of the initial blood cultures is positive for strep pyogenous group A, second set is still pending at this time. Patient's lactic acid has been downtrending with IV fluid replacement. Rapid strep antigen was ordered which came back negative. Infection source still remains obscure but suspicion is high for possible skin infection versus endocarditis. Pending echocardiogram to identify possible source as the patient does have history of severe aortic stenosis which increases his risk for endocarditis. Ballard criteria does state that the patient has either possible to definite signs of endocarditis as noted by positive blood cultures, fever, cardiac history and whether or not group A strep is a causal organism. Will continue monitor the patient for any acute changes. Exam Vital Signs Temp Pulse Resp BP Pulse Ox O2 Del Method O2 Flow Rate 98.6 F 65 22 H 139/75 H 98 Nasal Cannula 2 06/08/24 08:00 06/08/24 12:57 06/08/24 12:57 06/08/24 08:00 06/08/24 12:57 06/08/24 08:00 06/08/24 12:57 Narrative Exam Physical Exam: General: Awake, obese male, answers questions appropriately but slowly HEENT: Dry mucous membranes, conjunctiva clear, EOMI, PERRLA Cardiovascular: III/ systolic ejection murmur noted on left sternal border, radial pulses +2 bilat, RRR Pulmonary: On 2 L nasal cannula. Wheezing noted bilaterally but no crackles/rales or rhonchi GI: No tenderness to light or deep palpitation, no guarding, rigidity, rebound tenderness or distension : Payne catheter present, dark yellow urine noted Extremities: Chronic venous stasis, multiple ulcers located in LE including plantar foot, achilles tendon, bleeding lesion noted on right lower forearm Neuro: AAOx2, no nuchal rigidity appreciated, Kernig and Brudzinski test negative, able to move extremities x 4, no focal neurologic deficits noted Objective Labs 06/08/24 05:08 06/08/24 05:08 Labs: Laboratory Results - last 24 hr 06/07/24 06/07/24 06/07/24 14:05 14:06 16:03 WBC RBC Hgb Hct MCV MCH MCHC RDW Std Deviation Plt Count Neut % (Auto) Lymph % (Auto) Kaufman % (Auto) Eos % (Auto) Baso % (Auto) Neut # (Auto) Lymph # (Auto) Kaufman # (Auto) Eos # (Auto) Baso # (Auto) Immature Gran # (Auto) Absolute Nucleated RBC Immature Gran % Nucleated RBC % PT INR APTT Puncture Site Left Radial ABG pH 7.38 ABG pCO2 26 L ABG pO2 100 ABG HCO3 15 L ABG O2 Saturation 99 H ABG Base Excess -8 L FiO2 21 Sodium 137 Potassium 4.5 D Chloride 109 H Carbon Dioxide 14.8 L* Anion Gap 13 BUN 21 Creatinine 1.9 H Estim Creat Clear Calc 46.5 L eGFR 37 L BUN/Creatinine Ratio 11 L Glucose 98 Calculated Osmolality 276 Lactic Acid 3.7 H Calcium 8.3 Corrected Calcium 8.9 Phosphorus 2.3 L Magnesium Total Bilirubin AST ALT Alkaline Phosphatase Total Protein Albumin 3.2 L Globulin Albumin/Globulin Ratio Random Vancomycin Group A Strep Rapid 06/07/24 06/07/24 06/07/24 17:21 19:38 22:20 WBC RBC Hgb Hct MCV MCH MCHC RDW Std Deviation Plt Count Neut % (Auto) Lymph % (Auto) Kaufman % (Auto) Eos % (Auto) Baso % (Auto) Neut # (Auto) Lymph # (Auto) Kaufman # (Auto) Eos # (Auto) Baso # (Auto) Immature Gran # (Auto) Absolute Nucleated RBC Immature Gran % Nucleated RBC % PT INR APTT Puncture Site ABG pH ABG pCO2 ABG pO2 ABG HCO3 ABG O2 Saturation ABG Base Excess FiO2 Sodium Potassium Chloride Carbon Dioxide Anion Gap BUN Creatinine Estim Creat Clear Calc eGFR BUN/Creatinine Ratio Glucose Calculated Osmolality Lactic Acid 3.1 H 3.1 H Calcium Corrected Calcium Phosphorus Magnesium 2.7 H Total Bilirubin AST ALT Alkaline Phosphatase Total Protein Albumin Globulin Albumin/Globulin Ratio Random Vancomycin Group A Strep Rapid 06/08/24 06/08/24 06/08/24 02:02 05:08 09:30 WBC 19.4 H RBC 4.77 Hgb 13.9 Hct 41.6 MCV 87 MCH 29.1 MCHC 33.4 RDW Std Deviation 45.7 H Plt Count 97 L Neut % (Auto) 92 H Lymph % (Auto) 3 L Kaufman % (Auto) 4 Eos % (Auto) 0 Baso % (Auto) 0 Neut # (Auto) 18.0 H Lymph # (Auto) 0.5 L Kaufman # (Auto) 0.8 Eos # (Auto) 0.0 Baso # (Auto) 0.0 Immature Gran # (Auto) 0.13 H Absolute Nucleated RBC 0.00 Immature Gran % 1 H Nucleated RBC % 0 PT 12.8 H INR 1.2 APTT 31.6 Puncture Site ABG pH ABG pCO2 ABG pO2 ABG HCO3 ABG O2 Saturation ABG Base Excess FiO2 Sodium 139 Potassium 4.2 Chloride 106 Carbon Dioxide 20.1 Anion Gap 13 BUN 30 H Creatinine 1.8 H Estim Creat Clear Calc 49.0 L eGFR 40 L BUN/Creatinine Ratio 17 Glucose 96 Calculated Osmolality 283 Lactic Acid 3.6 H Calcium 8.9 Corrected Calcium 9.3 Phosphorus 2.1 L Magnesium 2.7 H Total Bilirubin 1.3 H AST 102 H ALT 50 H Alkaline Phosphatase 73 Total Protein 6.3 Albumin 3.5 Globulin 2.8 Albumin/Globulin Ratio 1.3 Random Vancomycin 10.1 Group A Strep Rapid Negative 06/08/24 06/08/24 09:38 13:04 WBC RBC Hgb Hct MCV MCH MCHC RDW Std Deviation Plt Count Neut % (Auto) Lymph % (Auto) Kaufman % (Auto) Eos % (Auto) Baso % (Auto) Neut # (Auto) Lymph # (Auto) Kaufman # (Auto) Eos # (Auto) Baso # (Auto) Immature Gran # (Auto) Absolute Nucleated RBC Immature Gran % Nucleated RBC % PT INR APTT Puncture Site ABG pH ABG pCO2 ABG pO2 ABG HCO3 ABG O2 Saturation ABG Base Excess FiO2 Sodium Potassium Chloride Carbon Dioxide Anion Gap BUN Creatinine Estim Creat Clear Calc eGFR BUN/Creatinine Ratio Glucose Calculated Osmolality Lactic Acid 2.6 H 2.3 H Calcium Corrected Calcium Phosphorus Magnesium Total Bilirubin AST ALT Alkaline Phosphatase Total Protein Albumin Globulin Albumin/Globulin Ratio Random Vancomycin Group A Strep Rapid ABG Interpretation ABG results: 06/06/24 06/07/24 06/07/24 21:29 08:28 14:06 ABG pH 7.52 H 7.35 D 7.38 ABG pCO2 20 L 27 L 26 L ABG pO2 63 L 81 L 100 ABG HCO3 16 L 15 L 15 L ABG O2 Saturation 95 97 99 H ABG Base Excess -4 L -9 L -8 L Quality Measures Quality Measures VTE prophylaxis (heparin) Advance care planning discussed with:: patient Assessment & Plan Assessment Current Active Medications: Generic Name Dose Route Start Last Admin Trade Name Freq PRN Reason Stop Dose Admin Acetaminophen 650 mg 06/07/24 15:31 06/08/24 07:50 Acetaminophen 325 Mg Tablet PO 07/07/24 15:30 650 mg Q6HR PRN Administration Fever >100.4 or Pain 1-3 Hydrocodone Bitart/Acetaminophen 1 tab 06/07/24 04:20 Hydrocodone/Apap 10/325 Tab PO 06/12/24 04:19 Q4H PRN PAIN SCALE 4-6 (Moderate Albuterol/Ipratropium 3 ml 06/07/24 13:35 06/08/24 12:56 Albuterol/Ipratropium (Duoneb) Rt Marzena 3 Ml Nebu INH 07/07/24 13:34 3 ml Q6HRRT ISHA Administration Heparin Sodium (Porcine) 5,000 unit 06/07/24 04:30 06/08/24 08:42 Heparin Sod Inj 5000 Unit/Ml Vial SC 06/21/24 04:29 5,000 unit Q12HR ISHA Administration Ceftriaxone Sodium 2 gm/ 50 mls @ 100 mls/hr 06/07/24 21:00 06/08/24 08:42 Sodium Chloride IV 06/14/24 20:59 100 mls/hr Q12HR ISHA Administration Vancomycin HCl 250 mls @ 120 mls/hr 06/08/24 10:00 06/08/24 10:30 Vancomycin/Water 1250 Mg Ivpb IV 06/15/24 09:59 120 mls/hr Q24H ISHA Administration Lorazepam 2 mg 06/07/24 13:29 Lorazepam 2 Mg/Ml Vial IVP 06/12/24 13:28 Q30M PRN Beakthrough seizures Ondansetron HCl 4 mg 06/07/24 04:26 06/08/24 07:50 Ondansetron Inj 2 Mg/Ml Inj 2 Ml IV 07/07/24 04:25 4 mg Q6H PRN Administration NAUSEA OR VOMITING Protocol Pharmacy Consult 1 each 06/07/24 09:00 Vancomycin Pharmacy To Dose 1 Each Each IV 07/07/24 08:59 QDAY PRN PROTOCOL Sennosides 1 tab 06/08/24 09:00 06/08/24 08:41 Senna Tablet PO 07/08/24 08:59 1 tab QDAY ISHA Administration Protocol Tamsulosin HCl 0.4 mg 06/08/24 09:00 06/08/24 08:41 Tamsulosin Hcl 0.4 Mg Capsule PO 07/08/24 08:59 0.4 mg QDAY ISHA Administration Plan 69-year-old male with past medical history of chronic venous hypertension, bilateral lower extremity ulcers, chronic varicose veins, chronic venous stasis, valvular disease, status post pacemaker (2018, Dr. Muse), and hypertension, history of seizures, chronic lower extremity edema CHF, history of CVA, BPH, obesity, who is admitted for sepsis and acute encephalopathy #Acute encephalopathy, improving #Sepsis secondary to GPC bacteremia #Lactic acidosis, improving #Bibasilar atelectasis vs. early PNA DDx: likely secondary to bacteremia vs. less likely encephalitis, abscess, e ndocarditis Encephalopathy multifactorial including metabolic and infectious Initially WBC 20, Temp reaching up to 105.9, was given multiple doses of Tylenol and has only slightly improved patient's temperature Patient does have history of MRSA Patient does also have hardware (pacemaker) and MRSA before, will need to rule out endocarditis GPC 2/2 bottles Lactate worsening qSOFA: 2 points; 3 out of 4 SIRS criteria, no tachycardia with acute sepsis- related organ dysfunction as evidence by JEANETTE IVF resuscitation CT Chest/Abd/P shows: Bibasilar atelectasis versus early pneumonia; Suspect primary hepatocellular disease; Perinephric stranding, consider urinary tract infection; Trace ascites 21 mm fat-containing umbilical hernia Inflammation in the left groin, cellulitis pattern without definite abscess. Urine cultures negative, MRSA nares negative One of the initial bottles grew group a strep, strep pyogenous pending ID and HORTENCIA [place] criteria is possible/definite with blood cultures positive for endocarditis, fever, microbiologic evidence and predisposing heart condition. Plan: Patient's die cast die maker, Dr. Muse consulted, appreciate recommendations; echo ordered Continue Rocephin 2 g IV daily and Vancomycin pharmacy to dose Duonebs q6h for wheezing Follow-up blood cultures sepciations Trending lactate ID consulted, appreciate recommendations Neuro check q4h West Nile serologies pending #History of HTN #History of valvular disease #s/p pacemaker [address] Muse as his die cast die maker Per ECHO report 05/2022: Normal LV size and function. Mild LVH. Estimated EF 55- 60%. Normal RV size and function. Estimated RVSP 73mmHg suggestive of moderate to severe pulmonary hypertension Severe calcific aortic stenosis with moderate aortic regurgitation. Mean aortic valve pressure gradient 54mmHg, vmax 4.7 m.s, FERNANDEZ 0.77 cmsqu. LA mildly dilated, RA moderately dilated Mitral annular calcification with trace mitral regurgitation. Mild to moderate Tricuspid regurgitation Suspicion for possible endocarditis as patient as GPC from 2/2 bottles as noted above Plan: Consulted patient's die cast die maker Dr. Mues TTE ordered as above #Seizure, unknown etiology? Possible febrile seizure, as patient's body temperature reached 105.9 ?F Per signout, patient had a seizure which was witnessed by DIET CONSULTANT managing the patient in the ED Apparently, seizure lasted about 30 seconds Patient is not on any antiseizure medications Bedside nurse states there was no reports of seizure in the ED Plan: Seizure precautions Ativan 2 mg every 30 minutes for breakthrough seizures Will consider neurology consultation if seizures reported #Chronic venous hypertension #Chronic lower extremity ulcers #Chronic varicose veins #Chronic venous stasis Follows vascular and wound care 2x a week MRSA infections in past CT LE w/contrast shows: inflammation surrounding the left external iliac or common femoral veins without definite abscess. Diffuse edema in the subcutaneous fatty tissue lower legs Markedly thickened Achilles tendon with possible fluid collections on the left Testicular U/S shows: No testicular torsion or testicular mass. Bilateral benign testicular cysts. Benign left epididymal cysts Plan: Outpatient MRI left ankle without contrast follow-up #History of BPH Pending med rec Plan: Payne in - draining dark yellow urine Will consider resuming Flomax #Primary hepatocellular disease #21 mm fat-containing umbilical hernia Inflammation in the left groin Hospital Management: Lines: PIV Diet: Cardiac, renal Bowel: Senna GI prophylaxis: Not needed DVT prophylaxis: Heparin subq Dispo: IV abx for sepsis 2/2 to endocarditis versus skin wound, ID and cardiology consulted Code: Full Patient seen and examined with attending Dr. Chavez and senior resident Dr. Madeleine Baker, PGY-1 Attending Provider Attestation/Addendum I reviewed labs, imaging, EKG, home medications and prior available records. Face to face evaluation was performed by me. I have personally examined the patient and discussed assessment and plan with the IM team. I reviewed the resident note and agree with the plan with exceptions as below. Please refer to my addendum note for the same date
--- NOTE | 2024-06-08 16:13 | PC.SS ---
Rounding Note: Patient receiving IV antibiotics. Echo is pending.
--- NOTE | 2024-06-08 19:27 | ESCONSULT_ITS ---
RE: JAYLEN HENDERSON : 1955 DATE OF CONSULTATION: 06/08/2024 REFERRING PHYSICIAN: Hospitalist. HISTORY OF PRESENT ILLNESS: Mr. Jaylen Henderson is a 69-year-old gentleman who is known to have a history of multiple problems of chronic congestive heart failure, history of severe aortic stenosis, and mild aortic regurgitation and the patient has been waiting for TAVR for the same, though the procedure has been delayed because of the persistent lower extremities nonhealing leg wounds. The patient also has a history of peripheral vascular disease and being followed by the vascular surgeon as well as wound care center. The patient does have a history of previous permanent pacemaker implantation first time in 2001 with change out in 2008 and again in 2018, history of chronic hypertension, history of arteriosclerotic heart disease with last coronary angiography done in 06/2023 showed mild coronary artery disease with 30% stenosis in the left anterior descending coronary artery, 50% stenosis in the first diagonal branch, and 20% stenosis in the mid circumflex coronary artery. Left ventricular systolic function was noted to be good. The patient was in his usual state of health up until 2 days before admission, the patient started having symptoms of fever and chills. The patient also started having symptoms of dizziness, generalized weakness, as well as increasing shortness of breath. Because of the persistence of these symptoms, the patient was seen in the Emergency Room and was subsequently hospitalized. Since hospitalization, the patient was reported to have positive blood cultures. Presently, the patient is resting fairly comfortably in bed and is not having any symptoms of chest pain. The patient is breathing fairly well at rest on oxygen therapy though. PHYSICAL EXAMINATION: VITAL SIGNS: The patient's blood pressure this morning is 139/75, pulse rate is 60, respirations are 20, the patient's temperature is 98.3, oximetry saturation is 95% on 2 L of oxygen by nasal cannula. HEAD AND NECK: Unremarkable. JVP is not elevated. Carotid pulsations are felt well on both sides. No carotid bruit is heard. The radiation of the heart murmur from base of the heart to both the carotids is noted. HEART: PMI is neither palpable nor visible. S1 and S2 is normal. Grade 3-4/6 ejection systolic murmur best heard at the base with radiation over to the carotids. No gallop is appreciated. LUNGS: Lungs show slightly decreased breath at the bases. No active wheezing or rales are heard. ABDOMEN: Abdomen is soft. No organomegaly. EXTREMITIES: Trace pedal edema is noted. Slow healing wounds are noted over the lower extremities both sides. LABORATORY DATA: The patient's lab work on admission showed WBC count yesterday was 19,600, hemoglobin of 12.8 with a hematocrit of 38.8. The day before yesterday on 06/06/2024, WBC count was 20,000, hemoglobin was 14.8 with hematocrit of 44.2. Today's WBC count is 19,400, hemoglobin is 13.9 with a hematocrit of 41.6. The patient's BUN on 06/06/2024 was 21, creatinine 1.7, potassium level was 4.7. The patient's BUN today is up to 30, creatinine is 1.8, potassium level is 4.2. The lactic acid level on 06/07/2024 was elevated and was 5.9. Repeat lactic acid level today is down to 2.3. DIAGNOSTIC DATA: The patient's electrocardiogram on admission showed ventricular paced rhythm. The patient's chest x-ray on 06/06/2024 showed mild heart failure. The blood cultures taken on 06/06/2024 reported to show gram-positive cocci. CLINICAL IMPRESSION: 1. Septicemia. 2. Aortic valvular heart disease with a history of severe stenosis and mild aortic regurgitation. 3. Chronic congestive heart failure. 4. Status post previous permanent pacemaker implantation. 5. Chronic hypertension. 6. Mild arteriosclerotic heart disease as per previous coronary angiography. 7. Status post previous history of cerebrovascular accident several years ago with good recovery. SUGGESTIONS: I agree with the present plan amendment with the patient. We will continue the patient on intravenous antibiotic therapy. Cardiac echo Doppler study has been ordered and will be reviewed once done. Present medications will be continued. The wound cultures from the lower extremities have been taken, though the results are still awaited. I will follow the patient with you and highly thank you very much for letting me participate in the evaluation of the patient. DT: 17:22:55 TT: 18:58:00 Ref: [id number] - TID: [id number] MTDD
[2024-06-08 21:22] LABS: Lactate (Lactic Acid) 2.9 mMol/L (0.4-2.0)
[2024-06-09] VITALS (12 sets, daily range): BP systolic 125–151; BP diastolic 73–87; PULSE 60–69; RESP 18–21; TEMP 36.2–36.6; O2SAT 94–100; BMI 45.6
[2024-06-09 00:17] LABS: Reflex Lactate? Y
[2024-06-09] MEDS: ALBUTEROL/IPRATROPIUM (Duoneb) RT SOL 3 ML NEBU INH ×3 (00:30→18:30)
[2024-06-09 01:07] LABS: Lactic Acid, 3 HR 2.3 mMol/L (0.4-2.0)
[2024-06-09 05:58] LABS: Basophils % (Auto) 0 % (0-2.5); Eosinophils % (Auto) 0 % (0-10); Hematocrit 38.2 % (41.0-53.0); Hemoglobin 12.7 g/dL (13.5-16.0); Immature Granulocytes % (Auto) 1 % (0-0); Immature Granulocytes Auto 0.11 Thou/mm3 (0.00-0.00); Lymphocytes # (Auto) 0.6 Thou/mm3 (1.0-4.8); Lymphocytes % (Auto) 4 % (10-50); Mean Corpuscular HGB Conc 33.2 g/dl (31.0-37.0); Mean Corpuscular Hemoglobin 29.1 pg (25.0-35.0); Mean Corpuscular Volume 88 fL (80-100); Monocytes % (Auto) 6 % (0-12); Neutrophils # (Auto) 13.7 Thou/mm3 (1.8-7.7); Neutrophils % (Auto) 88 % (37-80); Nucleated Red Blood Cell % 0 /100 WBC (0); Platelet Count 90 Thou/mm3 (140-440); RDW Standard Deviation 45.6 fL (35.1-43.9); Red Blood Count 4.36 Miln/mm3 (4.50-5.90); White Blood Count 15.6 Thou/mm3 (3.8-10.6)
[2024-06-09 06:21] LABS: Anion Gap 10 (7-16); Blood Urea Nitrogen 31 mg/dL (9-23); Carbon Dioxide 19.8 mMol/L (20.0-31.0); Chloride 108 mMol/L (98-107); Creatinine (Component) 1.5 mg/dL (0.6-1.3); Potassium 3.9 mMol/L (3.4-5.1); Sodium 138 mMol/L (136-145)
[2024-06-09 06:22] LABS: Alanine Aminotransferase 45 U/L (10-49); Albumin, Serum 3.2 gm/dL (3.4-4.8); Albumin/Globulin Ratio 1.1 (1.2-2.2); Alkaline Phosphatase 90 U/L (46-116); Aspartate Amino Transferase 73 U/L (0-34); BUN/Creatinine Ratio 21 Ratio (12-20); Bilirubin,Total 0.9 mg/dL (0.3-1.2); Calcium 8.8 mg/dL (8.3-10.6); Calcium (Corrected) 9.4 mg/dL (8.5-10.1); Estimated Creatinine Clearance 58.1 mL/min (>60); Globulin 2.8 gm/dL (2.3-3.5); Glucose 122 mg/dL (74-106); Magnesium 2.6 mg/dL (1.6-2.6); Osmolality,Calculated 283 (275-295); Phosphorous 2.1 mg/dL (2.4-5.1); eGFR 49 See Note
[2024-06-09] MEDS: ASPIRIN 81 MG CHEW PO (08:16)
[2024-06-09] MEDS: cefTRIAXone 2 GM in SODIUM CHLORIDE 0.9% (Popper) 50 ML IV (08:16)
[2024-06-09] MEDS: POLYETHYLENE GLYCOL 17 GM PACKET PO (08:16)
[2024-06-09] MEDS: ESCITALOPRAM OXALATE 10 MG TABLET 20 MG PO (08:16)
[2024-06-09] MEDS: amLODIPine BESYLATE 5 MG TABLET PO (08:16)
[2024-06-09] MEDS: HEPARIN SOD INJ 5000 UNIT/ML VIAL SC ×2 (08:17→20:46)
[2024-06-09] MEDS: TAMSULOSIN HCL 0.4 MG CAPSULE PO (08:17)
[2024-06-09] MEDS: SENNA TABLET 1 TAB PO (08:17)
[2024-06-09] MEDS: SOD PHOS ADDITIVE 15 MMOL in SODIUM CHLORIDE 0.9% 250 ML 250 ML 62.5 MMOL IV (09:35)
--- NOTE | 2024-06-09 11:21 | PD.IDPROG ---
Subjective Subjective Interval history: streptococcal bacteremia in pt with valve disease and a pacer. group a strep. no echo. no macarena. odd. Exam Vital Signs Temp Pulse Resp BP Pulse Ox O2 Del Method O2 Flow Rate 97.8 F 60 20 151/87 H 94 L Nasal Cannula 2 06/09/24 08:00 06/09/24 08:16 06/09/24 08:00 06/09/24 08:16 06/09/24 08:00 06/09/24 04:00 06/09/24 07:06 Narrative Exam awake alert. legs look like stasis dermatitis bilaterally as quite symmetric, but could be a source too. exam benign, alert. non ill appearing. no line or port noted. pacer ok L chest. Objective - Internal Medicine Labs 06/09/24 05:21 06/09/24 05:21 Labs: Laboratory Results - last 24 hr 06/08/24 06/08/24 06/08/24 09:30 13:04 20:43 WBC RBC Hgb Hct MCV MCH MCHC RDW Std Deviation Plt Count Neut % (Auto) Lymph % (Auto) Mccreary % (Auto) Eos % (Auto) Baso % (Auto) Neut # (Auto) Lymph # (Auto) Mccreary # (Auto) Eos # (Auto) Baso # (Auto) Immature Gran # (Auto) Absolute Nucleated RBC Immature Gran % Nucleated RBC % Sodium Potassium Chloride Carbon Dioxide Anion Gap BUN Creatinine Estim Creat Clear Calc eGFR BUN/Creatinine Ratio Glucose Calculated Osmolality Lactic Acid 2.3 H 2.9 H Calcium Corrected Calcium Phosphorus Magnesium Total Bilirubin AST ALT Alkaline Phosphatase Total Protein Albumin Globulin Albumin/Globulin Ratio Group A Strep Rapid Negative 06/09/24 06/09/24 00:55 05:21 WBC 15.6 H RBC 4.36 L Hgb 12.7 L Hct 38.2 L MCV 88 MCH 29.1 MCHC 33.2 RDW Std Deviation 45.6 H Plt Count 90 L Neut % (Auto) 88 H Lymph % (Auto) 4 L Mccreary % (Auto) 6 Eos % (Auto) 0 Baso % (Auto) 0 Neut # (Auto) 13.7 H Lymph # (Auto) 0.6 L Mccreary # (Auto) 1.0 H Eos # (Auto) 0.0 Baso # (Auto) 0.0 Immature Gran # (Auto) 0.11 H Absolute Nucleated RBC 0.00 Immature Gran % 1 H Nucleated RBC % 0 Sodium 138 Potassium 3.9 Chloride 108 H Carbon Dioxide 19.8 L Anion Gap 10 BUN 31 H Creatinine 1.5 H Estim Creat Clear Calc 58.1 L eGFR 49 L BUN/Creatinine Ratio 21 H Glucose 122 H Calculated Osmolality 283 Lactic Acid 2.3 H Calcium 8.8 Corrected Calcium 9.4 Phosphorus 2.1 L Magnesium 2.6 Total Bilirubin 0.9 AST 73 H ALT 45 Alkaline Phosphatase 90 D Total Protein 6.0 Albumin 3.2 L Globulin 2.8 Albumin/Globulin Ratio 1.1 L Group A Strep Rapid ABG Interpretation ABG results: 06/06/24 06/07/24 06/07/24 21:29 08:28 14:06 ABG pH 7.52 H 7.35 D 7.38 ABG pCO2 20 L 27 L 26 L ABG pO2 63 L 81 L 100 ABG HCO3 16 L 15 L 15 L ABG O2 Saturation 95 97 99 H ABG Base Excess -4 L -9 L -8 L Assessment & Plan A&P Narrative bacteremia with group A strep, jujuepethan ok, but need more data before treating for endocarditis htn, bph, ckd all noted. suggest echo and then macarena if echo neg or non diagnostic will likely check in again on Friday looks like repeat bc neg so far from 06/07 pm. (it is 06/09 today) Time Spent With Patient Time: Total time spent is greater than 50% in coordination of care (as documented) at patient's floor/unit and/or counseling patient:
--- NOTE | 2024-06-09 12:03 | ESPR_ITS ---
<Statement entered by Jennifer Salvador MD - 06/10/24 04:44> Patient was seen and examined by me personally. I have directly supervised and reviewed documentation by the team resident and agree with its findings with any exceptions or additional findings as below. Plan of care was discussed with the attending, Dr. Art. Patient was seen this morning appearing clinically improved. He is breathing comfortably on room air and denies chest pain, shortness of breath, or further fevers. His mentation has improved every day. WBC and lactic acid is noted to be downtrending. Creatinine is improved down to 1.5. TTE showed 55-60% EF and stage 2 diastolic dysfunction, severe calcific aortic stenosis but no evidence of endocarditis. Initial set of blood cultures showing beta hemolytic streptococcus A, pansensitive, antibiotics kept to IV ceftriaxone 2 g daily. Second set of blood cultures negative 24 hours thus far. ID recommended BETTY, therefore Dr. Desai was consulted. Discussed with Dr. Muse patient's health policy nurse who agrees to have BETTY done. Patient will be NPO after midnight and tentative plan is for BETTY tomorrow. Jennifer Salvador, PGY-2 Documentation for date of: 06/09/24 Subjective Subjective Interval history: 06/09/2024: No acute overnight events to report. Patient seen and examined in hospital bed is on room air and denies having any concerning symptoms at this time such as chest pain, shortness of breath, palpitations or abdominal pain. Patient's echocardiogram results show no signs of endocarditis but infectious disease recommends obtaining BETTY at this time. Based off blood cultures and speciation from the first set, infectious disease is concerned for possible endocarditis, especially since the patient has valvular heart disease and pacemaker. Discontinued patient's IV vancomycin and will continue Rocephin as approved by ID. Additionally, we started the patient on spironolactone home dose as he does have some peripheral edema noted on examination. Will continue to monitor for any acute changes. Exam Vital Signs Temp Pulse Resp BP Pulse Ox O2 Del Method O2 Flow Rate 97.8 F 60 20 151/87 H 94 L Nasal Cannula 2 06/09/24 08:00 06/09/24 08:16 06/09/24 08:00 06/09/24 08:16 06/09/24 08:00 06/09/24 04:00 06/09/24 07:06 Narrative Exam Physical Exam: General: Awake, obese male, answers questions appropriately, appears stated age HEENT: Moist mucous membranes, conjunctiva clear, EOMI, PERRLA Cardiovascular: III/ systolic ejection murmur noted on left sternal border, radial pulses +2 bilat, RRR Pulmonary: On room air. No crackles/rales, wheezing or rhonchi GI: No tenderness to light or deep palpitation, no guarding, rigidity, rebound tenderness or distension : Payne catheter present, yellow urine noted Extremities: Chronic venous stasis, multiple ulcers located in LE including plantar foot, achilles tendon Neuro: AAOx2, no nuchal rigidity appreciated, Kernig and Brudzinski test negative, able to move extremities x 4, no focal neurologic deficits noted Objective Labs 06/10/24 06:44 06/10/24 05:40 Labs: Laboratory Results - last 24 hr 06/08/24 06/08/24 06/09/24 13:04 20:43 00:55 WBC RBC Hgb Hct MCV MCH MCHC RDW Std Deviation Plt Count Neut % (Auto) Lymph % (Auto) [place] % (Auto) Eos % (Auto) Baso % (Auto) Neut # (Auto) Lymph # (Auto) [place] # (Auto) Eos # (Auto) Baso # (Auto) Immature Gran # (Auto) Absolute Nucleated RBC Immature Gran % Nucleated RBC % Sodium Potassium Chloride Carbon Dioxide Anion Gap BUN Creatinine Estim Creat Clear Calc eGFR BUN/Creatinine Ratio Glucose Calculated Osmolality Lactic Acid 2.3 H 2.9 H 2.3 H Calcium Corrected Calcium Phosphorus Magnesium Total Bilirubin AST ALT Alkaline Phosphatase Total Protein Albumin Globulin Albumin/Globulin Ratio 06/09/24 05:21 WBC 15.6 H RBC 4.36 L Hgb 12.7 L Hct 38.2 L MCV 88 MCH 29.1 MCHC 33.2 RDW Std Deviation 45.6 H Plt Count 90 L Neut % (Auto) 88 H Lymph % (Auto) 4 L [place] % (Auto) 6 Eos % (Auto) 0 Baso % (Auto) 0 Neut # (Auto) 13.7 H Lymph # (Auto) 0.6 L [place] # (Auto) 1.0 H Eos # (Auto) 0.0 Baso # (Auto) 0.0 Immature Gran # (Auto) 0.11 H Absolute Nucleated RBC 0.00 Immature Gran % 1 H Nucleated RBC % 0 Sodium 138 Potassium 3.9 Chloride 108 H Carbon Dioxide 19.8 L Anion Gap 10 BUN 31 H Creatinine 1.5 H Estim Creat Clear Calc 58.1 L eGFR 49 L BUN/Creatinine Ratio 21 H Glucose 122 H Calculated Osmolality 283 Lactic Acid Calcium 8.8 Corrected Calcium 9.4 Phosphorus 2.1 L Magnesium 2.6 Total Bilirubin 0.9 AST 73 H ALT 45 Alkaline Phosphatase 90 D Total Protein 6.0 Albumin 3.2 L Globulin 2.8 Albumin/Globulin Ratio 1.1 L ABG Interpretation ABG results: 06/06/24 06/07/24 06/07/24 21:29 08:28 14:06 ABG pH 7.52 H 7.35 D 7.38 ABG pCO2 20 L 27 L 26 L ABG pO2 63 L 81 L 100 ABG HCO3 16 L 15 L 15 L ABG O2 Saturation 95 97 99 H ABG Base Excess -4 L -9 L -8 L Quality Measures Quality Measures VTE prophylaxis (heparin) Advance care planning discussed with:: patient Assessment & Plan Assessment Current Active Medications: Generic Name Dose Route Start Last Admin Trade Name Freq PRN Reason Stop Dose Admin Acetaminophen 650 mg 06/07/24 15:31 06/08/24 07:50 Acetaminophen 325 Mg Tablet PO 07/07/24 15:30 650 mg Q6HR PRN Administration Fever >100.4 or Pain 1-3 Hydrocodone Bitart/Acetaminophen 1 tab 06/07/24 04:20 Hydrocodone/Apap 10/325 Tab PO 06/12/24 04:19 Q4H PRN PAIN SCALE 4-6 (Moderate Albuterol/Ipratropium 3 ml 06/07/24 13:35 06/09/24 07:06 Albuterol/Ipratropium (Duoneb) Rt Marzena 3 Ml Nebu INH 07/07/24 13:34 3 ml Q6HRRT ISHA Administration Amlodipine Besylate 5 mg 06/09/24 09:00 06/09/24 08:16 Amlodipine Besylate 5 Mg Tablet PO 07/09/24 08:59 5 mg QDAY ISHA Administration Aspirin 81 mg 06/09/24 09:00 06/09/24 08:16 Aspirin 81 Mg Chew PO 07/09/24 08:59 81 mg QDAY ISHA Administration Escitalopram Oxalate 20 mg 06/09/24 09:00 06/09/24 08:16 Escitalopram Oxalate 10 Mg Tablet PO 07/09/24 08:59 20 mg QDAY ISHA Administration Heparin Sodium (Porcine) 5,000 unit 06/07/24 04:30 06/09/24 08:17 Heparin Sod Inj 5000 Unit/Ml Vial SC 06/21/24 04:29 5,000 unit Q12HR ISHA Administration Ceftriaxone Sodium/Dextrose 2 gm in 50 mls @ 100 mls/hr 06/10/24 09:00 Rocephin/D5w 2gm IV 06/17/24 08:59 QDAY ISHA Lorazepam 2 mg 06/07/24 13:29 Lorazepam 2 Mg/Ml Vial IVP 06/12/24 13:28 Q30M PRN Beakthrough seizures Ondansetron HCl 4 mg 06/07/24 04:26 06/08/24 07:50 Ondansetron Inj 2 Mg/Ml Inj 2 Ml IV 07/07/24 04:25 4 mg Q6H PRN Administration NAUSEA OR VOMITING Protocol Sennosides 1 tab 06/08/24 09:00 06/09/24 08:17 Senna Tablet PO 07/08/24 08:59 1 tab QDAY ISHA Administration Protocol Spironolactone 25 mg 06/09/24 21:00 Spironolactone 25 Mg Tablet PO 07/09/24 20:59 BID ISHA Tamsulosin HCl 0.4 mg 06/08/24 09:00 06/09/24 08:17 Tamsulosin Hcl 0.4 Mg Capsule PO 07/08/24 08:59 0.4 mg QDAY ISHA Administration Plan 69-year-old male with past medical history of chronic venous hypertension, bilateral lower extremity ulcers, chronic varicose veins, chronic venous stasis, valvular disease, status post pacemaker (2018, Dr. Muse), and hypertension, history of seizures, chronic lower extremity edema CHF, history of CVA, BPH, obesity, who is admitted for sepsis and acute encephalopathy #Acute encephalopathy, improving #Sepsis secondary to GPC bacteremia #Lactic acidosis, improving #Bibasilar atelectasis vs. early PNA DDx: likely secondary to bacteremia vs. less likely encephalitis, abscess, e ndocarditis? Encephalopathy multifactorial including metabolic and infectious Initially WBC 20, Temp reaching up to 105.9, was given multiple doses of Tylenol and has only slightly improved patient's temperature Patient does have history of MRSA Patient does also have hardware (pacemaker) and MRSA before, will need to rule out endocarditis GPC 2/2 bottles Lactate worsening qSOFA: 2 points; 3 out of 4 SIRS criteria, no tachycardia with acute sepsis- related organ dysfunction as evidence by JEANETTE IVF resuscitation CT Chest/Abd/P shows: Bibasilar atelectasis versus early pneumonia; Suspect primary hepatocellular disease; Perinephric stranding, consider urinary tract infection; Trace ascites 21 mm fat-containing umbilical hernia Inflammation in the left groin, cellulitis pattern without definite abscess. Urine cultures negative, MRSA nares negative One of the initial bottles grew group a strep, strep pyogenous pending ID and HORTENCIA [place] criteria is possible/definite with blood cultures positive for endocarditis, fever, microbiologic evidence and predisposing heart condition. 2nd set of blood cultures shows no growth in 24 hours TTE shows no signs of endocarditis; Patient's health policy nurse, Dr. Muse consulted, appreciate recommendations Plan: ID consulted, appreciate recommendations ID recommends obtaining an BETTY Dr. Desai, cardiology, consulted for BETTY Continue Rocephin 2 g IV daily Duonebs q6h for wheezing Follow-up blood cultures sepciations Neuro check q4h West Nile serologies pending #History of HTN #History of valvular disease #s/p pacemaker [address] Muse as his health policy nurse Per ECHO report 05/2022: Normal LV size and function. Mild LVH. Estimated EF 55- 60%. Normal RV size and function. Estimated RVSP 73mmHg suggestive of moderate to severe pulmonary hypertension Severe calcific aortic stenosis with moderate aortic regurgitation. Mean aortic valve pressure gradient 54mmHg, vmax 4.7 m.s, FERNANDEZ 0.77 cmsqu. LA mildly dilated, RA moderately dilated Mitral annular calcification with trace mitral regurgitation. Mild to moderate Tricuspid regurgitation Suspicion for possible endocarditis as patient as GPC from 2/2 bottles as noted above Plan: Consulted patient's health policy nurse Dr. Muse Restarted spironolactone 25m po BID #Seizure, unknown etiology? Possible febrile seizure, as patient's body temperature reached 105.9 ?F Per signout, patient had a seizure which was witnessed by CUSTOMER SERVICE SECURITY OFFICER managing the patient in the ED Apparently, seizure lasted about 30 seconds Patient is not on any antiseizure medications Bedside nurse states there was no reports of seizure in the ED Plan: Seizure precautions Ativan 2 mg every 30 minutes for breakthrough seizures Will consider neurology consultation if seizures reported #Chronic venous hypertension #Chronic lower extremity ulcers #Chronic varicose veins #Chronic venous stasis Follows vascular and wound care 2x a week MRSA infections in past CT LE w/contrast shows: inflammation surrounding the left external iliac or common femoral veins without definite abscess. Diffuse edema in the subcutaneous fatty tissue lower legs Markedly thickened Achilles tendon with possible fluid collections on the left Testicular U/S shows: No testicular torsion or testicular mass. Bilateral benign testicular cysts. Benign left epididymal cysts Plan: Outpatient MRI left ankle without contrast follow-up #History of BPH Pending med rec Plan: Payne in - draining yellow urine Will consider resuming Flomax #Primary hepatocellular disease #21 mm fat-containing umbilical hernia Inflammation in the left groin Hospital Management: Lines: PIV Diet: Cardiac, renal Bowel: Senna GI prophylaxis: Not needed DVT prophylaxis: Heparin subq Dispo: IV abx for sepsis 2/2 to endocarditis versus skin wound, ID and cardiology consulted Code: Full Patient seen and examined with attending Dr. Art and senior resident Dr. Madeleine Baker, PGY-1 Attending Provider Attestation/Addendum Abdiel, Ara Art, DO, attest that I was physically present for the carson portions of the service and evaluated the patient with the resident and I reviewed and discussed the case with the resident and agree with the resident's findings and plans of care as documented above Patient seen and evaluated this AM. Mental status is reportedly much improved in comparison to presentation. Patient has dressing over b/l distal LE and some dry chronic skin changes over his proximal calves. Patient states that he follows up with vascular and had once been at risk for amputation due to condition of wounds. However, it has much improved with close follow up with wound care clinic. Patient noted to have scattered ecchymosis of b/l UE. He denies any recent falls. Bcx positive for Group A Strep. ID following, switched to rocephin 2g daily dosing. Echocardiogram was done today and does not show any valvular vegetations. Will need BETTY. Cardiology consulted. Patient is agreeable to BETTY
--- NOTE | 2024-06-09 12:30 | PC.SS ---
INSURANCE ADMINISTRATIVE ASSISTANT conducted bedside contact with the patient conduct initial assessment and to discuss discharge planning.? Patient confirmed demographic information.? Patient resides at home with spouse, Freda Swift .? Patient utilizes a walker to assist with ambulation.? Patient utilizes home oxygen.? Patient describes ability to complete ADL?s independently.? Patient identified spouse, Freda Swift; as surrogate medical decision maker.? Patient?s PCP is Dr. Jones.? Dr. Muse is the patient?s journeyman wireman.? [facility] services.? skin specialist is Dr. Sanchez.? Patient does not participate with dialysis.? Patient utilizes [facility] for medication services.? Patient is aligned with [facility], [facility].? Patient receives nursing and wound care from [facility].? Patient to be re-aligned with [place] home [facility] upon discharge.? Plan is for the patient to return home at the time of discharge.? Family will provide transportation on behalf of the patient. ?No discharge needs identified by the patient.? No further intervention required at this time, child protective services social worker will be available to address any further concerns.? Next of Kin: Freda Swift D/C Plan: Home
--- NOTE | 2024-06-09 13:12 | ESCONSULT_ITS ---
RE: ROSLYN HENDERSON : 1955 DATE OF CONSULTATION: 06/09/2024 REFERRING PHYSICIAN: Dr. Chavez. REASON FOR CONSULTATION: Bacteremia with group A Strep in a 69-year-old. HISTORY OF PRESENT ILLNESS: This is an unfortunate 69-year-old man who may have a heart valve infection although we do not know that. There has been no effort to do an echocardiogram noted. There is no echocardiogram on file. Please be sure there is one before we sentence him to a prolonged course of treatment. He is on meningeal doses of Rocephin perhaps by others, but he has no overt meningitis. For endocarditis, 2 g once a day should be fine. For group A Strep bacteremia, generally Rocephin will work quite well. Ancef is also an appropriate agent if we are going to give him more than once a day. PAST HISTORY: Notable for hypertension, BPH, and chronic kidney disease, which dates back to 12/2023. SURGICAL HISTORY: Limited to information on file ALLERGIES: LATEX, CAUSING RASH. IMMUNIZATIONS: Unavailable. FAMILY HISTORY: Limited information on file. SOCIAL HISTORY: Limited information on file. PHYSICAL EXAMINATION: GENERAL: He is a pleasant 69-year-old man who seems his stated age. HEENT: Benign. HEART: Benign. LUNGS: Benign. ABDOMEN: Benign. He has bilateral stasis changes, which may be a source for his bacteremia. It is just hard to know. Bacteremia also can be a contamination, so be aware of that. Group A Strep is not the most common contaminant, but blood cultures were drawn exactly 5 minutes apart, which does raise concern for contamination. It appeared to have been done late evening on 06/06. He did have MRSA in his fifth toe wound about 6 years ago in 2018, but that seems to be not an issue at the moment and in 2022, he had a Pseudomonas aeruginosa from a wound culture in the left leg. We do not need to target those at this time. Those are usually swab cultures that are not advised. They are often done by the wound care team, but that does not mean that they are the right thing to do. With his chronic kidney disease, procalcitonin is not recommended, so we are going to have to just go ahead and treat him for some duration, but we need an echocardiogram before embarking on any sort of other intervention. I am going to adjust his Rocephin to 2 g a day. I see his blood cultures appear to be negative so far from the though, this is less than 48 hours. It will be 48 hours this afternoon. I will check on him again on Friday. Please get a transthoracic echo and if that is negative or equivocal, then get a transesophageal echocardiogram. DT: 11:36:42 TT: 12:00:00 Ref: [id number] - TID: [id number] MTDD
--- NOTE | 2024-06-09 14:07 | ESCONSULT_ITS ---
<Statement entered by Giovany Vickers MD - 06/11/24 09:08> pt seen with resident. all findings confirmed. see additional notes for details HPI Data of Consult Requesting Physician: Ara Art DO Admitting Provider: Sal Stack MD Attending Provider: Ara Art DO Primary Care Provider: Physician No Primary/Family Consult Narrative History of present illness: 69-year-old male with PMH of hypertension, hyperlipidemia, chronic venous stasis, CHF, severe aortic stenosis who presented due to acute encephalopathy. On arrival aptient was tachypneic, febrile and had an elevated white count. subsequently he was found to have strep A bacteremia, echo ordered, he has been receiving rocephin 2 gr daily and vancomycin, infectious disease consulted for further management. cc:: cc: Ara Art DO Exam Vital Signs Temp Pulse Resp BP Pulse Ox O2 Del Method O2 Flow Rate 97.2 F 60 21 H 125/73 95 Room Air 2 06/09/24 12:00 06/09/24 12:00 06/09/24 12:00 06/09/24 12:00 06/09/24 12:00 06/09/24 12:00 06/09/24 07:06 Results Labs 06/09/24 05:21 06/09/24 05:21 Labs: Short CBC 06/09/24 Range/Units 05:21 WBC 15.6 H (3.8-10.6) Thou/mm3 Hgb 12.7 L (13.5-16.0) g/dL Hct 38.2 L (41.0-53.0) % Plt Count 90 L (140-440) Thou/mm3 BMP 06/09/24 05:21 Sodium 138 Potassium 3.9 Chloride 108 H Carbon Dioxide 19.8 L BUN 31 H Creatinine 1.5 H Glucose 122 H Calcium 8.8 Liver Function 06/09/24 Range/Units 05:21 Total Bilirubin 0.9 (0.3-1.2) mg/dL AST 73 H (0-34) U/L ALT 45 (10-49) U/L Alkaline Phosphatase 90 D (46-116) U/L Albumin 3.2 L (3.4-4.8) gm/dL ABG Interpretation ABG results: 06/06/24 06/07/24 06/07/24 21:29 08:28 14:06 ABG pH 7.52 H 7.35 D 7.38 ABG pCO2 20 L 27 L 26 L ABG pO2 63 L 81 L 100 ABG HCO3 16 L 15 L 15 L ABG O2 Saturation 95 97 99 H ABG Base Excess -4 L -9 L -8 L Quality Measures Quality Measures VTE prophylaxis (heparin) Advance care planning discussed with:: patient Medications Home Medications and Allergies Home Medications ?Medication ?Instructions ?Recorded ?Confirmed ?Type nitroglycerin 0.4 mg sublingual 0.4 mg SL PRN PRN CHES T TIGHTNESS 12/20/16 06/07/24 History tablet (Nitrostat) #0 tabs amlodipine 5 mg tablet 5 mg PO QDAY 06/04/22 History aspirin 81 mg chewable tablet 81 mg PO QDAY 06/04/22 0 06/07/24 History clonidine HCl 0.2 mg tablet 0.2 mg PO BID 06/04/22 History escitalopram oxalate 20 mg tablet 20 mg PO QDAY 06/07/24 History metoprolol tartrate 50 mg tablet 50 mg PO BID 06/04/22 06/07/24 History tamsulosin 0.4 mg capsule (Flomax) 0.4 mg PO QDAY 05/2206/07/24 History spironolactone 25 mg tablet 25 mg PO BID 07/03/2305/22 History hydrocodone 10 mg-acetaminophen 1 tab PO BID PRN pain 06/07/24 06/07/24 History 325 mg tablet Allergies Allergy/AdvReac Type Severity Reaction Status Date / Time latex Allergy Rash Verified 11/04/23 21:49 Visit Medications Acetaminophen (Acetaminophen 325 Mg Tablet) 650 mg PO Q6HR PRN PRN Reason: Fever >100.4 or Pain 1-3 Stop: 07/07/24 15:30 Last Admin: 06/08/24 07:50 Dose: 650 mg Hydrocodone Bitart/Acetaminophen (Hydrocodone/Apap 10/325 Tab) 1 tab PO Q4H PRN PRN Reason: PAIN SCALE 4-6 (Moderate Stop: 06/12/24 04:19 Albuterol/Ipratropium (Albuterol/Ipratropium (Duoneb) Rt Marzena 3 Ml Nebu) 3 ml INH Q6HRRT [facility] Stop: 07/07/24 13:34 Last Admin: 06/09/24 07:06 Dose: 3 ml Amlodipine Besylate (Amlodipine Besylate 5 Mg Tablet) 5 mg PO QDAY [facility]HA Stop: 07/09/24 08:59 Last Admin: 06/09/24 08:16 Dose: 5 mg Aspirin (Aspirin 81 Mg Chew) 81 mg PO QDAY ISHA Stop: 07/09/24 08:59 Last Admin: 06/09/24 08:16 Dose: 81 mg Escitalopram Oxalate (Escitalopram Oxalate 10 Mg Tablet) 20 mg PO QDAY ISHA Stop: 07/09/24 08:59 Last Admin: 06/09/24 08:16 Dose: 20 mg Heparin Sodium (Porcine) (Heparin Sod Inj 5000 Unit/Ml Vial) 5,000 unit SC Q12HR [facility]HA Stop: 06/21/24 04:29 Last Admin: 06/09/24 08:17 Dose: 5,000 unit Ceftriaxone Sodium/Dextrose (Rocephin/D5w 2gm) 2 gm in 50 mls @ 100 mls/hr IV QDAY ISHA Stop: 06/17/24 08:59 Lorazepam (Lorazepam 2 Mg/Ml Vial) 2 mg IVP Q30M PRN PRN Reason: Beakthrough seizures Stop: 06/12/24 13:28 Ondansetron HCl (Ondansetron Inj 2 Mg/Ml Inj 2 Ml) 4 mg IV Q6H PRN; Protocol PRN Reason: NAUSEA OR VOMITING Stop: 07/07/24 04:25 Last Admin: 06/08/24 07:50 Dose: 4 mg Sennosides (Senna Tablet) 1 tab PO QDAY [facility]; Protocol Stop: 07/08/24 08:59 Last Admin: 06/09/24 08:17 Dose: 1 tab Spironolactone (Spironolactone 25 Mg Tablet) 25 mg PO BID [facility] Stop: 07/09/24 20:59 Tamsulosin HCl (Tamsulosin Hcl 0.4 Mg Capsule) 0.4 mg PO QDAY ISHA Stop: 07/08/24 08:59 Last Admin: 06/09/24 08:17 Dose: 0.4 mg Discontinued Medications Acetaminophen (Acetaminophen Supp 650 Mg Supp) 650 mg IN X1 ONE Stop: 06/06/24 20:07 Last Admin: 06/06/24 20:41 Dose: 650 mg Acetaminophen (Acetaminophen Supp 650 Mg Supp) 650 mg IN X1 ONE Stop: 06/06/24 21:39 Last Admin: 06/06/24 22:40 Dose: 650 mg Sodium Chloride (Ns) 1,000 mls @ 999 mls/hr IV .Q1H1M ONE Stop: 06/06/24 21:13 Last Infusion: 06/06/24 22:50 Dose: Infused Sodium Chloride (Ns) 1,000 mls @ 999 mls/hr IV .Q1H1M ONE Stop: 06/06/24 21:13 Last Infusion: 06/07/24 01:35 Dose: Infused Piperacillin/Tazobactam/Dextrose (Zosyn) 3.375 gm in 50 mls @ 100 mls/hr IV X1 ONE Stop: 06/06/24 21:46 Last Infusion: 06/06/24 23:06 Dose: Infused Vancomycin HCl 1,000 mg/ (Sodium Chloride) 250 mls @ 150 mls/hr IV X1 ONE Stop: 06/07/24 00:35 Last Infusion: 06/07/24 01:49 Dose: Infused Sodium Chloride (Ns) 1,000 mls @ 999 mls/hr IV .Q1H1M ONE Stop: 06/07/24 00:05 Last Infusion: 06/07/24 02:34 Dose: Infused Sodium Chloride (Ns) 1,000 mls @ 999 mls/hr IV .Q1H1M ONE Stop: 06/07/24 03:01 Last Infusion: 06/07/24 04:00 Dose: Infused Acetaminophen (Ofirmev Inj) 1,000 mg in 100 mls @ 250 mls/hr IV X1 ONE Stop: 06/07/24 02:24 Last Infusion: 06/07/24 03:15 Dose: Infused Sodium Chloride (Ns) 1,000 mls @ 999 mls/hr IV .Q1H1M ONE Stop: 06/07/24 03:06 Last Infusion: 06/07/24 05:35 Dose: Infused Ampicillin Sodium 2,000 mg/ (Sodium Chloride) 100 mls @ 100 mls/hr IV Q6HR ISHA; Protocol Stop: 06/14/24 11:59 Last Infusion: 06/07/24 15:31 Dose: Infused Ceftriaxone Sodium 2 gm/ (Sodium Chloride) 50 mls @ 100 mls/hr IV Q12HR [facility] Stop: 06/14/24 20:59 Last Admin: 06/09/24 08:16 Dose: 100 mls/hr Acyclovir Sodium 684 mg/ (Sodium Chloride) 113.68 mls @ 94.755 mls/hr IV Q12HR [facility]; Protocol Stop: 06/14/24 20:59 Ceftriaxone Sodium 2 gm/ (Sodium Chloride) 50 mls @ 100 mls/hr IV X1 ONE Stop: 06/07/24 03:29 Last Infusion: 06/07/24 05:05 Dose: Infused Ampicillin Sodium 2,000 mg/ (Sodium Chloride) 100 mls @ 100 mls/hr IV Q4HR ISHA Stop: 06/07/24 06:59 Last Infusion: 06/07/24 08:07 Dose: Infused Acyclovir Sodium 684 mg/ (Sodium Chloride) 113.68 mls @ 94.755 mls/hr IV X1 ONE Stop: 06/07/24 04:11 Last Infusion: 06/07/24 06:44 Dose: Infused Magnesium Sulfate (Magnesium Sulfate Ivpb) 4 gm in 50 mls @ 12.5 mls/hr IV X1 ONE Stop: 06/07/24 10:59 Last Infusion: 06/07/24 11:59 Dose: Infused Magnesium Sulfate (Magnesium Sulfate Ivpb) 4 gm in 50 mls @ 12.5 mls/hr IV X1 ONE Stop: 06/07/24 14:59 Last Infusion: 06/07/24 15:58 Dose: Infused Vancomycin/Sodium Chloride (Vancomycin/Ns 1 Gm Ivpb) 200 mls @ 120 mls/hr IV X1 ONE Stop: 06/07/24 11:09 Last Infusion: 06/07/24 12:01 Dose: Infused Lactated Ringer's (Lactated Ringers) 1,000 mls @ 999 mls/hr IV .Q1H1M ONE Stop: 06/07/24 13:06 Last Infusion: 06/07/24 15:11 Dose: Infused Acetaminophen (Ofirmev Inj) 1,000 mg in 100 mls @ 250 mls/hr IV X1 ONE Stop: 06/07/24 16:57 Last Infusion: 06/07/24 17:14 Dose: Infused Vancomycin HCl/Dextrose (Vancomycin/D5w 1,250 Mg Ivpb) 250 mls @ 120 mls/hr IV Q24H [facility] Stop: 06/15/24 09:59 Vancomycin HCl (Vancomycin/Water 1250 Mg Ivpb) 250 mls @ 120 mls/hr IV Q24H [facility] Stop: 06/15/24 09:59 Last Infusion: 06/08/24 20:32 Dose: Infused Sodium Phosphate 15 mmol/ (Sodium Chloride) 255 mls @ 62.5 mls/hr IV X1 ONE Stop: 06/09/24 11:29 Last Admin: 06/09/24 09:35 Dose: 62.5 mls/hr Lorazepam (Lorazepam 2 Mg/Ml Vial) 1 mg IVP X1 ONE Stop: 06/07/24 17:26 Last Admin: 06/07/24 17:34 Dose: 1 mg Pharmacy Consult (Vancomycin Pharmacy To Dose 1 Each Each) 1 each IV QDAY PRN PRN Reason: PROTOCOL Stop: 07/07/24 08:59 Polyethylene Glycol (Polyethylene Glycol 17 Gm Packet) 17 gm PO X1 ONE Stop: 06/09/24 07:29 Last Admin: 06/09/24 08:16 Dose: 17 gm Sodium Bicarbonate (Sodium Bicarb Inj 8.4% 1 Meq/Ml 50 Ml Vial) 50 meq IV X1 ONE Stop: 06/07/24 12:08 Last Admin: 06/07/24 12:23 Dose: 50 meq Assessment & Plan Plan 69-year-old male with PMH of hypertension, hyperlipidemia, chronic venous stasis, CHF, severe aortic stenosis who presented due to acute encephalopathy. On arrival aptient was tachypneic, febrile and had an elevated white count. subsequently he was found to have strep A bacteremia, echo ordered, he has been receiving rocephin 2 gr daily and vancomycin, infectious disease consulted for further management. #Strep A bacteremia -BC grwoing step A -Follow up echo -Recommend dc vanco -Continue Rocephin 2 gr day Patient's care discussed with attending physician, Dr Rancho Lira MD PGY3
--- NOTE | 2024-06-09 14:15 | ECHO_ITS ---
Transthoracic Echo Report Ht (in): 67 Wt (lb): 290 Exam Location: Echo Lab Status: Inpatient Local [employer] Driver: KVNG Grant^^^^ Indications: Procedure Performed: BP: 142 / 77 HR: 98 Technical Quality: Technically difficult study MEASUREMENTS (Male / Female) Normal Values 2D ECHO LV Diastolic Diameter PLAX 5.3 cm 4.2 - 5.9 / 3.9 - 5.3 cm LV Systolic Diameter PLAX 4.1 cm IVS Diastolic Thickness 1.2 cm 0.6 - 1.0 / 0.6 - 0.9 cm LVPW Diastolic Thickness 1.0 cm 0.6 - 1.0 / 0.6 - 0.9 cm LV Relative Wall Thickness 0.4 LVOT Diameter 1.7 cm Aortic Root Diameter 2.8 cm LA Systolic Diameter LX 4.1 cm 3.0 - 4.0 / 2.7 - 3.8 cm Ascending Aorta Diameter 3.1 cm DOPPLER AV Peak Velocity 465.3 cm/s AV Peak Gradient 86.6 mmHg AV Mean Gradient 58.0 mmHg AV Velocity Time Integral 108.5 cm LVOT Peak Velocity 59.9 cm/s LVOT Peak Gradient 1.4 mmHg LVOT Velocity Time Integral 14.3 cm LVOT Cardiac Index 1240.6 cm?/min?m? AV Area Cont Eq vti 0.3 cm? AV Area Cont Eq pk 0.3 cm? MV Area PHT 5.4 cm? Mitral E Point Velocity 87.7 cm/s Mitral A Point Velocity 42.8 cm/s Mitral E to A Ratio 2.0 TR Peak Velocity 310.0 cm/s TR Peak Gradient 38.4 mmHg PV Peak Velocity 135.0 cm/s PV Peak Gradient 7.3 mmHg RVOT Peak Velocity 42.1 cm/s FINDINGS Left Ventricle There is mild concentric left ventricular hypertrophy. There is grade II diastolic dysfunction of the left ventricle (pseudonormal filling pattern). The left ventricular ejection fraction is normal, estimated at 55-60%. Right Ventricle The right ventricle is normal in size and systolic function. The estimated right ventricular systolic pressure, 39 mmHg. Left Atrium The left atrial cavity size is mildly increased. Right Atrium The right atrium is normal by two-dimensional imaging, color flow and Doppler imaging with no structural abnormalities, no thrombus formation present. Atrial Septum The interatrial septum appears normal with no evidence of a shunt. Aorta The aorta is normal by two-dimensional, color flow and Doppler interrogation. Mitral Valve Mild mitral regurgitation. Mild thickening of the mitral valve leaflets. Mild mitral annular calcification. Aortic Valve Severe aortic valve stenosis with peak gradient of 86.6mm & mean gradient 58 mmHg, FERNANDEZ 0.3 cm?. Tricuspid Valve There is mild tricuspid valve regurgitation. Pulmonic Valve The pulmonic valve is not well visualized. There is no significant pulmonic valve regurgitation. Vessels The pulmonary artery appears normal. The inferior vena cava pulmonary and hepatic veins appear normal. Pericardium The pericardium is normal by two-dimensional imaging. There is no significant pericardial effusion. CONCLUSIONS indication: Hx of Severe Mild LVH with EF 55-60%. Diastolic Dysfunction II present. RV appears normal with RVSP 39 mmHg. Mild MR & MAC Severe calcific Aortic stenosis Mild TR No echo evidence of endocarditis Sven Muse (Electronically Signed) Final Date: 09 June 2024 13:32
--- NOTE | 2024-06-09 14:29 | ESPR_ITS ---
RE: ROSLYN HENDERSON : 1955 DATE OF SERVICE: 06/09/2024 S: Mr. Henderson is feeling better today. The patient is resting comfortably in bed. The patient is breathing fairly well at rest. Denies any complaints of chest pain. Denies any complaints of skipped beats or palpitation. O: Vital Signs: Blood pressure this morning is 125/73. Pulse rate is 60 and regular. Respiratory rate is 21. Temperature rate 97.2. Oxygen saturation is 95%. Heart: Ejection systolic murmur of aortic stenosis. Lungs: Clear to percussion and auscultation. Extremities: Trace pedal edema is noted. Laboratory Data: Today shows WBC count is better than yesterday and is down to 15,600, hemoglobin is 12.7 with hematocrit of 38.2. The patient's BUN this morning is 31, creatinine 1.5, potassium level is 3.9. The patient had cardiac echo Doppler study done earlier today, which showed severe calcific aortic stenosis and mild mitral regurgitation as well as mild tricuspid regurgitation. Left ventricular systolic function is good with ejection fraction of 55% to 60%. No echo evidence of endocarditis is noted. P: Continue the patient on intravenous antibiotic therapy as well as all present medications and general supportive care. The patient will be gotten out of bed and ambulated. DT: 13:38:37 TT: 14:28:00 Ref: [id number] - TID: [id number]
--- NOTE | 2024-06-09 16:40 | PC.SS ---
Rounding Note: Patient receiving IV antibiotics. I&D consulting. Patient will need BETTY.
--- NOTE | 2024-06-09 19:28 | PD.RESCONSUL ---
HPI Data of Consult Patient: new to practice Consult date: 06/09/24 Requesting Physician: Ara Art DO Admitting Provider: Sal Stack MD Attending Provider: Ara Art DO Primary Care Provider: Physician No Primary/Family Consult Narrative Reason for consult: Trans-esophageal Echocardiogram History of present illness: Mr Swift is a 69-year-old male with PMHx Chronic venous hypertension, bilateral lower extremity ulcers, chronic varicose veins, chronic venous stasis, valvular disease, status post pacemaker (2018, Dr. Muse), and hypertension chronic lower extremity edema CHF, history of CVA, BPH, obesity, who comes in for an evaluation of elevated temperature, altered mental status and lethargy. Patient's son is at bedside with reported that patient had progressively get worse over the past couple of days. He also says that some of his family members in the house have gotten the flu and they thought he was getting sick with the flu. Patient continued to worsen with his altered mental status and he decided to come to the ED for further workup. No recent travel or recent illnesses. He does follow with a vascular surgeon, Dr. Posada, and also sees the wound clinic twice a week to manage his chronic venous ulcers. There was talk at some point of getting a bilateral BKA to manage his ulcers. He complains of having elevated temperatures, however no chest pain but is experiencing some shortness of breath. He also has been getting a headache, with some changes with vision as described blurry. No recent trauma, denies any nausea vomiting diarrhea. No other complaints at this time. ED course: Patient arrived with a temperature of 103 (temperature reaching up to 106 in the ED), heart rate 60, tachypneic with a rate of 28, blood pressure 149/68, respiratory rate 98 on 2 L nasal cannula. He was worked up and was found to have white count of 20, hemoglobin 14.8, ABG showed pH of 7.52, pCO2 of 20, potassium 4.7, sodium 137, bicarb 21.5, BUN/creatinine 21 and 1.7 respectively, lactate 3,.3 AST ALT 26 and 14 respectively, CK 267. Urinalysis showed +3 protein, +2 blood, 7 RBCs. Chest x-ray showed mild heart failure. Head CT negative for acute hemorrhage, midline shift or mass effect. Patient was given 2 L NS, Tylenol 650 mg x 2, Zosyn and Vanco x 1. Medicine was consulted and patient admitted to floors. With the progression of hospital course, patient was found to have GPC bacteremia, 2/2 bottles, patient had sepsis with underlying JEANETTE, had worsening lactate. CT abdomen pelvis was nonconclusive of source of infection, urine culture was negative, infectious disease was consulted recommended BETTY if TTE is negative for endocarditis, blood cultures 06/06 shows beta-hemolytic Streptococcus A, pansensitive and repeat blood cultures from 06/07 showed no growth in 48 hours. Patient is being followed by sewer system supervisor Dr. Muse outpatient, consulted for transesophageal echocardiogram. cc:: cc: Ara Art, Review of Systems Review of Systems Narrative Review of Systems: ROS: -CONSTITUTIONAL: Denies weight loss, fever and chills. -HEENT: Denies changes in vision and hearing. -RESPIRATORY: Denies SOB and cough. -CV: Denies palpitations and Chest Pain. -GI: Denies abdominal pain, nausea, vomiting,constipation and diarrhea. -: Denies dysuria and urinary frequency. -MSK: Denies myalgia and joint pain. -SKIN: Denies rash and pruritus. -NEUROLOGICAL: Denies headache and syncope. -PSYCHIATRIC: Denies recent changes in mood. Denies anxiety and depression. Past Medical History Past Medical History Comments PMH COMMENT: Past medical history: As above Surgical history: Pacemaker placement 2017 Meds: [place] 10, clonidine 0.2, Metoprol tartrate 50, Aldactone 25, nitro as needed, Lexapro 20, amlodipine 5, baby aspirin Allergies: Latex gives him rash Family history: Limited family history, unsure if there is family history of stroke, heart disease or diabetes Social history: Denies any oral or IV drug use, denies ever being a heavy drinker, no smoking history Exam Vital Signs Temp Pulse Resp BP Pulse Ox O2 Del Method O2 Flow Rate 97.5 F 60 20 127/78 95 Room Air 2 06/09/24 16:00 06/09/24 16:00 06/09/24 16:06/09/24 16:00 06/09/24 16:06/09/24 16:06/09/24 07:06 Narrative Exam Physical Exam: General: Awake, obese male, answers questions appropriately, appears stated age HEENT: Moist mucous membranes, conjunctiva clear, EOMI, PERRLA Cardiovascular: + Systolic murmur, radial pulses +2 bilat, RRR Pulmonary: On room air. No crackles/rales, wheezing or rhonchi GI: No tenderness to light or deep palpitation, no guarding, rigidity, rebound tenderness or distension : Payne catheter present, yellow urine noted Extremities: Chronic venous stasis, multiple ulcers located in LE including plantar foot, achilles tendon Neuro: AAOx2, no nuchal rigidity appreciated, Kernig and Brudzinski test negative, able to move extremities x 4, no focal neurologic deficits noted Results Labs 06/10/24 06:44 06/10/24 05:40 Labs: Short CBC 06/09/24 Range/Units 05:21 WBC 15.6 H (3.8-10.6) Thou/mm3 Hgb 12.7 L (13.5-16.0) g/dL Hct 38.2 L (41.0-53.0) % Plt Count 90 L (140-440) Thou/mm3 BMP 06/09/24 05:21 Sodium 138 Potassium 3.9 Chloride 108 H Carbon Dioxide 19.8 L BUN 31 H Creatinine 1.5 H Glucose 122 H Calcium 8.8 Liver Function 06/09/24 Range/Units 05:21 Total Bilirubin 0.9 (0.3-1.2) mg/dL AST 73 H (0-34) U/L ALT 45 (10-49) U/L Alkaline Phosphatase 90 D (46-116) U/L Albumin 3.2 L (3.4-4.8) gm/dL ABG Interpretation ABG results: 06/06/24 06/07/24 06/07/24 21:29 08:28 14:06 ABG pH 7.52 H 7.35 D 7.38 ABG pCO2 20 L 27 L 26 L ABG pO2 63 L 81 L 100 ABG HCO3 16 L 15 L 15 L ABG O2 Saturation 95 97 99 H ABG Base Excess -4 L -9 L -8 L Quality Measures Quality Measures VTE prophylaxis (heparin) Advance care planning discussed with:: patient Medications Home Medications and Allergies Home Medications ?Medication ?Instructions ?Recorded ?Confirmed ?Type nitroglycerin 0.4 mg sublingual 0.4 mg SL PRN PRN CHEST TIGHTNESS 12/20/16 06/07/24 History tablet (Nitrostat) #0 tabs amlodipine 5 mg tablet 5 mg PO QDAY 06/04/22 06/07/24 History aspirin 81 mg chewable tablet 81 mg PO QDAY 06/04/22 06/07/24 History clonidine HCl 0.2 mg tablet 0.2 mg PO BID 06/04/22 06/07/24 History escitalopram oxalate 20 mg tablet 20 mg PO QDAY 06/04/22 06/07/24 History metoprolol tartrate 50 mg tablet 50 mg PO BID 06/04/22 06/07/24 History tamsulosin 0.4 mg capsule (Flomax) 0.4 mg PO QDAY 06/04/22 06/07/24 History spironolactone 25 mg tablet 25 mg PO BID 07/03/23 06/07/24 History hydrocodone 10 mg-acetaminophen 1 tab PO BID PRN pain 06/07/24 06/07/24 History 325 mg tablet Allergies Allergy/AdvReac Type Severity Reaction Status Date / Time latex Allergy Rash Verified 11/04/23 21:49 Visit Medications Acetaminophen (Acetaminophen 325 Mg Tablet) 650 mg PO Q6HR PRN PRN Reason: Fever >100.4 or Pain 1-3 Stop: 07/07/24 15:30 Last Admin: 06/08/24 07:50 Dose: 650 mg Hydrocodone Bitart/Acetaminophen (Hydrocodone/Apap 10/325 Tab) 1 tab PO Q4H PRN PRN Reason: PAIN SCALE 4-6 (Moderate Stop: 06/12/24 04:19 Albuterol/Ipratropium (Albuterol/Ipratropium (Duoneb) Rt Marzena 3 Ml Nebu) 3 ml INH Q6HRRT [facility] Stop: 07/07/24 13:34 Last Admin: 06/09/24 07:06 Dose: 3 ml Amlodipine Besylate (Amlodipine Besylate 5 Mg Tablet) 5 mg PO QDAY [facility] Stop: 07/09/24 08:59 Last Admin: 06/09/24 08:16 Dose: 5 mg Aspirin (Aspirin 81 Mg Chew) 81 mg PO QDAY [facility] Stop: 07/09/24 08:59 Last Admin: 06/09/24 08:16 Dose: 81 mg Escitalopram Oxalate (Escitalopram Oxalate 10 Mg Tablet) 20 mg PO QDAY [facility] Stop: 07/09/24 08:59 Last Admin: 06/09/24 08:16 Dose: 20 mg Heparin Sodium (Porcine) (Heparin Sod Inj 5000 Unit/Ml Vial) 5,000 unit SC Q12HR [facility] Stop: 06/21/24 04:29 Last Admin: 06/09/24 08:17 Dose: 5,000 unit Ceftriaxone Sodium/Dextrose (Rocephin/D5w 2gm) 2 gm in 50 mls @ 100 mls/hr IV QDAY [facility] Stop: 06/17/24 08:59 Lorazepam (Lorazepam 2 Mg/Ml Vial) 2 mg IVP Q30M PRN PRN Reason: Beakthrough seizures Stop: 06/12/24 13:28 Ondansetron HCl (Ondansetron Inj 2 Mg/Ml Inj 2 Ml) 4 mg IV Q6H PRN; Protocol PRN Reason: NAUSEA OR VOMITING Stop: 07/07/24 04:25 Last Admin: 06/08/24 07:50 Dose: 4 mg Sennosides (Senna Tablet) 1 tab PO QDAY [facility]; Protocol Stop: 07/08/24 08:59 Last Admin: 06/09/24 08:17 Dose: 1 tab Spironolactone (Spironolactone 25 Mg Tablet) 25 mg PO BID [facility] Stop: 07/09/24 20:59 Tamsulosin HCl (Tamsulosin Hcl 0.4 Mg Capsule) 0.4 mg PO QDAY [facility] Stop: 07/08/24 08:59 Last Admin: 06/09/24 08:17 Dose: 0.4 mg Discontinued Medications Acetaminophen (Acetaminophen Supp 650 Mg Supp) 650 mg OK X1 ONE Stop: 06/06/24 20:07 Last Admin: 06/06/24 20:41 Dose: 650 mg Acetaminophen (Acetaminophen Supp 650 Mg Supp) 650 mg OK X1 ONE Stop: 06/06/24 21:39 Last Admin: 06/06/24 22:40 Dose: 650 mg Sodium Chloride (Ns) 1,000 mls @ 999 mls/hr IV .Q1H1M ONE Stop: 06/06/24 21:13 Last Infusion: 06/06/24 22:50 Dose: Infused Sodium Chloride (Ns) 1,000 mls @ 999 mls/hr IV .Q1H1M ONE Stop: 06/06/24 21:13 Last Infusion: 06/07/24 01:35 Dose: Infused Piperacillin/Tazobactam/Dextrose (Zosyn) 3.375 gm in 50 mls @ 100 mls/hr IV X1 ONE Stop: 06/06/24 21:46 Last Infusion: 06/06/24 23:06 Dose: Infused Vancomycin HCl 1,000 mg/ (Sodium Chloride) 250 mls @ 150 mls/hr IV X1 ONE Stop: 06/07/24 00:35 Last Infusion: 06/07/24 01:49 Dose: Infused Sodium Chloride (Ns) 1,000 mls @ 999 mls/hr IV .Q1H1M ONE Stop: 06/07/24 00:05 Last Infusion: 06/07/24 02:34 Dose: Infused Sodium Chloride (Ns) 1,000 mls @ 999 mls/hr IV .Q1H1M ONE Stop: 06/07/24 03:01 Last Infusion: 06/07/24 04:00 Dose: Infused Acetaminophen (Ofirmev Inj) 1,000 mg in 100 mls @ 250 mls/hr IV X1 ONE Stop: 06/07/24 02:24 Last Infusion: 06/07/24 03:15 Dose: Infused Sodium Chloride (Ns) 1,000 mls @ 999 mls/hr IV .Q1H1M ONE Stop: 06/07/24 03:06 Last Infusion: 06/07/24 05:35 Dose: Infused Ampicillin Sodium 2,000 mg/ (Sodium Chloride) 100 mls @ 100 mls/hr IV Q6HR ISHA; Protocol Stop: 06/14/24 11:59 Last Infusion: 06/07/24 15:31 Dose: Infused Ceftriaxone Sodium 2 gm/ (Sodium Chloride) 50 mls @ 100 mls/hr IV Q12HR ISHA Stop: 06/14/24 20:59 Last Admin: 06/09/24 08:16 Dose: 100 mls/hr Acyclovir Sodium 684 mg/ (Sodium Chloride) 113.68 mls @ 94.755 mls/hr IV Q12HR ISHA; Protocol Stop: 06/14/24 20:59 Ceftriaxone Sodium 2 gm/ (Sodium Chloride) 50 mls @ 100 mls/hr IV X1 ONE Stop: 06/07/24 03:29 Last Infusion: 06/07/24 05:05 Dose: Infused Ampicillin Sodium 2,000 mg/ (Sodium Chloride) 100 mls @ 100 mls/hr IV Q4HR ISHA Stop: 06/07/24 06:59 Last Infusion: 06/07/24 08:07 Dose: Infused Acyclovir Sodium 684 mg/ (Sodium Chloride) 113.68 mls @ 94.755 mls/hr IV X1 ONE Stop: 06/07/24 04:11 Last Infusion: 06/07/24 06:44 Dose: Infused Magnesium Sulfate (Magnesium Sulfate Ivpb) 4 gm in 50 mls @ 12.5 mls/hr IV X1 ONE Stop: 06/07/24 10:59 Last Infusion: 06/07/24 11:59 Dose: Infused Magnesium Sulfate (Magnesium Sulfate Ivpb) 4 gm in 50 mls @ 12.5 mls/hr IV X1 ONE Stop: 06/07/24 14:59 Last Infusion: 06/07/24 15:58 Dose: Infused Vancomycin/Sodium Chloride (Vancomycin/Ns 1 Gm Ivpb) 200 mls @ 120 mls/hr IV X1 ONE Stop: 06/07/24 11:09 Last Infusion: 06/07/24 12:01 Dose: Infused Lactated Ringer's (Lactated Ringers) 1,000 mls @ 999 mls/hr IV .Q1H1M ONE Stop: 06/07/24 13:06 Last Infusion: 06/07/24 15:11 Dose: Infused Acetaminophen (Ofirmev Inj) 1,000 mg in 100 mls @ 250 mls/hr IV X1 ONE Stop: 06/07/24 16:57 Last Infusion: 06/07/24 17:14 Dose: Infused Vancomycin HCl/Dextrose (Vancomycin/D5w 1,250 Mg Ivpb) 250 mls @ 120 mls/hr IV Q24H ISHA Stop: 06/15/24 09:59 Vancomycin HCl (Vancomycin/Water 1250 Mg Ivpb) 250 mls @ 120 mls/hr IV Q24H ISHA Stop: 06/15/24 09:59 Last Infusion: 06/08/24 20:32 Dose: Infused Sodium Phosphate 15 mmol/ (Sodium Chloride) 255 mls @ 62.5 mls/hr IV X1 ONE Stop: 06/09/24 11:29 Last Admin: 06/09/24 09:35 Dose: 62.5 mls/hr Lorazepam (Lorazepam 2 Mg/Ml Vial) 1 mg IVP X1 ONE Stop: 06/07/24 17:26 Last Admin: 06/07/24 17:34 Dose: 1 mg Pharmacy Consult (Vancomycin Pharmacy To Dose 1 Each Each) 1 each IV QDAY PRN PRN Reason: PROTOCOL Stop: 07/07/24 08:59 Polyethylene Glycol (Polyethylene Glycol 17 Gm Packet) 17 gm PO X1 ONE Stop: 06/09/24 07:29 Last Admin: 06/09/24 08:16 Dose: 17 gm Sodium Bicarbonate (Sodium Bicarb Inj 8.4% 1 Meq/Ml 50 Ml Vial) 50 meq IV X1 ONE Stop: 06/07/24 12:08 Last Admin: 06/07/24 12:23 Dose: 50 meq Assessment & Plan Plan 69-year-old male with past medical history of chronic venous hypertension, bilateral lower extremity ulcers, chronic varicose veins, chronic venous stasis, valvular disease, status post pacemaker (2018, Dr. Muse), and hypertension, history of seizures, chronic lower extremity edema CHF, history of CVA, BPH, obesity, who is admitted for sepsis and acute encephalopathy. Cardiology consulted for transthoracic echocardiogram #Acute encephalopathy, improving #Sepsis secondary to GPC bacteremia #Lactic acidosis, improving #Bibasilar atelectasis vs. early PNA Initially WBC 20, Temp reaching up to 105.9, was given multiple doses of Tylenol and has only slightly improved patient's temperature Initial blood cultures show beta-hemolytic Streptococcus A, repeat blood cultures negative for growth in 48 hours qSOFA: 2 points; 3 out of 4 SIRS criteria, no tachycardia with acute sepsis-related organ dysfunction as evidence by JEANETTE CT abdomen pelvis showed no significant source of infection ID consulted recommended transthoracic echocardiogram followed by trans esophageal echocardiogram to rule out endocarditis. Transthoracic echocardiogram 06/09/2024: Mild LVH with EF 55-60%. Diastolic Dysfunction II present. RV appears normal with RVSP 39 mmHg. Mild MR & MAC Severe calcific Aortic stenosis Mild TR No echo evidence of endocarditis Patient denies any kind of swallowing problems or any kind of esophageal interventions or previous surgeries. Patient denies any kind of gastric ulcers bleeding and any other hematemesis or hematochezia. Patient denies any issues with anesthesia previously. Patient explained all the risks, benefits and alternatives of BETTY including the risk of perforation, bleeding, respiratory failure secondary to sedation, injury to teeth gums esophagus and stomach. Patient understands all risks and benefits and provided consent for the procedure. We will keep him n.p.o. overnight and plan for BETTY in the morning. #History of HTN #Severe aortic stenosis #Diastolic heart failure with preserved ejection fraction, EF 55 to 60% #S/p pacemaker [address] Muse as his primary sewer system supervisor Transthoracic echocardiogram 06/09/2024: Mild LVH with EF 55-60%. Diastolic Dysfunction II present. RV appears normal with RVSP 39 mmHg. Mild MR & MAC Severe calcific Aortic stenosis Mild TR No echo evidence of endocarditis Right and left heart catheterization 08/13/2023: Severe calcific aortic stenosis with mild aortic regurgitation and inability to cross the aortic valve with guidewire. Mild coronary artery disease with 30% calcific stenosis in its mid portion, 50% calcific ostial stenosis of the first diagonal branch and 20% eccentric stenosis of the mid left circumflex coronary artery. Mild to moderate pulmonary hypertension. Normal right femoral arterial angiography. H/O permanent pacemaker implantation first time in 2001 with change out in 2008 and again in 2018. Patient being followed by Dr. Muse while inpatient #Seizure, unknown etiology? #Chronic venous hypertension #Chronic lower extremity ulcers #Chronic varicose veins #Chronic venous stasis #History of BPH #Primary hepatocellular disease #21 mm fat-containing umbilical hernia Inflammation in the left groin -Management per primary team Thank you for the consult and allowing to participate in the care of the patient. Case discussed with Attending Dr. Lloyd Hoff PGY1 Disclaimer: This note was dictated by speech recognition. Minor errors in surgical scrub technologist may be present due to voice recognition software. Attending Provider Attestation/Addendum I have personally seen and examined the patient separately on the above date of service and discussed the plan of care with the resident. I reviewed the resident Dr. Devonte Hoff consultation progress note and agree with the resident findings and plan in the note above and have also edited the documentation to reflect my findings and plan. Layo Desai M.D. Interventional Cardiology
[2024-06-09] MEDS: SPIRONOLACTONE 25 MG TABLET PO (20:46)
[2024-06-10] VITALS (20 sets, daily range): BP systolic 120–157; BP diastolic 54–99; PULSE 60–90; RESP 13–96; TEMP 36.2–37.2; O2SAT 94–99; BMI 44.6
[2024-06-10] MEDS: ALBUTEROL/IPRATROPIUM (Duoneb) RT SOL 3 ML NEBU INH (00:45)
[2024-06-10 06:10] LABS: Lactate (Lactic Acid) 1.7 mMol/L (0.4-2.0)
[2024-06-10 06:52] LABS: Alanine Aminotransferase 48 U/L (10-49); Albumin, Serum 3.1 gm/dL (3.4-4.8); Albumin/Globulin Ratio 1.1 (1.2-2.2); Alkaline Phosphatase 95 U/L (46-116); Anion Gap 10 (7-16); Aspartate Amino Transferase 65 U/L (0-34); BUN/Creatinine Ratio 18 Ratio (12-20); Bilirubin,Total 0.8 mg/dL (0.3-1.2); Blood Urea Nitrogen 24 mg/dL (9-23); Calcium 8.4 mg/dL (8.3-10.6); Calcium (Corrected) 9.1 mg/dL (8.5-10.1); Carbon Dioxide 18.3 mMol/L (20.0-31.0); Chloride 110 mMol/L (98-107); Creatinine (Component) 1.3 mg/dL (0.6-1.3); Estimated Creatinine Clearance 66.3 mL/min (>60); Globulin 2.7 gm/dL (2.3-3.5); Glucose 93 mg/dL (74-106); Osmolality,Calculated 279 (275-295); Phosphorous 2.7 mg/dL (2.4-5.1); Potassium 4.1 mMol/L (3.4-5.1); Sodium 138 mMol/L (136-145); Total Protein 5.8 gm/dL (5.7-8.2); eGFR 59 See Note
[2024-06-10 07:10] LABS: Basophils # (Auto) 0.1 Thou/mm3 (0.0-0.2); Basophils % (Auto) 0 % (0-2.5); Eosinophils # (Auto) 0.1 Thou/mm3 (0.0-0.5); Eosinophils % (Auto) 1 % (0-10); Hematocrit 38.9 % (41.0-53.0); Hemoglobin 12.7 g/dL (13.5-16.0); Immature Granulocytes % (Auto) 2 % (0-0); Immature Granulocytes Auto 0.21 Thou/mm3 (0.00-0.00); Lymphocytes # (Auto) 0.8 Thou/mm3 (1.0-4.8); Lymphocytes % (Auto) 6 % (10-50); Mean Corpuscular HGB Conc 32.6 g/dl (31.0-37.0); Mean Corpuscular Hemoglobin 29.1 pg (25.0-35.0); Mean Corpuscular Volume 89 fL (80-100); Monocytes # (Auto) 1.3 Thou/mm3 (0.0-0.8); Monocytes % (Auto) 10 % (0-12); Neutrophils # (Auto) 11.1 Thou/mm3 (1.8-7.7); Neutrophils % (Auto) 82 % (37-80); Nucleated Red Blood Cell % 0 /100 WBC (0); Platelet Count 94 Thou/mm3 (140-440); RDW Standard Deviation 46.5 fL (35.1-43.9); Red Blood Count 4.36 Miln/mm3 (4.50-5.90); White Blood Count 13.6 Thou/mm3 (3.8-10.6)
[2024-06-10] MEDS: Milk Of Magnesia Susp 30 ML UDC PO (09:42)
[2024-06-10] MEDS: ASPIRIN 81 MG CHEW PO (09:43)
[2024-06-10] MEDS: ESCITALOPRAM OXALATE 10 MG TABLET 20 MG PO (09:43)
[2024-06-10] MEDS: SPIRONOLACTONE 25 MG TABLET PO ×2 (09:43→20:51)
[2024-06-10] MEDS: amLODIPine BESYLATE 5 MG TABLET PO (09:43)
[2024-06-10] MEDS: cefTRIAXone/D5w 2gm 2 GM/50 ML BAG IV (09:44)
[2024-06-10] MEDS: TAMSULOSIN HCL 0.4 MG CAPSULE PO (09:44)
[2024-06-10] MEDS: SENNA TABLET 1 TAB PO (09:44)
[2024-06-10] MEDS: HEPARIN SOD INJ 5000 UNIT/ML VIAL SC ×2 (09:49→20:51)
--- NOTE | 2024-06-10 10:03 | PD.RESPRO ---
Documentation for date of: 06/10/24 Subjective Subjective Interval history: Mr Swift is a 69-year-old male with PMHx Chronic venous hypertension, bilateral lower extremity ulcers, chronic varicose veins, chronic venous stasis, valvular disease, status post pacemaker (2018, Dr. Muse), and hypertension chronic lower extremity edema CHF, history of CVA, BPH, obesity, who comes in for an evaluation of elevated temperature, altered mental status and lethargy. Patient's son is at bedside with reported that patient had progressively get worse over the past couple of days. He also says that some of his family members in the house have gotten the flu and they thought he was getting sick with the flu. Patient continued to worsen with his altered mental status and he decided to come to the ED for further workup. No recent travel or recent illnesses. He does follow with a vascular surgeon, Dr. Posada, and also sees the wound clinic twice a week to manage his chronic venous ulcers. There was talk at some point of getting a bilateral BKA to manage his ulcers. He complains of having elevated temperatures, however no chest pain but is experiencing some shortness of breath. He also has been getting a headache, with some changes with vision as described blurry. No recent trauma, denies any nausea vomiting diarrhea. No other complaints at this time. ED course: Patient arrived with a temperature of 103 (temperature reaching up to 106 in the ED), heart rate 60, tachypneic with a rate of 28, blood pressure 149/68, respiratory rate 98 on 2 L nasal cannula. He was worked up and was found to have white count of 20, hemoglobin 14.8, ABG showed pH of 7.52, pCO2 of 20, potassium 4.7, sodium 137, bicarb 21.5, BUN/creatinine 21 and 1.7 respectively, lactate 3,.3 AST ALT 26 and 14 respectively, CK 267. Urinalysis showed +3 protein, +2 blood, 7 RBCs. Chest x-ray showed mild heart failure. Head CT negative for acute hemorrhage, midline shift or mass effect. Patient was given 2 L NS, Tylenol 650 mg x 2, Zosyn and Vanco x 1. Medicine was consulted and patient admitted to floors. With the progression of hospital course, patient was found to have GPC bacteremia, 2/2 bottles, patient had sepsis with underlying JEANETTE, had worsening lactate. CT abdomen pelvis was nonconclusive of source of infection, urine culture was negative, infectious disease was consulted recommended BETTY if TTE is negative for endocarditis, blood cultures 06/06 shows beta-hemolytic Streptococcus A, pansensitive and repeat blood cultures from 06/07 showed no growth in 48 hours. Patient is being followed by bakery machine mechanic supervisor Dr. Muse outpatient, consulted for transesophageal echocardiogram 06/10/2024: Patient seen and examined at bedside today, patient counseled on risks and benefits of BETTY, patient's son at bedside, verbalized understanding. Patient scheduled for BETTY later in the afternoon today, was kept n.p.o. BETTY negative for any vegetations, infectious diseases following patient. Patient being followed by his bakery machine mechanic supervisor Dr. Muse while inpatient and we will sign off. Exam Vital Signs Temp Pulse Resp BP Pulse Ox O2 Del Method O2 Flow Rate 97.9 F 61 20 146/79 H 96 Room Air 2 06/10/24 08:00 06/10/24 09:43 06/10/24 08:28 06/10/24 09:43 06/10/24 08:28 06/10/24 08:00 06/10/24 00:00 Narrative Exam Physical Exam: General: Awake, obese male, answers questions appropriately, appears stated age HEENT: Moist mucous membranes, conjunctiva clear, EOMI, PERRLA Cardiovascular: + Systolic murmur, radial pulses +2 bilat, RRR Pulmonary: On room air. No crackles/rales, wheezing or rhonchi GI: No tenderness to light or deep palpitation, no guarding, rigidity, rebound tenderness or distension : Payne catheter present, yellow urine noted Extremities: Chronic venous stasis, multiple ulcers located in LE including plantar foot, achilles tendon Neuro: AAOx2, no nuchal rigidity appreciated, Kernig and Brudzinski test negative, able to move extremities x 4, no focal neurologic deficits noted Objective Labs 06/10/24 06:44 06/10/24 05:40 Labs: Laboratory Results - last 24 hr 06/07/24 06/10/24 06/10/24 07:20 05:40 06:44 WBC 13.6 H RBC 4.36 L Hgb 12.7 L Hct 38.9 L MCV 89 MCH 29.1 MCHC 32.6 RDW Std Deviation 46.5 H Plt Count 94 L Neut % (Auto) 82 H Lymph % (Auto) 6 L Scott % (Auto) 10 Eos % (Auto) 1 Baso % (Auto) 0 Neut # (Auto) 11.1 H Lymph # (Auto) 0.8 L Scott # (Auto) 1.3 H Eos # (Auto) 0.1 Baso # (Auto) 0.1 Immature Gran # (Auto) 0.21 H Absolute Nucleated RBC 0.00 Immature Gran % 2 H Nucleated RBC % 0 Sodium 138 Potassium 4.1 Chloride 110 H Carbon Dioxide 18.3 L Anion Gap 10 BUN 24 H Creatinine 1.3 Estim Creat Clear Calc 66.3 eGFR 59 L BUN/Creatinine Ratio 18 Glucose 93 Calculated Osmolality 279 Lactic Acid 1.7 Calcium 8.4 Corrected Calcium 9.1 Phosphorus 2.7 Total Bilirubin 0.8 AST 65 H ALT 48 Alkaline Phosphatase 95 Total Protein 5.8 Albumin 3.1 L Globulin 2.7 Albumin/Globulin Ratio 1.1 L TB Test (QFT) See Nov Rpt ABG Interpretation ABG results: 06/06/24 06/07/24 06/07/24 21:29 08:28 14:06 ABG pH 7.52 H 7.35 D 7.38 ABG pCO2 20 L 27 L 26 L ABG pO2 63 L 81 L 100 ABG HCO3 16 L 15 L 15 L ABG O2 Saturation 95 97 99 H ABG Base Excess -4 L -9 L -8 L Quality Measures Quality Measures VTE prophylaxis (heparin) Advance care planning discussed with:: patient Assessment & Plan Assessment Current Active Medications: Generic Name Dose Route Start Last Admin Trade Name Freq PRN Reason Stop Dose Admin Acetaminophen 650 mg 06/07/24 15:31 06/08/24 07:50 Acetaminophen 325 Mg Tablet PO 07/07/24 15:30 650 mg Q6HR PRN Administration Fever >100.4 or Pain 1-3 Hydrocodone Bitart/Acetaminophen 1 tab 06/07/24 04:20 Hydrocodone/Apap 10/325 Tab PO 06/12/24 04:19 Q4H PRN PAIN SCALE 4-6 (Moderate Albuterol/Ipratropium 3 ml 06/10/24 08:28 Albuterol/Ipratropium (Duoneb) Rt Marzena 3 Ml Nebu INH 07/07/24 13:34 Q6HRRT PRN wheeze Amlodipine Besylate 5 mg 06/09/24 09:00 06/10/24 09:43 Amlodipine Besylate 5 Mg Tablet PO 07/09/24 08:59 5 mg QDAY ISHA Administration Aspirin 81 mg 06/09/24 09:00 06/10/24 09:43 Aspirin 81 Mg Chew PO 07/09/24 08:59 81 mg QDAY ISHA Administration Escitalopram Oxalate 20 mg 06/09/24 09:00 06/10/24 09:43 Escitalopram Oxalate 10 Mg Tablet PO 07/09/24 08:59 20 mg QDAY ISHA Administration Heparin Sodium (Porcine) 5,000 unit 06/07/24 04:30 06/10/24 09:49 Heparin Sod Inj 5000 Unit/Ml Vial SC 06/21/24 04:29 5,000 unit Q12HR ISHA Administration Ceftriaxone Sodium/Dextrose 2 gm in 50 mls @ 100 mls/hr 06/10/24 09:00 06/10/24 09:44 Rocephin/D5w 2gm IV 06/17/24 08:59 100 mls/hr QDAY ISHA Administration Lorazepam 2 mg 06/07/24 13:29 Lorazepam 2 Mg/Ml Vial IVP 06/12/24 13:28 Q30M PRN Beakthrough seizures Ondansetron HCl 4 mg 06/07/24 04:26 06/08/24 07:50 Ondansetron Inj 2 Mg/Ml Inj 2 Ml IV 07/07/24 04:25 4 mg Q6H PRN Administration NAUSEA OR VOMITING Protocol Sennosides 1 tab 06/08/24 09:00 06/10/24 09:44 Senna Tablet PO 07/08/24 08:59 1 tab QDAY ISHA Administration Protocol Spironolactone 25 mg 06/09/24 21:00 06/10/24 09:43 Spironolactone 25 Mg Tablet PO 07/09/24 20:59 25 mg BID ISHA Administration Tamsulosin HCl 0.4 mg 06/08/24 09:00 06/10/24 09:44 Tamsulosin Hcl 0.4 Mg Capsule PO 07/08/24 08:59 0.4 mg QDAY ISHA Administration Plan 69-year-old male with past medical history of chronic venous hypertension, bilateral lower extremity ulcers, chronic varicose veins, chronic venous stasis, valvular disease, status post pacemaker (2018, Dr. Muse), and hypertension, history of seizures, chronic lower extremity edema CHF, history of CVA, BPH, obesity, who is admitted for sepsis and acute encephalopathy. Cardiology consulted for transthoracic echocardiogram #Acute encephalopathy, improving #Sepsis secondary to GPC bacteremia #Lactic acidosis, improving #Bibasilar atelectasis vs. early PNA Initially WBC 20, Temp reaching up to 105.9, was given multiple doses of Tylenol and has only slightly improved patient's temperature Initial blood cultures show beta-hemolytic Streptococcus A, repeat blood cultures negative for growth in 48 hours qSOFA: 2 points; 3 out of 4 SIRS criteria, no tachycardia with acute sepsis-related organ dysfunction as evidence by JEANETTE CT abdomen pelvis showed no significant source of infection ID consulted recommended transthoracic echocardiogram followed by trans esophageal echocardiogram to rule out endocarditis. Transthoracic echocardiogram 06/09/2024: Mild LVH with EF 55-60%. Diastolic Dysfunction II present. RV appears normal with RVSP 39 mmHg. Mild MR & MAC Severe calcific Aortic stenosis Mild TR No echo evidence of endocarditis Recommendations: BETTY - 06/10/2024 Indication: Bacteremia-rule out endocarditis No evidence of any valvular vegetations or any valvular endocarditis. No evidence of any vegetations on the pacemaker wires Bubble study negative. No PFO or ASD. No evidence of any LA or LA thrombus. Normal LV size and function with an EF of around 55 to 60%. Normal RV size and function. Moderate to severe TR with moderately elevated RVSP of at least 50 to 55 mmHg. Severe calcified aortic valve stenosis with a peak velocity of 4.6 m/s and max PG of 91 mmHg and a mean PG of 54 mmH infectious diseases following patient. Patient being followed by his bakery machine mechanic supervisor Dr. Muse while inpatient and we will sign off. #History of HTN #Severe aortic stenosis #Diastolic heart failure with preserved ejection fraction, EF 55 to 60% #S/p pacemaker [address] Muse as his primary bakery machine mechanic supervisor Transthoracic echocardiogram 06/09/2024: Mild LVH with EF 55-60%. Diastolic Dysfunction II present. RV appears normal with RVSP 39 mmHg. Mild MR & MAC Severe calcific Aortic stenosis Mild TR No echo evidence of endocarditis Right and left heart catheterization 08/13/2023: Severe calcific aortic stenosis with mild aortic regurgitation and inability to cross the aortic valve with guidewire. Mild coronary artery disease with 30% calcific stenosis in its mid portion, 50% calcific ostial stenosis of the first diagonal branch and 20% eccentric stenosis of the mid left circumflex coronary artery. Mild to moderate pulmonary hypertension. Normal right femoral arterial angiography. H/O permanent pacemaker implantation first time in 2001 with change out in 2008 and again in 2018. #Seizure, unknown etiology? #Chronic venous hypertension #Chronic lower extremity ulcers #Chronic varicose veins #Chronic venous stasis #History of BPH #Primary hepatocellular disease #21 mm fat-containing umbilical hernia Inflammation in the left groin -Management per primary team Thank you for the consult and allowing to participate in the care of the patient. Patient being followed by his bakery machine mechanic supervisor Dr. Muse while inpatient and we will sign off. Case discussed with Attending Dr. Lloyd Hoff PGY1 Disclaimer: This note was dictated by speech recognition. Minor errors in broadcast news producer may be present due to voice recognition software. Attending Provider Attestation/Addendum I have personally seen and examined the patient separately on the above date of service and discussed the plan of care with the resident. I reviewed the resident Dr. Devonte Hoff consultation progress note and agree with the resident findings and plan in the note above and have also edited the documentation to reflect my findings and plan. Layo Desai M.D. Interventional Cardiology
--- NOTE | 2024-06-10 11:17 | ESPR_ITS ---
RE: ROSLYN HENDERSON : 1955 DATE OF SERVICE: 06/10/2024 S: Mr. Henderson is resting comfortably in bed. The patient is breathing fairly well without oxygen. Denies any complaint of chest pain. Denies any complaint of skipped beats or palpitations. The patient is complaining of swelling of the scrotal area though. O: Vital Signs: The patient's blood pressure today is 146/79. Pulse rate is 61 per minute. Temperature is 97.9. Respiratory rate is 20 per minute. Oxygen saturation on room air is 96%. Heart: Shows ejection systolic murmur of aortic stenosis. Lungs: Slightly decreased breasts sounds at the bases. Extremities: Trace pedal edema is persistent. Genitalia: Scrotal edema is also noted. Laboratory Data: Today showed WBC count is better than yesterday and is down to 13,600, hemoglobin is 12.7 with hematocrit of 38.9. BUN today is 24, creatinine 1.3, potassium level is 4.1. P: The patient is for BETTY today to rule out the possibility of endocarditis. Present medications will be continued as before. DT: 10:55:48 TT: 11:16:00 Ref: [id number] - TID: [id number]
[2024-06-10] MEDS: BENZOCAINE 20% (Hurricaine) SPRAY 1 DOSE TOP (12:50)
[2024-06-10] MEDS: fentaNYL CIT INJ 50 mCg/ML AMP 2ML 75 MCG IV (12:51)
[2024-06-10] MEDS: MIDAZOLAM INJ 1 MG/ML VIAL 2 ML 3 MG IV (12:51)
--- NOTE | 2024-06-10 13:16 | ESPR_ITS ---
<Statement entered by Jennifer Salvador MD - 06/11/24 05:38> Patient was seen and examined by me personally. I have directly supervised and reviewed documentation by the team resident and agree with its findings with any exceptions or additional findings as below. Plan of care was discussed with the attending, Dr. Art. Today the patient is planned for BETTY to further investigate for possible endocarditis given the group A strep bacteremia and patient is high risk with the history of aortic stenosis. TTE was normal without evidence of endocarditis. He feels well and denies any complaints. WBC is continuing to downtrend. Kidney function has improved with creatinine downtrending from 1.5 to 1.3. Lactic acid has normalized. Second set of blood cultures from 06/07 were negative post-48 hours. Continue with IV ceftriaxone 2 g daily. Jennifer Salvador, PGY-2 Documentation for date of: 06/10/24 Subjective Subjective Interval history: 06/10/2024: No acute overnight events to report. Patient seen and examined in hospital bed without any concerning symptoms at this time, denies having any chest pain, shortness of breath, abdominal pain or dizziness. Explained to patient reason for BETTY as he was not sure on the exact reason since TTE was already taken. Patient's family was bedside both the patient and the family had clear understanding why BETTY was necessary. Patient has severe aortic stenosis, fevers, positive blood cultures and at high risk for endocarditis. BETTY was completed on 06/[address] Desai and there is no visualization of any vegetation or signs of endocarditis. Patient will remain on IV antibiotics and we will continue to monitor for any acute changes. Exam Vital Signs Temp Pulse Resp BP Pulse Ox O2 Del Method O2 Flow Rate 98.9 F 63 18 157/89 H 99 Nasal Cannula 2 06/10/24 11:36 06/10/24 12:45 06/10/24 12:45 06/10/24 12:45 06/10/24 12:45 06/10/24 12:45 06/10/24 12:45 Narrative Exam Physical Exam: General: Awake, obese male, answers questions appropriately, appears stated age HEENT: Moist mucous membranes, conjunctiva clear, EOMI, PERRLA Cardiovascular: III/ systolic ejection murmur noted on left sternal border, radial pulses +2 bilat, RRR Pulmonary: On room air. No crackles/rales, wheezing or rhonchi GI: No tenderness to light or deep palpitation, no guarding, rigidity, rebound tenderness or distension : Payne catheter present, yellow urine noted Extremities: Chronic venous stasis, multiple ulcers located in LE including plantar foot, achilles tendon Neuro: AAOx2, no nuchal rigidity appreciated, Kernig and Brudzinski test negative, able to move extremities x 4, no focal neurologic deficits noted Objective Labs 06/11/24 05:06 06/11/24 05:06 Labs: Laboratory Results - last 24 hr 06/07/24 06/10/24 06/10/24 07:20 05:40 06:44 WBC 13.6 H RBC 4.36 L Hgb 12.7 L Hct 38.9 L MCV 89 MCH 29.1 MCHC 32.6 RDW Std Deviation 46.5 H Plt Count 94 L Neut % (Auto) 82 H Lymph % (Auto) 6 L [place] % (Auto) 10 Eos % (Auto) 1 Baso % (Auto) 0 Neut # (Auto) 11.1 H Lymph # (Auto) 0.8 L [place] # (Auto) 1.3 H Eos # (Auto) 0.1 Baso # (Auto) 0.1 Immature Gran # (Auto) 0.21 H Absolute Nucleated RBC 0.00 Immature Gran % 2 H Nucleated RBC % 0 Sodium 138 Potassium 4.1 Chloride 110 H Carbon Dioxide 18.3 L Anion Gap 10 BUN 24 H Creatinine 1.3 Estim Creat Clear Calc 66.3 eGFR 59 L BUN/Creatinine Ratio 18 Glucose 93 Calculated Osmolality 279 Lactic Acid 1.7 Calcium 8.4 Corrected Calcium 9.1 Phosphorus 2.7 Total Bilirubin 0.8 AST 65 H ALT 48 Alkaline Phosphatase 95 Total Protein 5.8 Albumin 3.1 L Globulin 2.7 Albumin/Globulin Ratio 1.1 L TB Test (QFT) See Sep Rpt ABG Interpretation ABG results: 06/06/24 06/07/24 06/07/24 21:29 08:28 14:06 ABG pH 7.52 H 7.35 D 7.38 ABG pCO2 20 L 27 L 26 L ABG pO2 63 L 81 L 100 ABG HCO3 16 L 15 L 15 L ABG O2 Saturation 95 97 99 H ABG Base Excess -4 L -9 L -8 L Quality Measures Quality Measures VTE prophylaxis (heparin) Advance care planning discussed with:: patient Assessment & Plan Assessment Current Active Medications: Generic Name Dose Route Start Last Admin Trade Name Freq PRN Reason Stop Dose Admin Acetaminophen 650 mg 06/07/24 15:31 06/08/24 07:50 Acetaminophen 325 Mg Tablet PO 07/07/24 15:30 650 mg Q6HR PRN Administration Fever >100.4 or Pain 1-3 Hydrocodone Bitart/Acetaminophen 1 tab 06/07/24 04:20 Hydrocodone/Apap 10/325 Tab PO 06/12/24 04:19 Q4H PRN PAIN SCALE 4-6 (Moderate Albuterol/Ipratropium 3 ml 06/10/24 08:28 Albuterol/Ipratropium (Duoneb) Rt Marzena 3 Ml Nebu INH 07/07/24 13:34 Q6HRRT PRN wheeze Amlodipine Besylate 5 mg 06/09/24 09:00 06/10/24 09:43 Amlodipine Besylate 5 Mg Tablet PO 07/09/24 08:59 5 mg QDAY ISHA Administration Aspirin 81 mg 06/09/24 09:00 06/10/24 09:43 Aspirin 81 Mg Chew PO 07/09/24 08:59 81 mg QDAY ISHA Administration Escitalopram Oxalate 20 mg 06/09/24 09:00 06/10/24 09:43 Escitalopram Oxalate 10 Mg Tablet PO 07/09/24 08:59 20 mg QDAY ISHA Administration Heparin Sodium (Porcine) 5,000 unit 06/07/24 04:30 06/10/24 09:49 Heparin Sod Inj 5000 Unit/Ml Vial SC 06/21/24 04:29 5,000 unit Q12HR ISHA Administration Ceftriaxone Sodium/Dextrose 2 gm in 50 mls @ 100 mls/hr 06/10/24 09:00 06/10/24 09:44 Rocephin/D5w 2gm IV 06/17/24 08:59 100 mls/hr QDAY ISHA Administration Lorazepam 2 mg 06/07/24 13:29 Lorazepam 2 Mg/Ml Vial IVP 06/12/24 13:28 Q30M PRN Beakthrough seizures Ondansetron HCl 4 mg 06/07/24 04:26 06/08/24 07:50 Ondansetron Inj 2 Mg/Ml Inj 2 Ml IV 07/07/24 04:25 4 mg Q6H PRN Administration NAUSEA OR VOMITING Protocol Sennosides 1 tab 06/08/24 09:00 06/10/24 09:44 Senna Tablet PO 07/08/24 08:59 1 tab QDAY ISHA Administration Protocol Spironolactone 25 mg 06/09/24 21:00 06/10/24 09:43 Spironolactone 25 Mg Tablet PO 07/09/24 20:59 25 mg BID ISHA Administration Tamsulosin HCl 0.4 mg 06/08/24 09:00 06/10/24 09:44 Tamsulosin Hcl 0.4 Mg Capsule PO 07/08/24 08:59 0.4 mg QDAY ISHA Administration Plan 69-year-old male with past medical history of chronic venous hypertension, bilateral lower extremity ulcers, chronic varicose veins, chronic venous stasis, valvular disease, status post pacemaker (2018, Dr. Muse), and hypertension, history of seizures, chronic lower extremity edema CHF, history of CVA, BPH, obesity, who is admitted for sepsis and acute encephalopathy #Acute encephalopathy, improving #Sepsis secondary to GPC bacteremia #Lactic acidosis, improving #Bibasilar atelectasis vs. early PNA DDx: likely secondary to bacteremia vs. less likely encephalitis, abscess, e ndocarditis? Encephalopathy multifactorial including metabolic and infectious Initially WBC 20, Temp reaching up to 105.9, was given multiple doses of Tylenol and has only slightly improved patient's temperature Patient does have history of MRSA Patient does also have hardware (pacemaker) and MRSA before, will need to rule out endocarditis GPC 2/2 bottles Lactate worsening qSOFA: 2 points; 3 out of 4 SIRS criteria, no tachycardia with acute sepsis- related organ dysfunction as evidence by JEANETTE IVF resuscitation CT Chest/Abd/P shows: Bibasilar atelectasis versus early pneumonia; Suspect primary hepatocellular disease; Perinephric stranding, consider urinary tract infection; Trace ascites 21 mm fat-containing umbilical hernia Inflammation in the left groin, cellulitis pattern without definite abscess. Urine cultures negative, MRSA nares negative One of the initial bottles grew group a strep, beta-hemolytic Streptococcus a, pansensitive [place] criteria is possible/definite with blood cultures positive for endocarditis, fever, microbiologic evidence and predisposing heart condition. 2nd set of blood cultures shows no growth in 24 hours TTE shows no signs of endocarditis; Patient's loadmaster, Dr. Muse consulted, appreciate recommendations BETTY was completed on 06/[address] Desai and there is no visualization of any vegetation or signs of endocarditis Plan: ID consulted, appreciate recommendations Continue Rocephin 2 g IV daily Duonebs q6h for wheezing Repeat blood cultures show no growth within 48 hours Neuro check q4h West Nile serologies pending #Chronic venous hypertension #Chronic lower extremity ulcers #Chronic varicose veins #Chronic venous stasis Follows vascular and wound care 2x a week MRSA infections in past CT LE w/contrast shows: inflammation surrounding the left external iliac or common femoral veins without definite abscess. Diffuse edema in the subcutaneous fatty tissue lower legs Markedly thickened Achilles tendon with possible fluid collections on the left Testicular U/S shows: No testicular torsion or testicular mass. Bilateral benign testicular cysts. Benign left epididymal cysts Plan: Outpatient MRI left ankle without contrast follow-up Leg wound cultures grew back gram-positive cocci, pending speciation #History of HTN #History of valvular disease, severe aortic stenosis #s/p pacemaker 2018 #Pulmonary arterial hypertension Seen by Dr. Muse as his loadmaster Per ECHO report 05/2022: Normal LV size and function. Mild LVH. Estimated EF 55- 60%. Normal RV size and function. Estimated RVSP 73mmHg suggestive of moderate to severe pulmonary hypertension Severe calcific aortic stenosis with moderate aortic regurgitation. Mean aortic valve pressure gradient 54mmHg, vmax 4.7 m.s, FERNANDEZ 0.77 cmsqu. LA mildly dilated, RA moderately dilated Mitral annular calcification with trace mitral regurgitation. Mild to moderate Tricuspid regurgitation Suspicion for possible endocarditis as patient as GPC from 2/2 bottles as noted above Plan: Consulted patient's loadmaster Dr. Muse Continue spironolactone 25m po BID #Seizure, unknown etiology? Possible febrile seizure, as patient's body temperature reached 105.9 ?F Per signout, patient had a seizure which was witnessed by [employer] managing the patient in the ED Apparently, seizure lasted about 30 seconds Patient is not on any antiseizure medications Bedside nurse states there was no reports of seizure in the ED Plan: Seizure precautions Ativan 2 mg every 30 minutes for breakthrough seizures Will consider neurology consultation if seizures reported #History of BPH Pending med rec Plan: Payne in - draining yellow urine Continue home Flomax #Primary hepatocellular disease #21 mm fat-containing umbilical hernia Inflammation in the left groin Hospital Management: Lines: PIV Diet: Cardiac, renal Bowel: Senna GI prophylaxis: Not needed DVT prophylaxis: Heparin subq Dispo: IV abx for sepsis 2/2 skin wound, ID and cardiology consulted Code: Full Patient seen and examined with attending Dr. Art and senior resident Dr. Madeleine Baker, PGY-1 Attending Provider Attestation/Addendum Ara Mead[place], , attest that I was physically present for the carson portions of the service and evaluated the patient with the resident and I reviewed and discussed the case with the resident and agree with the resident's findings and plans of care as documented above Patient seen and evaluated this AM. Patient underwent BETTY today, which revealed No evidence of any valvular vegetations or any valvular endocarditis. No evidence of any vegetations on the pacemaker wires. Bubble study negative. No PFO or ASD. No evidence of any LA or LA thrombus. Normal LV size and function with an EF of around 55 to 60%. Normal RV size and function. Moderate to severe TR with moderately elevated RVSP of at least 50 to 55 mmHg. Severe calcified aortic valve stenosis with a peak velocity of 4.6 m/s and max PG of 91 mmHg and a mean PG of 54 mmHg. Endocarditis has been ruled out. Will f/u with ID recommendations. Patient remains afebrile.
--- NOTE | 2024-06-10 15:07 | PC.SS ---
Rounding Note: Patient participated with BETTY today. Patient receiving IV antibiotics. D/C within 1-2 days.
[2024-06-10 15:34] LABS: West Nile Virus Ab. IgG, Serum <1.30
[2024-06-11] VITALS (8 sets, daily range): BP systolic 132–146; BP diastolic 77–87; PULSE 60–66; RESP 19–97; TEMP 35.7–36.6; O2SAT 94–98; BMI 44.6
[2024-06-11 05:53] LABS: Basophils # (Auto) 0.1 Thou/mm3 (0.0-0.2); Basophils % (Auto) 0 % (0-2.5); Eosinophils # (Auto) 0.2 Thou/mm3 (0.0-0.5); Eosinophils % (Auto) 1 % (0-10); Hematocrit 38.8 % (41.0-53.0); Immature Granulocytes % (Auto) 4 % (0-0); Immature Granulocytes Auto 0.47 Thou/mm3 (0.00-0.00); Lymphocytes # (Auto) 0.8 Thou/mm3 (1.0-4.8); Lymphocytes % (Auto) 7 % (10-50); Mean Corpuscular HGB Conc 33.5 g/dl (31.0-37.0); Mean Corpuscular Hemoglobin 29.4 pg (25.0-35.0); Mean Corpuscular Volume 88 fL (80-100); Monocytes # (Auto) 1.2 Thou/mm3 (0.0-0.8); Monocytes % (Auto) 10 % (0-12); Neutrophils # (Auto) 9.4 Thou/mm3 (1.8-7.7); Neutrophils % (Auto) 78 % (37-80); Nucleated Red Blood Cell # 0.02 Thou/mm3 (0.00-0.00); Nucleated Red Blood Cell % 0 /100 WBC (0); Platelet Count 148 Thou/mm3 (140-440); RDW Standard Deviation 45.6 fL (35.1-43.9); Red Blood Count 4.42 Miln/mm3 (4.50-5.90); White Blood Count 12.1 Thou/mm3 (3.8-10.6)
[2024-06-11 06:32] LABS: West Nile Virus Ab. IgM, Serum <0.90
[2024-06-11 06:48] LABS: Alanine Aminotransferase 43 U/L (10-49); Albumin, Serum 3.2 gm/dL (3.4-4.8); Albumin/Globulin Ratio 1.1 (1.2-2.2); Alkaline Phosphatase 101 U/L (46-116); Anion Gap 10 (7-16); Aspartate Amino Transferase 50 U/L (0-34); BUN/Creatinine Ratio 22 Ratio (12-20); Blood Urea Nitrogen 24 mg/dL (9-23); Calcium 8.6 mg/dL (8.3-10.6); Calcium (Corrected) 9.2 mg/dL (8.5-10.1); Carbon Dioxide 21.6 mMol/L (20.0-31.0); Chloride 109 mMol/L (98-107); Creatinine (Component) 1.1 mg/dL (0.6-1.3); Estimated Creatinine Clearance 78.3 mL/min (>60); Globulin 2.8 gm/dL (2.3-3.5); Glucose 97 mg/dL (74-106); Magnesium 2.1 mg/dL (1.6-2.6); Osmolality,Calculated 285 (275-295); Sodium 141 mMol/L (136-145); eGFR > 60 See Note
--- NOTE | 2024-06-11 07:17 | EKG_ITS ---
[facility] Test Date: 2024-06-11 Pat Name: ROSLYN HENDERSON Department: Room: S263A Gender: Male Notary Public: ARIANA : 1955 Requested By: Vic Baker Order Number: [id number] Reading MD: Vic Baker Measurements Intervals [place] Rate: 60 P: AL: QRS: -61 QRSD: 154 T: 176 QT: 494 QTc: 494 Interpretive Statements ELECTRONIC VENTRICULAR PACEMAKER ABNORMAL RHYTHM ECG Compared to ECG 12/13/2022 11:16:47 No significant changes /store/S0/[id number].pdf
[2024-06-11 07:50] LABS: Troponin I 0.533 ng/mL (0.0-0.045)
--- NOTE | 2024-06-11 09:14 | ESPR_ITS ---
Subjective Subjective Interval history: swab cx done 06/08 noted. that strategy is not recommended. bacteremia tends to overrule swab cx. Exam Vital Signs Temp Pulse Resp BP Pulse Ox O2 Del Method O2 Flow Rate 97.8 F 60 21 H 133/82 H 95 Room Air 2 06/11/24 08:00 06/11/24 08:00 06/11/24 08:00 06/11/24 08:00 06/11/24 08:00 06/11/24 08:00 06/10/24 13:10 Narrative Exam fevers abated. mrsa not targeted Objective - Internal Medicine Labs 06/11/24 05:06 06/11/24 05:06 Labs: Laboratory Results - last 24 hr 06/07/24 06/11/24 09:46 05:06 WBC 12.1 H RBC 4.42 L Hgb 13.0 L Hct 38.8 L MCV 88 MCH 29.4 MCHC 33.5 RDW Std Deviation 45.6 H Plt Count 148 D Neut % (Auto) 78 Lymph % (Auto) 7 L [place] % (Auto) 10 Eos % (Auto) 1 Baso % (Auto) 0 Neut # (Auto) 9.4 H Lymph # (Auto) 0.8 L [place] # (Auto) 1.2 H Eos # (Auto) 0.2 Baso # (Auto) 0.1 Immature Gran # (Auto) 0.47 H Absolute Nucleated RBC 0.02 H Immature Gran % 4 H Nucleated RBC % 0 Sodium 141 Potassium 4.0 Chloride 109 H Carbon Dioxide 21.6 Anion Gap 10 BUN 24 H Creatinine 1.1 Estim Creat Clear Calc 78.3 eGFR > 60 BUN/Creatinine Ratio 22 H Glucose 97 Calculated Osmolality 285 Calcium 8.6 Corrected Calcium 9.2 Magnesium 2.1 Total Bilirubin 1.0 AST 50 H ALT 43 Alkaline Phosphatase 101 Troponin I 0.533 H* Total Protein 6.0 Albumin 3.2 L Globulin 2.8 Albumin/Globulin Ratio 1.1 L West Nile Virus IgG Ab <1.30 West Nile Virus IgM Ab <0.90 ABG Interpretation ABG results: 06/06/24 06/07/24 06/07/24 21:29 08:28 14:06 ABG pH 7.52 H 7.35 D 7.38 ABG pCO2 20 L 27 L 26 L ABG pO2 63 L 81 L 100 ABG HCO3 16 L 15 L 15 L ABG O2 Saturation 95 97 99 H ABG Base Excess -4 L -9 L -8 L Assessment & Plan A&P Narrative bacteremia with group A strep, rocephin ok, but need more data before treating for endocarditis.neg tte noted. need macarena. htn, bph, ckd all noted. suggest macarena as echo neg will check in again on Friday looks like repeat bc neg so far from 06/07 pm. (it is 06/09 today) i you have a burning desire to cover the superficial germs on swab cx, then add doxy 100 bid po to rocephin. will check in friday if he remains. if macarena neg, then rx to be possibly po for 1 week if macarena pos then rx to be 6 weeks from 06/07 Time Spent With Patient Time: Total time spent is greater than 50% in coordination of care (as documented) at patient's floor/unit and/or counseling patient:
[2024-06-11] MEDS: ESCITALOPRAM OXALATE 10 MG TABLET 20 MG PO (09:24)
[2024-06-11] MEDS: ASPIRIN 81 MG CHEW PO (09:24)
[2024-06-11] MEDS: cefTRIAXone/D5w 2gm 2 GM/50 ML BAG IV (09:25)
[2024-06-11] MEDS: SENNA TABLET 1 TAB PO (09:25)
[2024-06-11] MEDS: HEPARIN SOD INJ 5000 UNIT/ML VIAL SC (09:25)
[2024-06-11] MEDS: SPIRONOLACTONE 25 MG TABLET PO (09:25)
[2024-06-11] MEDS: amLODIPine BESYLATE 5 MG TABLET PO (09:26)
[2024-06-11] MEDS: TAMSULOSIN HCL 0.4 MG CAPSULE PO (09:26)
[2024-06-11 11:16] LABS: Troponin I 0.465 ng/mL (0.0-0.045)
[2024-06-11] MEDS: METOPROLOL TARTRATE 25 MG TABLET PO (11:27)
--- NOTE | 2024-06-11 11:28 | ESDS_ITS ---
<Statement entered by Ara Art DO - 06/12/24 09:12> I, Ara Art DO, attest that I was physically present for the carson portions of the service and evaluated the patient with the resident and I reviewed and discussed the case with the resident and agree with the resident's findings and plans of care as documented above Planned Discharge Date 06/11/24 DS: Providers Provider Date of admission: 06/07/24 04:20 Primary care physician: Physician No Primary/Family Admitting Provider: Sal Stack MD Attending Provider on Admission: Ara Art DO Consults: 06/07/24 09:48 Referral Wound Care Routine Comment: 06/07/24 09:55 Consult to Infectious Diseases Routine Comment: GPC bacteremia Consulting Provider: Giovany Vickers 06/07/24 14:31 Consult to Cardiology Routine Comment: Severe , PAH, Possible endocarditis Consulting Provider: Sven Muse 06/08/24 01:05 Referral Infection Control Routine Comment: Reason for Infection Control Referral: Patient In Isolation 06/08/24 02:12 Referral Registered Dietitian Routine Comment: wound 06/09/24 09:11 Referral Physical Therapy Routine Comment: Physician Instructions: 06/09/24 15:28 Consult to Cardiology Routine Comment: R/o endocarditis, [place] Criteria High Consulting Provider: Layo Desai Attending Provider on DC: Vic Baker MD Discharging Provider: Vic Baker MD DS: Diagnosis Problem List Completed Was Problem List Reviewed/Reconciled?: Yes Hospital Course Hospital Course Hospital course: 69-year-old male with past medical history of chronic venous hypertension, bilateral lower extremity ulcers, valvular heart disease status post pacemaker placement in 2018, hypertension, CHF, history of CVA, BPH, obesity presented to the ED on 06/07 for fever, acute encephalopathy and lethargy. In the ED, patient was febrile with a temperature of 130 ?F, bradycardic, tachypneic with a respiratory rate of 28, hypertensive and respiratory of 98 on 2 L nasal cannula. Patient was found to have WBC of 20, lactic acid of 3.3, urinalysis showed some proteinuria and hematuria and chest x-ray showed mild heart failure. Head CT was negative for any acute process. Patient was admitted for sepsis with evidence of endorgan perfusion derangement with elevated lactic acid. Blood cultures were ordered which showed beta-hemolytic Streptococcus a from both sets. Since the patient has extensive history of valvular heart disease with severe aortic stenosis and PAH, his burlapper Dr. Muse was consulted who agreed to follow him and a TTE was ordered which was grossly unremarkable. There was high suspicion for endocarditis with [place] criteria noted as such, Dr. Desai, cardiology, was consulted for BETTY assessment. Patient was on IV antibiotics at this time and infectious disease was also consulted. ID recommended TTE which ended up being negative. Patient did have an episode of V. tach which lasted 25 beats, troponin and EKG were ordered. Troponin was slightly elevated but on repeat was downtrending. EKG did not show any concerning ST changes but there were changes made to the patient's blood pressure medications. Per cardiology recommendations patient is safe to discharge with antibiotic regimen for sepsis likely secondary to skin infection/cellulitis for about 1 week as recommended by infectious disease. Patient will be discharged with the following strict instructions. Please take doxycycline 100mg by mouth twice a day for a total of 10 days Please take metoprolol SUCCINATE 50mg by mouth daily for blood pressure Stop taking metoprolol TARTRATE and clonidine Continue taking all your home medications as prescribed Follow-up with your PCP within 1-2 weeks Follow-up with Dr. Posada (Vascular Surgery) and wound care Follow-up with Dr. Muse (Cardiology) If your symptoms worsen or if you develop new chest pain, fever/chills, shortness of breath or severe weakness - please come back to the ED immediately. Hospital Diagnosis: #Acute encephalopathy, improving #Sepsis secondary to GPC bacteremia #Cellulitis #Lactic acidosis, improving #Chronic venous hypertension #Chronic lower extremity ulcers #Chronic varicose veins #Chronic venous stasis #History of HTN #History of valvular disease, severe aortic stenosis #Pacemaker 2018 #Pulmonary arterial hypertension #History of BPH #Primary hepatocellular disease #21 mm fat-containing umbilical hernia Inflammation in the left groin Vic Baker, PGY-1 Status at Discharge Overall status at discharge: patient is progressing back to baseline Time Spent with Patient Time attestation: Total time spent providing and/or coordinating discharge services: 45 minutes Time spent: Greater than 30 minutes Quality: Stroke Pt Provided Written Stroke Discharge Instructions: No Home Health Home Health Referral Orders: 06/11/24 09:31 Home Health Referral Routine Reason For Exam: bacteremia Home-Bound The patient must either because of illness or injury, need the aid of supportive devices such as crutches, canes, wheelchairs, and walkers; the use of special transportation; or the assistance of another person in order to leave their place of residence; OR have a condition such that leaving his or her home is medically contraindicated. In addition, the patient also meets the following criteria: patient is normally unable to leave the home and leaving home requires considerable taxing effort. Addendum to Home Health Certification Practitioner's Certification: I certify that the patient has been under my care in the hospital and the care of attending physician (see below). We had a [id number] encounter on (see date below). My clinical findings indicate that the patient is home bound per the above criteria and the Home Health Services noted in these orders are medically necessary. The primary reason for the [id number] encounter is related to the fact that the patient requires home health services. Date Certifying Tfbn-[id number] Physician Encounter: 06/08/24 Physician's Name who will Assume Oversight for HH Services: Physician No Primary/Family EQUINE SCIENCE INSTRUCTOR - Community Resources: No PT to Evaluate: Yes PT to evaluate and provide a treatmnet plan to increase patient's mobility and strength. Wound Care: Yes Home Health RN - Wound Care Order: as per wound care instructions IV Therapy: No RN Safety Evaluation: Yes RN to evaluate and create a plan of care that will produce positive outcomes. Palliative Treatment: No Palliative treatment and evaluate the need for hospice. Home Health Aide - Personal Care: Yes Home Health Aide to assist with any ADL's. Exam Vital Signs Temp Pulse Resp BP Pulse Ox O2 Del Method O2 Flow Rate 97.8 F 60 21 H 133/82 H 95 Room Air 2 06/11/24 08:00 06/11/24 09:26 06/11/24 08:00 06/11/24 09:26 06/11/24 08:00 06/11/24 08:00 06/10/24 13:10 Narrative Exam Physical Exam: General: Awake, obese male, answers questions appropriately, appears stated age HEENT: Moist mucous membranes, conjunctiva clear, EOMI, PERRLA Cardiovascular: III/ systolic ejection murmur noted on left sternal border, radial pulses +2 bilat, RRR Pulmonary: On room air. No crackles/rales, wheezing or rhonchi GI: No tenderness to light or deep palpitation, no guarding, rigidity, rebound tenderness or distension : Payne catheter present, yellow urine noted Extremities: Chronic venous stasis, multiple ulcers located in LE including plantar foot, achilles tendon Neuro: AAOx2, no nuchal rigidity appreciated, Kernig and Brudzinski test negative, able to move extremities x 4, no focal neurologic deficits noted Discharge Plan Plan Patient Disposition: Home w/HOME HEALTH Patient condition on transfer: Stable Care Plan Goals: Please take doxycycline 100mg by mouth twice a day for a total of 10 days Please take metoprolol SUCCINATE 50mg by mouth daily for blood pressure Stop taking metoprolol TARTRATE and clonidine Continue taking all your home medications as prescribed Follow-up with your PCP within 1-2 weeks Follow-up with Dr. Posada (Vascular Surgery) and wound care Follow-up with Dr. Muse (Cardiology) If your symptoms worsen or if you develop new chest pain, fever/chills, shortness of breath or severe weakness - please come back to the ED immediately. Prescriptions/Referrals Prescriptions/Med Rec: New doxycycline monohydrate 100 mg capsule 100 mg PO BID 10 Days Qty: 20 0RF metoprolol succinate 50 mg tablet extended release 24 hr 50 mg PO QDAY 30 Days Qty: 30 0RF Continued nitroglycerin [Nitrostat] 0.4 MG tablet, sublingual 0.4 mg SL PRN PRN (Reason: CHEST TIGHTNESS) Qty: 0 escitalopram oxalate 20 mg tablet 20 mg PO QDAY Patient Comments: TAKE 1 TABLET BY MOUTH EVERY DAY FOR 90 DAYS amlodipine 5 mg Tablet 5 mg PO QDAY tamsulosin [Flomax] 0.4 mg Capsule 0.4 mg PO QDAY aspirin 81 mg Tablet,Chewable 81 mg PO QDAY spironolactone 25 mg Tablet 25 mg PO BID hydrocodone-acetaminophen 10-325 mg tablet 1 tab PO BID PRN (Reason: pain) Patient Comments: TAKE 1 TABLET BY MOUTH TWICE A DAY NEEDED FOR PAIN Discontinued clonidine HCl 0.2 mg Tablet 0.2 mg PO BID metoprolol tartrate 50 mg Tablet 50 mg PO BID Referrals: Sven Muse MD [Physician] - Adams Posada MD [Physician] - Doc - Wound Care,Generic [Physician] - No Primary/Family,Physician [Primary Care Provider] - Patient/Caregiver Discharge Instructions Education Materials: Sepsis, Discharge Instructions for Cellulitis, Hypertension Dc, MRSA Infec Print Language: Yoruba Stand Alone Forms: Fina Award Info., Patient Portal Info Letter Discharge Order Discharge Orders: Discharge (Routine); Ordered 06/11/24 Ordered By: Vic Baker Quality Discharge Quality Measures VTE prophylaxis
--- NOTE | 2024-06-11 12:07 | CHAP ---
Patient was visited by the Spiritual Care Volunteer who prayed for them. (Volunteer was in the hospital from 11:00-12:07).
--- NOTE | 2024-06-11 13:59 | ESPR_ITS ---
RE: ROSLYN HENDERSON : 1955 DATE OF SERVICE: 06/11/2024 S: Mr. Henderson is resting fairly comfortably in bed. The patient is breathing well. Denies any complaints of fever or chills. Denies any complaint of chest pain. Denies any complaints of skipped beats or palpitation. O: Vital Signs: Blood pressure today is 146/86, the pulse rate is 60, respirations are 20, temperature is 96.2, the oximetry saturation on room air is 97%. Heart: Ejection systolic murmur of aortic stenosis. Lungs: Clear to percussion and auscultation. Extremities: Trace pedal edema is noted. Laboratory Data: The patient had BETTY done yesterday, which did not show any evidence of endocarditis. The patient's lab work this morning showed WBC count is better than yesterday, though still mildly elevated and is 12,100, hemoglobin is 13 grams with a hematocrit of 38.8. The patient's BUN today is 24, creatinine 1.1, potassium level is 4.0. The patient's troponin level earlier today was 0.533 and repeat troponin level is on the downtrend and is 0.465. P: The patient is for possible discharge home today on antibiotic therapy. All present medications will be continued and the patient will be seen for cardiac follow-up visit in my office as an outpatient. DT: 13:26:02 TT: 13:58:00 Ref: [id number] - TID: [id number]
--- NOTE | 2024-06-11 14:28 | PC.SS ---
Rounding note: plan is to d/c the patient home health today.
--- NOTE | 2024-06-14 11:52 | PC.CC ---
Pt is booked with [facility] pending BRAYAN
--- NOTE | 2024-06-16 09:16 | PC.CM ---
Dariela sent HH referral on 06/12/2024. [facility] accepted the pt. and it was booked. I reach out to [facility] today for start of care date. Dot Ivory from [facility] responded on [employer], resume of care date was 06/15/24.
== END 2024-06-11 15:50 | disposition home health service (06) | DRG 871 ==
LOC: SERX 23:00 → SERHOLD 06-07 04:58 → S2NX 06-07 22:41
PROVIDERS: Internal Medicine Cardiovascular Disease; Nurse Practitioner Family; Student in an Organized Health Care Education/Training Program; Admitting Provider Internal Medicine; Emergency Provider Emergency Medicine; Visit Provider Internal Medicine
PROC: (CPT 93312; principal; 2024-06-10 12:45)
DX: A40.0 Sepsis due to streptococcus, group A (principal); G93.41 Metabolic encephalopathy; E87.20 Acidosis, unspecified; N17.9 Acute kidney failure, unspecified; L03.90 Cellulitis, unspecified; I13.0 Hypertensive heart and chronic kidney disease with heart failure and stage 1 through stage 4 chronic kidney disease, or unspecified chronic kidney disease; Z68.41 Body mass index [BMI] 40.0-44.9, adult; L97.929 Non-pressure chronic ulcer of unspecified part of left lower leg with unspecified severity; L97.919 Non-pressure chronic ulcer of unspecified part of right lower leg with unspecified severity; R65.20 Severe sepsis without septic shock; I27.21 Secondary pulmonary arterial hypertension; N18.32 Chronic kidney disease, stage 3b; I87.309 Chronic venous hypertension (idiopathic) without complications of unspecified lower extremity; N44.2 Benign cyst of testis; K42.9 Umbilical hernia without obstruction or gangrene; G40.909 Epilepsy, unspecified, not intractable, without status epilepticus; E66.9 Obesity, unspecified; I73.9 Peripheral vascular disease, unspecified; N40.0 Benign prostatic hyperplasia without lower urinary tract symptoms; E78.5 Hyperlipidemia, unspecified; I08.3 Combined rheumatic disorders of mitral, aortic and tricuspid valves; I87.8 Other specified disorders of veins; I50.9 Heart failure, unspecified; Z95.0 Presence of cardiac pacemaker; Z86.73 Personal history of transient ischemic attack (TIA), and cerebral infarction without residual deficits; Z79.82 Long term (current) use of aspirin; Z86.14 Personal history of Methicillin resistant Staphylococcus aureus infection
CPT/HCPCS: 36415; 36600; 70450; 71045; 71250; 73700; 74176; 76870; 80053; 80061; 80069; 80202; 80307; 81001; 82550; 82803; 83036; 83605; 83735; 84100; 84145; 84443; 84484; 85025; 85610; 85730; 86480; 86788; 86789; 87040; 87070; 87077; 87081; 87086; 87186; 87205; 87400; 87651; 87811; 93005; 93306; 93312; 94640; 94664; 96361; 96365; 96366; 96367; 96375; 97162; 99152; 99285; A9270; J0131; J0133; J0290; J0696; J1643; J2060; J2250; J2405; J2543; J3010; J3370; J3371; J3372; J3475; J7030; J7050; J7120

== ENCOUNTER 2024-06-20 07:08 | Inpatient (IN) | payer MEDICARE, SELFPAY ==
[2024-06-20] VITALS (10 sets, daily range): BP systolic 130–158; BP diastolic 61–79; PULSE 59–89; RESP 16–27; TEMP 36.1–37.2; O2SAT 94–99; BMI 42.5
--- NOTE | 2024-06-20 07:24 | XR_ITS ---
Examination: Testicular sonography complete. TECHNIQUE: Fan scale sonographic images testes, assessment arterial and portal venous outflow Doppler spectrum analysis color flow analysis Exam date and time: June 20, 2024, 0739 hours INDICATIONS: Bilateral testicular pain and swelling beginning 3 weeks ago. FINDINGS: Right testis is 4.1 cm epididymis 3.4 cm Epididymal cysts, 3 mm Arterial flow to the testicle 5 mm testicular cyst No testicular solid mass Severe scrotal wall edema 4.0 cm Mild hydrocele. Left testis is 4.3 cm epididymis 3.6 cm Epididymal cysts, 10 mm, 6 mm Arterial flow to the testicle. No solid testicular mass Tubular ectasia mid lateral testis Severe edema scrotal wall 3.6 cm Mild hydrocele Bilateral microlithiasis IMPRESSION: No testicular torsion Bilateral epididymitis with epididymal cysts Severe bilateral scrotal wall edema
--- NOTE | 2024-06-20 07:25 | XR_ITS ---
Examination: AP chest single view TECHNIQUE: AP portable upright chest single view Exam date time: June 20, 2024 0729 hours Comparison June 06, 2024 INDICATIONS: Shortness of breath today with lower extremity edema and swelling FINDINGS: Mild prominence of frontal Transvenous dual-chamber bipolar cardiac lead satisfactory position Moderate vascular congestion Subtle septal edema at the lung bases Lobar pneumonia Moderate osteopenia IMPRESSION: Suspicious for early heart failure
--- NOTE | 2024-06-20 07:25 | PD.EDRME ---
Rapid Medical Screening Exam RME Arrival date/time: 06/20/24 07:08 69-year-old male presents to the emergency department today for complaints of testicular swelling and lower extremity swelling patient had a recent admission for the same Chief Complaint: General Adult/Misc Complain Vital signs: Vital Signs Temperature 98.3 F 06/20/24 07:19 Pulse Rate 89 06/20/24 07:19 Respiratory Rate 18 06/20/24 07:19 Blood Pressure 155/79 H 06/20/24 07:19 Pulse Oximetry (%) 99 06/20/24 07:19 Oxygen Delivery Method Room Air 06/20/24 07:19
[2024-06-20 08:50] LABS: Lactate (Lactic Acid) 1.9 mMol/L (0.4-2.0)
[2024-06-20 08:56] LABS: Basophils # (Auto) 0.1 Thou/mm3 (0.0-0.2); Basophils % (Auto) 1 % (0-2.5); Eosinophils # (Auto) 0.2 Thou/mm3 (0.0-0.5); Eosinophils % (Auto) 2 % (0-10); Hematocrit 37.8 % (41.0-53.0); Hemoglobin 12.2 g/dL (13.5-16.0); Immature Granulocytes % (Auto) 1 % (0-0); Immature Granulocytes Auto 0.06 Thou/mm3 (0.00-0.00); Lymphocytes # (Auto) 0.6 Thou/mm3 (1.0-4.8); Lymphocytes % (Auto) 6 % (10-50); Mean Corpuscular HGB Conc 32.3 g/dl (31.0-37.0); Mean Corpuscular Hemoglobin 29.3 pg (25.0-35.0); Mean Corpuscular Volume 91 fL (80-100); Monocytes # (Auto) 0.9 Thou/mm3 (0.0-0.8); Monocytes % (Auto) 8 % (0-12); Neutrophils # (Auto) 8.9 Thou/mm3 (1.8-7.7); Neutrophils % (Auto) 83 % (37-80); Nucleated Red Blood Cell % 0 /100 WBC (0); Platelet Count 282 Thou/mm3 (140-440); Red Blood Count 4.17 Miln/mm3 (4.50-5.90); White Blood Count 10.7 Thou/mm3 (3.8-10.6)
--- NOTE | 2024-06-20 09:11 | PC.NURSE ---
Patient seen in Room 16, came in for c/o cellullitis to legs that extends to scrotum. Per patient, cellulitis appeared 3 weeks ago which he was seen in the ED and sent home. He was RX antibiotics and water pills for swelling but stated that they are not working, when he ambulates he states that his thighs rub together and causes pain. Voiding is also a concern for patient, he reported dribbling when attempting to void. VSS pt denies any pain at this time. Bilateral legs are currently wrapped and seen at the wound clinic along with home health to treat wounds on legs.
[2024-06-20 09:44] LABS: Collection Type, Urine Clean Catch
[2024-06-20 09:44] LABS: B-Type Natriuretic Peptide 365 pg/mL (0-100)
[2024-06-20 10:04] LABS: Bilirubin,Urine Negative (Negative); Blood,Urine Negative (Negative); Clarity,Urine Clear (Clear/Hazy); Color,Urine Lt-Yellow (Lt Yel-Yel); Culture Indicated,Urine Not Indicated; Glucose, Urine Negative (Negative); Ketones,Urine Negative (Negative); Leukocyte Esterase,Urine Negative (Negative); Nitrite,Urine Negative (Negative); PH,Urine 6.5 (5.0-7.0); Protein,Urine Trace (Neg - Trace); RBC,Urine 1 /hpf (0-3); Specific Gravity,Urine 1.014 (1.001-1.035); Squamous Epithelial Cell,Urine < 1 /hpf (0-5); Urobilinogen,Urine Negative mg/dL (0.0-1.0); WBC,Urine 1 /hpf (0-5)
[2024-06-20 10:10] LABS: Alanine Aminotransferase 14 U/L (10-49); Albumin, Serum 3.5 gm/dL (3.4-4.8); Albumin/Globulin Ratio 0.9 (1.2-2.2); Alkaline Phosphatase 90 U/L (46-116); Anion Gap 8 (7-16); Aspartate Amino Transferase 23 U/L (0-34); BUN/Creatinine Ratio 12 Ratio (12-20); Bilirubin,Total 1.1 mg/dL (0.3-1.2); Blood Urea Nitrogen 14 mg/dL (9-23); Calcium 8.9 mg/dL (8.3-10.6); Calcium (Corrected) 9.3 mg/dL (8.5-10.1); Carbon Dioxide 23.8 mMol/L (20.0-31.0); Chloride 105 mMol/L (98-107); Creatinine (Component) 1.2 mg/dL (0.6-1.3); Estimated Creatinine Clearance 73.3 mL/min (>60); Globulin 3.8 gm/dL (2.3-3.5); Glucose 89 mg/dL (74-106); Osmolality,Calculated 273 (275-295); Potassium 4.1 mMol/L (3.4-5.1); Procalcitonin 0.08 ng/ml (0.0-0.49); Sodium 137 mMol/L (136-145); Total Protein 7.3 gm/dL (5.7-8.2); eGFR > 60 See Note
--- NOTE | 2024-06-20 10:19 | PD.EDADULT ---
ED General RME/HPI General Chief complaint: General Adult/Misc Complain Stated complaint: SEVERE CASE OF CELLULITIS BLE/TESTICLES X 3 WKS Arrival date/time: 06/20/24 07:08 RME / HPI RME / HPI narrative: 06/20/24 07:08 69-year-old male presents to the emergency department today for complaints of testicular swelling and lower extremity swelling patient had a recent admission for the same DR. MONTANEZ MAIN ED EVALUATION: 69 year old male with past medical history significant for chronic venous hypertension, bilateral lower extremity ulcers, valvular heart disease status post pacemaker placement in 2018, hypertension, CHF, history of CVA, BPH, obesity presents to the Emergency Department accompanied by his son with complaint of scrotal erythema, swelling, and pain; that has been there since he was last hospitalized but now it is extending to his groin area. After patient was discharged on lasix and doxycycline antibiotic but patient states his swelling is worsening. Reviewed last admission discharge dated 06/12/24, patient admitted for the following: Fever, JEANETTE (acute kidney injury), Cellulitis, Severe sepsis, Acute encephalopathy, Seizure. Related Data Home Medications ?Medication ?Instructions ?Recorded ?Confirmed nitroglycerin 0.4 mg sublingual 0.4 mg SL PRN PRN CHEST TIGHTNESS 12/20/16 06/20/24 tablet (Nitrostat) #0 tabs amlodipine 5 mg tablet 5 mg PO QDAY 06/04/22 06/20/24 aspirin 81 mg chewable tablet 81 mg PO QDAY 06/04/22 06/20/24 escitalopram oxalate 20 mg tablet 20 mg PO QDAY 06/04/22 06/20/24 tamsulosin 0.4 mg capsule (Flomax) 0.4 mg PO QDAY 06/04/22 06/20/24 spironolactone 25 mg tablet 25 mg PO BID 07/03/23 06/20/24 hydrocodone 10 mg-acetaminophen 1 tab PO BID PRN pain 06/07/24 06/20/24 325 mg tablet furosemide 40 mg tablet 40 mg PO BID 06/20/24 06/20/24 Previous Rx's ?Medication ?Instructions ?Recorded doxycycline monohydrate 100 mg 100 mg PO BID 10 days #20 caps 06/11/24 capsule metoprolol succinate 50 mg 50 mg PO QDAY 1 month #30 tabs 06/11/24 tablet,extended release 24 hr Allergies Allergy/AdvReac Type Severity Reaction Status Date / Time latex Allergy Rash Verified 06/20/24 07:13 Review of Systems Review of Systems Systems Reviewed: All systems reviewed, normal except as documented Past Medical History Social History SMOKING STATUS: Never smoker SUBSTANCE USE: does not use ALCOHOL: Never Past Medical History Comments PMH COMMENT: chronic venous hypertension, bilateral lower extremity ulcers, valvular heart disease status post pacemaker placement in 2018, hypertension, CHF, history of CVA, BPH, obesity ED Exam Narrative Physical exam: GENERAL APPEARANCE: alert and oriented x 4, well-developed, well-nourished, no acute distress VITALS: All vitals were reviewed and the pulse ox is 97% on room air, which is normal according to my interpretation. HEENT: Normocephalic, atraumatic; pupils equal, round, reactive to light; EOMI; mucous membranes pink, moist; oropharynx clear NECK: Supple LUNGS: CTABL; no wheezes, no rales, no rhonchi HEART: Regular rate, regular rhythm; normal S1, S2; no murmurs ABDOMEN: non distended; normal BS; soft, no tenderness, no guarding, no rebound; no masses, no organomegaly, no hernia BACK: no CVA tenderness EXTREMITIES: atraumatic; : scrotal erythema, swelling and tenderness that is extending to his groin area NEUROLOGIC: awake; alert and oriented x4; cranial nerves II-XII grossly intact; no focal sensory or motor deficits PSYCHIATRIC: appropriate mood and affect SKIN: warm, dry, normal color; no rashes Course Quality Measures none Orders Category Date Time Status Referral - Hospital Coordinator Stat Cons 06/20/24 10:23 Active US testicular Stat Exams 06/20/24 07:24 Completed XR chest 1V portable Stat Exams 06/20/24 07:25 Completed BNP [B-Type Natriuretic Peptide] Stat Lab 06/20/24 08:35 Completed Blood Culture (Lab) Stat Lab 06/20/24 08:10 Received CBC Stat Lab 06/20/24 08:35 Completed Comprehensive Metabolic Panel Stat Lab 06/20/24 08:35 Completed Lactate (Lactic Acid) Stat Lab 06/20/24 08:35 Completed Procalcitonin Stat Lab 06/20/24 08:35 Completed UA, C/S IF [Urinalysis, C/S if Indicated] Stat Lab 06/20/24 09:15 Completed Nystatin Pwd [Nystop Pwd] Med 06/20/24 11:18 Discontinued See Dose Instructions TOP X1 ONE Piper/Tazo 3.375 gm Premix [Zosyn] Med 06/20/24 09:58 Discontinued 3.375 gm in 50 ml IV X1 Vancomycin/Ns 1 gm Ivpb 200 ml Med 06/20/24 09:58 Discontinued IV X1 Vital Signs Vital signs: Vital Signs Temperature 98.3 F 06/20/24 07:19 Pulse Rate 89 06/20/24 07:19 Respiratory Rate 18 06/20/24 07:19 Blood Pressure 155/79 H 06/20/24 07:19 Pulse Oximetry (%) 99 06/20/24 07:19 Oxygen Delivery Method Room Air 06/20/24 07:19 [facility] Patient data External records reviewed:: [facility] previous records (Reviewed last admission discharge dated 06/12/24, patient admitted for the following: Fever, JEANETTE (acute kidney injury), Cellulitis, Severe sepsis, Acute encephalopathy, Seizure) Clinical information provided by:: patient and family (son) Social determinants that could affect healthcare access:: none Patient has the following chronic illnesses:: chronic venous hypertension, bilateral lower extremity ulcers, valvular heart disease status post pacemaker placement in 2018, hypertension, CHF, history of CVA, BPH, obesity How is presenting disease/condition affected by chronic disease/condition?: exacerbated by Evaluation data The following diagnostics were reviewed and interpreted by me:: lab results and radiology exam(s) Lab and/or radiology exams considered but not ordered:: none Interpretation Summary: Procedure(s): XR chest 1V portable Accession Number(s): [id number] cc: Harika (HAYDE),Nigel LOCK; Carlos Neff MD; Suad Jones MD~ Examination: AP chest single view TECHNIQUE: AP portable upright chest single view Exam date time: June 20, 2024 0729 hours Comparison June 06, 2024 INDICATIONS: Shortness of breath today with lower extremity edema and swelling FINDINGS: Mild prominence of frontal Transvenous dual-chamber bipolar cardiac lead satisfactory position Moderate vascular congestion Subtle septal edema at the lung bases Lobar pneumonia Moderate osteopenia IMPRESSION: Suspicious for early heart failure Dictated By: Carlos Neff MD Procedure(s): US testicular Accession Number(s): [id number] cc: Harika (HAYDE),Nigel LOCK; Carlos Neff MD; Suad Jones MD~ Examination: Testicular sonography complete. TECHNIQUE: Fan scale sonographic images testes, assessment arterial and portal venous outflow Doppler spectrum analysis color flow analysis Exam date and time: June 20, 2024, 0739 hours INDICATIONS: Bilateral testicular pain and swelling beginning 3 weeks ago. FINDINGS: Right testis is 4.1 cm epididymis 3.4 cm Epididymal cysts, 3 mm Arterial flow to the testicle 5 mm testicular cyst No testicular solid mass Severe scrotal wall edema 4.0 cm Mild hydrocele. Left testis is 4.3 cm epididymis 3.6 cm Epididymal cysts, 10 mm, 6 mm Arterial flow to the testicle. No solid testicular mass Tubular ectasia mid lateral testis Severe edema scrotal wall 3.6 cm Mild hydrocele Bilateral microlithiasis IMPRESSION: No testicular torsion Bilateral epididymitis with epididymal cysts Severe bilateral scrotal wall edema Dictated By: Carlos Neff MD Medications Medications considered but not ordered:: none Medication administrations:: Medication Administration History Acetaminophen (Acetaminophen 325 Mg Tablet) 650 mg PO Q6H PRN PRN Reason: Pain 1-3 and/or Fever >100.1 Stop: 07/20/24 13:14 Hydrocodone Bitart/Acetaminophen (Hydrocodone/Apap 10/325 Tab) 1 tab PO Q4HR PRN PRN Reason: PAIN SCALE 7-10 (Severe Stop: 06/25/24 13:14 Bumetanide (Bumetanide Inj 0.25 Mg/Ml Vial 10 Ml) 2 mg IVP DAILY ISHA Stop: 07/20/24 13:29 Escitalopram Oxalate (Escitalopram Oxalate 10 Mg Tablet) 20 mg PO QDAY ISHA Stop: 07/21/24 08:59 Heparin Sodium (Porcine) (Heparin Sod Inj 5000 Unit/Ml Vial) 5,000 unit SC Q12HR [facility] Stop: 07/04/24 20:59 Cefepime HCl 2 gm/ Sodium (Chloride) 50 mls @ 100 mls/hr IV Q12HR [facility] Stop: 06/27/24 13:18 Last Admin: 06/20/24 13:49 Dose: 100 mls/hr Documented By: CHAU Vancomycin HCl/Dextrose (Vancomycin/D5w 1,250 Mg Ivpb) 250 mls @ 120 mls/hr IV Q12H [facility] Stop: 06/27/24 21:59 Ondansetron HCl (Ondansetron Inj 2 Mg/Ml Inj 2 Ml) 4 mg IV Q6H PRN; Protocol PRN Reason: NAUSEA OR VOMITING Stop: 07/20/24 13:14 Oxycodone/Acetaminophen (Oxycodone/Apap 5/325 Tablet) 1 tab PO Q6H PRN PRN Reason: PAIN SCALE 4-6 (Moderate Stop: 06/25/24 13:14 Pharmacy Consult (Vancomycin Pharmacy To Dose 1 Each Each) 1 each IV QDAY PRN PRN Reason: CONSULT Stop: 07/21/24 08:59 Sennosides (Senna Tablet) 1 tab PO QDAY [facility]; Protocol Stop: 07/21/24 08:59 Spironolactone (Spironolactone 25 Mg Tablet) 25 mg PO BID [facility] Stop: 07/20/24 20:59 Tamsulosin HCl (Tamsulosin Hcl 0.4 Mg Capsule) 0.4 mg PO QDAY [facility] Stop: 07/21/24 08:59 Discontinued Medications Bumetanide (Bumetanide Inj 0.25 Mg/Ml Vial 4 Ml) 2 mg IVP QDAY [facility] Stop: 07/20/24 13:29 Vancomycin/Sodium Chloride (Vancomycin/Ns 1 Gm Ivpb) 200 mls @ 120 mls/hr IV X1 ONE Stop: 06/20/24 11:37 Last Infusion: 06/20/24 13:22 Dose: Infused Documented By: Admin: 06/20/24 10:55 Dose: 120 mls/hr Documented By: CHAU Piperacillin/Tazobactam/Dextrose (Zosyn) 3.375 gm in 50 mls @ 100 mls/hr IV X1 ONE Stop: 06/20/24 10:27 Last Infusion: 06/20/24 11:40 Dose: Infused Documented By: Admin: 06/20/24 10:54 Dose: 100 mls/hr Documented By: CHAU Nystatin (Nystatin Pwd 15 Gm Btl) 0 gm TOP X1 ONE Stop: 06/20/24 11:19 Last Admin: 06/20/24 13:16 Dose: 15 gm Documented By: CHAU see above Consultations Consultation(s) initiated? (list below): Yes Consultation #1 (Physician, Specialty, Details): Discussed test HPI, PMHx, lab, radiology results and/or management with Dr. Owen. Denies need for surgery. Recommends antibiotics. Time: 11:16 Consultation #2 (Physician, Specialty, Details): Discussed test HPI, PMHx, lab, radiology results and/or management with hospitalist. Will evaluate for possible admission. Time: 11:40 Consultation #3 (Physician, Specialty, Details): 1150: Residents working with hospitalist deny admission at this time and request urology services. 1159: I discussed the case transfer nurse from [facility] and she states that there is no bed but to try [facility]. 1304: Discussed test HPI, PMHx, lab, radiology results and/or management with urologist Dr. Yates from [facility] and he states there is no need to transfer the patient. Recommends admission here and antibiotics. 1315: Discussed test HPI, PMHx, lab, radiology results and/or management with hospitalist. Will admit for further evaluation and management. Accepts patient for admission. Diagnosis Differential Diagnosis ED Complaint MDM: sepsis, cellulitis, scrotal swelling Most likely diagnosis given after review of the tests above:: scrotal cellulitis Admission Indicated Admission indicated?: indicated Explain why admission is indicated or not indicated:: Diagnoses meet admission criteria. Admission Request Was there a request for admission?: Yes Admission Attestation Admission request attestation: Discussed case with [] from Hospitalist service regarding admission. Discussed patients ED course, exam findings, labs, and radiology results. The Hospitalist [agrees,declines] to accept the patient for admission. Disposition Plan Disposition Plan: Admit Medical Decision Making MDM Narrative MDM Narrative: I, Verona Ayoub, am scribing for and in the presence of Dr. Montanez. Differential Diagnosis Differential Diagnosis: sepsis, cellulitis, scrotal swelling Lab Data 06/20/24 08:35 06/20/24 08:35 Labs: Lab Results 06/20/24 06/20/24 Range/Units 08:35 09:15 WBC 10.7 H (3.8-10.6) Thou/mm3 RBC 4.17 L (4.50-5.90) Miln/mm3 Hgb 12.2 L (13.5-16.0) g/dL Hct 37.8 L (41.0-53.0) % MCV 91 (80-100) fL MCH 29.3 (25.0-35.0) pg MCHC 32.3 (31.0-37.0) g/dl RDW Std Deviation 48.0 H (35.1-43.9) fL Plt Count 282 D (140-440) Thou/mm3 Neut % (Auto) 83 H (37-80) % Lymph % (Auto) 6 L (10-50) % [place] % (Auto) 8 (0-12) % Eos % (Auto) 2 (0-10) % Baso % (Auto) 1 (0-2.5) % Neut # (Auto) 8.9 H (1.8-7.7) Thou/mm3 Lymph # (Auto) 0.6 L (1.0-4.8) Thou/mm3 [place] # (Auto) 0.9 H (0.0-0.8) Thou/mm3 Eos # (Auto) 0.2 (0.0-0.5) Thou/mm3 Baso # (Auto) 0.1 (0.0-0.2) Thou/mm3 Immature Gran # (Auto) 0.06 H (0.00-0.00) Thou/mm3 Absolute Nucleated RBC 0.00 (0.00-0.00) Thou/mm3 Immature Gran % 1 H (0-0) % Nucleated RBC % 0 (0) /100 WBC Sodium 137 (136-145) mMol/L Potassium 4.1 (3.4-5.1) mMol/L Chloride 105 (98-107) mMol/L Carbon Dioxide 23.8 (20.0-31.0) mMol/L Anion Gap 8 (7-16) BUN 14 (9-23) mg/dL Creatinine 1.2 (0.6-1.3) mg/dL Estim Creat Clear Calc 73.3 (>60) mL/min eGFR > 60 (60 - ) See Note BUN/Creatinine Ratio 12 (12-20) Ratio Glucose 89 (74-106) mg/dL Calculated Osmolality 273 L (275-295) Lactic Acid 1.9 (0.4-2.0) mMol/L Calcium 8.9 (8.3-10.6) mg/dL Corrected Calcium 9.3 (8.5-10.1) mg/dL Total Bilirubin 1.1 (0.3-1.2) mg/dL AST 23 (0-34) U/L ALT 14 (10-49) U/L Alkaline Phosphatase 90 (46-116) U/L B-Natriuretic Peptide 365 H (0-100) pg/mL Total Protein 7.3 (5.7-8.2) gm/dL Albumin 3.5 (3.4-4.8) gm/dL Globulin 3.8 H (2.3-3.5) gm/dL Albumin/Globulin Ratio 0.9 L (1.2-2.2) Procalcitonin 0.08 (0.0-0.49) ng/ml Ur Collection Type Clean Catch Urine Color Lt-Yellow (Lt Yel-Yel) Urine Clarity Clear (Clear/Hazy) Urine pH 6.5 (5.0-7.0) Ur Specific [place] 1.014 (1.001-1.035) Urine Protein Trace (Neg - Trace) Urine Glucose (UA) Negative (Negative) Urine Ketones Negative (Negative) Urine Blood Negative (Negative) Urine Nitrite Negative (Negative) Urine Bilirubin Negative (Negative) Urine Urobilinogen (Auto) Negative (0.0-1.0) mg/dL Ur Leukocyte Esterase Negative (Negative) Urine RBC 1 (0-3) /hpf Urine WBC 1 (0-5) /hpf Ur Squamous Epith Cells < 1 (0-5) /hpf Urine Bacteria None (None) Ur Culture Indicated? Not Indicated Discharge Plan Problem List Clinical Impression: Cellulitis of scrotum
[2024-06-20] MEDS: PIPER/TAZO 3.375 GM PREMIX 3.375 GM/50 ML BAG IV (10:54)
[2024-06-20] MEDS: VANCOMYCIN/NS 1 GM IVPB 200 ML IV (10:55)
--- NOTE | 2024-06-20 11:19 | PC.CM ---
Addendum entered by Dariela Lawrence RN 06/20/24 14:28: 1355 [facility] called and they declined patient stating he did not need to transfer. Patient will be admitted to our hospital. I called [facility] and I gave them the udpate. Addendum entered by Dariela Lawrence RN 06/20/24 12:52: [facility] called and wanted to speak to Dr. Montanez. I put call through to the doctor. Addendum entered by Dariela Lawrence RN 06/20/24 12:11: 1140 I called [facility] and initiated a transfer. I faxed over informaition and pushed over images. I transferred call to Dr. Hebert. Addendum entered by Dariela Lawrence RN 06/20/24 11:51: [facility] at capacity. Patient declined. Addendum entered by Dariela Lawrence RN 06/20/24 11:34: 1050 I called [facility] transfer center and I spoke to Juany. I initiated transfer and I faxed over information. Addendum entered by Dariela Lawrence RN 06/20/24 11:33: I called [facility] and they are at capacity so they declined patient. Original Note: 1023 Patient needs transfer for urology services. Patient has Bilateral epididymitis with epididymal cysts Severe bilateral scrotal wall edema.
--- NOTE | 2024-06-20 12:20 | EVENTNT_ITS ---
Documentation for date of: 06/20/24 Event Note Event Note: The patient is a 69-year-old male with a previous medical history of chronic venous hypertension with bilateral lower extremity ulcers, pulmonary heart disease status post pacemaker placement 2019, hypertension, CHF, history of CVA, BPH, obesity who was admitted to the [facility] on 06/07/24 - 06/11/2024 due to sepsis secondary to GBS bacteremia, blood cultures grew beta- hemolytic Streptococcus from both sets, workup for infectious endocarditis was negative, he also was found to have scrotal swelling, imaging was negative for abscess. His condition has improved and he was discharged on oral antibiotics. On 06/20/2024 he presented to the emergency room again due to increased scrotal swelling and pain while continuing to take oral doxycycline with 2 days left. In the ED he was hemodynamically stable, afebrile, mild leukocytosis Pro-Robert was 0.08, UA was negative for signs of UTI, testicular ultrasound was positive for bilateral epididymitis with epididymal cyst, severe bilateral scrotal wall edema. On examination his scrotum is swollen, edematous in the scrotal and perineal area, is firm to the touch, cremaster reflex is absent. Dr. Owen, general surgeon, reported that patient does not require surgery at the moment. We spoke to the ED doctor, our concern is that patient require urology consult and/or possible transfer due to severe swelling, pain, forming cellulitis and the patient failing course of antibiotics. We asked the ED doctor to consult urology for the recommendations. Plan of care discussed with attending Dr. Barnes and PGY-[address] Quiros. Tamiko Rainey MD, PGY 1.
--- NOTE | 2024-06-20 12:21 | PC.CC ---
Patient is a 69 year-old male who presents to the hospital for Severe case of cellulitis, BLE/Testicle. Juani VELIZ made [id number] contact with patient. ASW introduced self, role, and reason for visit. Patient appeared alert and oriented to self, location, and situation. Patient was pleasant and engaged in initial assessment. Patient reports he lives at home with his , Freda Swift and son, Jaylen Swift . Patient's medical decision maker in the event he is unable to make his own medical decisions is . At home patient uses a walker and wheelchair for ambulation, and requires assistance with his ADLs. Patient uses a shower chair when bathing. Patient uses oxygen as needed at home. Patient receives primary care with Suad Jones and uses [facility] for prescription medications. Upon discharge patient plans to return home and is not interested in SNF placement. career placement services counselor to follow up with any discharge needs.
[2024-06-20] MEDS: NYSTATIN PWD 15 GM BTL TOP (13:16)
--- NOTE | 2024-06-20 13:21 | ESHP_ITS ---
Documentation for date of: 06/20/24 HPI History of Present Illness Chief complaint: Scrotal cellulitis, epididymitis History of present illness: 69-year-old male with past medical history of chronic venous hypertension, bilateral lower extremity ulcers, valvular heart disease status post pacemaker placement in 2018, hypertension, CHF, history of CVA, BPH, obesity presented to the ED on 06/20/24 for worsening scortal pain, swelling and redness. Patient was recently discharged on 06/11 after he was admitted for sepsis secondary to cellulitis with positive blood cultures. Patient had a BETTY completed secondary to blood cultures being positive for beta-hemolytic Streptococcus, which ended up being negative. Patient was discharged with oral antibiotics for the cellulitis; however, he presents today with worsening of scrotal pain along with erythema and edema. Patient states that he has been taking the oral antibiotics and he has 2 days left on his regimen. Patient continues to urinate without any burning sensation but states that the swelling has worsened. Past medical history: As above Surgical history: Pacemaker placement 2018 Meds: [place] 10, clonidine 0.2, Metoprol tartrate 50, Aldactone 25, nitro as needed, Lexapro 20, amlodipine 5, baby aspirin Allergies: Latex gives him rash Family history: Limited family history, unsure if there is family history of stroke, heart disease or diabetes Social history: Denies any oral or IV drug use, denies ever being a heavy drinker, no smoking history In the ED, patient presented hypertensive with blood pressure 155/79, regular heart rate, regular respiratory rate, afebrile satting 99 on room air. Pertinent lab findings included WBC of 10.7, hemoglobin 12.2, platelet count 282, lactic acid 1.9, BNP of 365. Urinalysis did not show any signs of urine infection. Testicular ultrasound showed no testicular torsion, bilateral epididymitis with epididymal cysts and severe bilateral scrotal wall edema. Chest x-ray showed suspicion for early heart failure. Per ED physician, Dr. BUCK, she spoke with urology services at [facility] who stated that the patient can safely be admitted for IV antibiotics for scrotal cellulitis/epididymitis. Patient will be admitted and treated with IV antibiotics, IV diuretics for history of valvular heart disease along with scrotal edema, cellulitis and epididymitis. Exam Vital Signs Temp Pulse Resp BP Pulse Ox O2 Del Method 98.7 F 60 16 150/77 H 98 Room Air 06/20/24 12:38 06/20/24 12:38 06/20/24 12:38 06/20/24 12:38 06/20/24 12:38 06/20/24 10:00 Narrative Exam Physical Exam: GENERAL: Awake, answering questions appropriately, appears stated age HEENT: NC/AT. Moist mucosa. PERRLA/EOMI. CARDIO: Heart RRR, no obvious murmurs, no JVD. PULM: No coughing or visible SOB. Lungs CTA B/L. GI: Abdomen soft, NT/ND, +BS. URO/CIRCULATION ANALYST: Marked scrotal edema with erythema noted, cremasteric reflex negative, cellulitis observed on bilateral thighs and perineal region. Payne catheter to be placed SKIN/MSK/EXT: Patient has bilateral nonpitting edema lower extremities. No clubbing, cyanosis noted. No amputations noted. NEURO: Oriented x3, moves extremities x 4, no focal neurologic deficits noted. Results: Labs 06/20/24 08:35 06/20/24 08:35 Labs: Short CBC 06/20/24 Range/Units 08:35 WBC 10.7 H (3.8-10.6) Thou/mm3 Hgb 12.2 L (13.5-16.0) g/dL Hct 37.8 L (41.0-53.0) % Plt Count 282 D (140-440) Thou/mm3 BMP 06/20/24 08:35 Sodium 137 Potassium 4.1 Chloride 105 Carbon Dioxide 23.8 BUN 14 Creatinine 1.2 Glucose 89 Calcium 8.9 Liver Function 06/20/24 Range/Units 08:35 Total Bilirubin 1.1 (0.3-1.2) mg/dL AST 23 (0-34) U/L ALT 14 (10-49) U/L Alkaline Phosphatase 90 (46-116) U/L Albumin 3.5 (3.4-4.8) gm/dL Urine 06/20/24 Range/Units 09:15 Urine Color Lt-Yellow (Lt Yel-Yel) Urine Clarity Clear (Clear/Hazy) Urine pH 6.5 (5.0-7.0) Ur Specific [place] 1.014 (1.001-1.035) Urine Protein Trace (Neg - Trace) Urine Glucose (UA) Negative (Negative) Quality Measures Quality Measures none Advance care planning discussed with:: patient Medications Home Medications and Allergies Home Medications ?Medication ?Instructions ?Recorded ?Confirmed ?Type nitroglycerin 0.4 mg sublingual 0.4 mg SL PRN PRN CHES T TIGHTNESS 12/20/16 06/20/24 History tablet (Nitrostat) #0 tabs amlodipine 5 mg tablet 5 mg PO QDAY 06/04/22 History aspirin 81 mg chewable tablet 81 mg PO QDAY 06/04/22 0 06/20/24 History escitalopram oxalate 20 mg tablet 20 mg PO QDAY 06/20/24 History tamsulosin 0.4 mg capsule (Flomax) 0.4 mg PO QDAY 05/2206/20/24 History spironolactone 25 mg tablet 25 mg PO BID 07/03/2305/24 History hydrocodone 10 mg-acetaminophen 1 tab PO BID PRN pain 06/07/24 06/20/24 History 325 mg tablet furosemide 40 mg tablet 40 mg PO BID 06/20/24 History Allergies Allergy/AdvReac Type Severity Reaction Status Date / Time latex Allergy Rash Verified 06/20/24 07:13 Visit Medications Acetaminophen (Acetaminophen 325 Mg Tablet) 650 mg PO Q6H PRN PRN Reason: Pain 1-3 and/or Fever >100.1 Stop: 07/20/24 13:14 Hydrocodone Bitart/Acetaminophen (Hydrocodone/Apap 10/325 Tab) 1 tab PO Q4HR PRN PRN Reason: PAIN SCALE 7-10 (Severe Stop: 06/25/24 13:14 Escitalopram Oxalate (Escitalopram Oxalate 10 Mg Tablet) 20 mg PO QDAY [facility] Stop: 07/21/24 08:59 Heparin Sodium (Porcine) (Heparin Sod Inj 5000 Unit/Ml Vial) 5,000 unit SC Q12HR ISHA Stop: 07/04/24 20:59 Cefepime HCl 2 gm/ Sodium (Chloride) 50 mls @ 100 mls/hr IV Q12HR [facility] Stop: 06/27/24 13:18 Ondansetron HCl (Ondansetron Inj 2 Mg/Ml Inj 2 Ml) 4 mg IV Q6H PRN; Protocol PRN Reason: NAUSEA OR VOMITING Stop: 07/20/24 13:14 Oxycodone/Acetaminophen (Oxycodone/Apap 5/325 Tablet) 1 tab PO Q6H PRN PRN Reason: PAIN SCALE 4-6 (Moderate Stop: 06/25/24 13:14 Pharmacy Consult (Vancomycin Pharmacy To Dose 1 Each Each) 1 each IV QDAY [facility] Stop: 07/21/24 08:59 Sennosides (Senna Tablet) 1 tab PO QDAY [facility]; Protocol Stop: 07/21/24 08:59 Spironolactone (Spironolactone 25 Mg Tablet) 25 mg PO BID [facility] Stop: 07/20/24 20:59 Tamsulosin HCl (Tamsulosin Hcl 0.4 Mg Capsule) 0.4 mg PO QDAY [facility] Stop: 07/21/24 08:59 Discontinued Medications Vancomycin/Sodium Chloride (Vancomycin/Ns 1 Gm Ivpb) 200 mls @ 120 mls/hr IV X1 ONE Stop: 06/20/24 11:37 Last Admin: 06/20/24 10:55 Dose: 120 mls/hr Piperacillin/Tazobactam/Dextrose (Zosyn) 3.375 gm in 50 mls @ 100 mls/hr IV X1 ONE Stop: 06/20/24 10:27 Last Infusion: 06/20/24 11:40 Dose: Infused Nystatin (Nystatin Pwd 15 Gm Btl) 0 gm TOP X1 ONE Stop: 06/20/24 11:19 Last Admin: 06/20/24 13:16 Dose: 15 gm Assessment & Plan Plan 69-year-old male with past medical history of chronic venous hypertension, bilateral lower extremity ulcers, valvular heart disease status post pacemaker placement in 2018, hypertension, CHF, history of CVA, BPH, obesity presented to the ED for worsening scortal pain, swelling and redness will be admitted and treated with IV antibiotics, IV diuretics for history of valvular heart disease along with scrotal edema, cellulitis and epididymitis. #Scrotal edema/cellulitis #Epididymitis Patient's presenting with worsening scrotal edema which was present on prior admission but has worsened Patient denies any new sexual activity, shaving area, trauma to the area Was discharged on 06/11 with 10 days of doxycycline 100 mg p.o. twice daily and has completed 8 days worth On examination, patient scrotum is severely swollen, erythematous and there is cellulitis noted bilateral thighs and perineal region Patient's cremasterics reflex is negative WBC 10.7, patient denies having any fevers and is currently afebrile, lactic acid of 1.9 Testicular ultrasound showed no testicular torsion, bilateral epididymitis with epididymal cysts and severe bilateral scrotal wall edema Per ED physician Dr. BUCK, urology was consulted at [facility] and they stated the patient can be safely admitted for IV antibiotic regimen Plan: Started patient on broad antibiotics with IV cefepime and IV vancomycin Follow-up on blood cultures Keep the scrotum elevated IV diuretics (Bumex 2 mg IV daily) to be used concurrently for heart failure along with scrotal edema Wound referral Multimodal pain management Will consider further imaging studies if the patient's cellulitis/edema worsens to rule out Mayra's gangrene #History of HTN #History of valvular disease, severe aortic stenosis #s/p pacemaker 2017 #Pulmonary arterial hypertension 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 twice daily, amlodipine 5 mg p.o. daily, aspirin 81 mg p.o. daily, metoprolol succinate 50 mg p.o. daily and spironolactone 25 mg p.o. twice daily Per ECHO report 05/2022: Normal LV size and function. Mild LVH. Estimated EF 55- 60%. Normal RV size and function. Estimated RVSP 73mmHg suggestive of moderate to severe pulmonary hypertension Severe calcific aortic stenosis with moderate aortic regurgitation. Mean aortic valve pressure gradient 54mmHg, vmax 4.7 m.s, FERNANDEZ 0.77 cmsqu. LA mildly dilated, RA moderately dilated Mitral annular calcification with trace mitral regurgitation. Mild to moderate Tricuspid regurgitation Chest x-ray showed suspicion for early heart failure Plan: Will start Bumex 2 mg IV daily Continue spironolactone 25m po BID Daily weight Strict I's and O's Payne catheter in #Chronic venous hypertension #Chronic lower extremity ulcers #Chronic varicose veins #Chronic venous stasis Follows vascular and wound care 2x a week MRSA infections in past CT LE w/contrast shows: inflammation surrounding the left external iliac or common femoral veins without definite abscess. Diffuse edema in the subcutaneous fatty tissue lower legs Markedly thickened Achilles tendon with possible fluid collections on the left Testicular U/S shows: No testicular torsion or testicular mass. Bilateral benign testicular cysts. Benign left epididymal cysts Plan: Outpatient MRI left ankle without contrast follow-up Leg wound cultures grew back gram-positive cocci, pending speciation # History of possible seizure? As noted from past admission possible febrile seizure, as patient's body temperature reached 105.9 ?F Patient is not on any antiseizure medications From last admission, bedside nurse stated there was no reports of seizure in the ED Plan: Seizure precautions Ativan 2 mg every 30 minutes for breakthrough seizures Will consider neurology consultation if seizures reported #History of BPH Pending med rec Plan: Payne to be placed Continue home Flomax #Primary hepatocellular disease #21 mm fat-containing umbilical hernia Inflammation in the left groin Hospital Management: Lines: PIV Diet: Cardiac Bowel: Senna GI prophylaxis: Not needed DVT prophylaxis: Heparin subq Dispo: IV abx for scrotal wall cellulitis, epididymis and IV diuretics for heart failure and scrotal edema Code: Full Patient seen and assessed with attending Dr. Barnes and senior resident Dr. Ishaan Baker, PGY-1 Attending Provider Attestation/Addendum I attest that I was physically present for the evaluation, physical examination, lab and imaging review of the patient with the residents. I discussed the case with the residents and agree with the findings and plans of care as documented above. Patient is a 69 years old male with past medical history of chronic venous hypertension, bilateral lower extremity ulcers, valvular heart disease status post pacemaker placement, hypertension, CHF, CVA, BPH and obesity who presented with complaint of worsening scrotal pain, swelling and redness. Patient was recently discharged after being managed for sepsis secondary to cellulitis of lower extremity on oral antibiotics. Patient stated that after being discharged, his pain and swelling continues to worsen, he had 2 more days to finish his antibiotic course, decided to visit the ED due to severe pain. In the ED, his blood pressure was 155/79, rest of the vitals within normal limits. He had WBC of 10.7, lactate 1.9, BNP 365. Testicular ultrasound was done which did not show any testicular torsion but showed bilateral epididymitis with epididymal cyst and severe bilateral scrotal edema. On exam, patient has severe scrotal edema along with erythema, warmth and tenderness. There is redness around bilateral groin and left thigh. General surgery was consulted by ED, recommended no surgical intervention at this time and continuation of antibiotics. Discussed with the GI physician regarding urology consult, she contacted urology from [facility] who recommended no surgical intervention and admission in the hospital for IV antibiotic treatment. We will admit the patient for management of scrotal cellulitis and epididymitis. We will start him on broad-spectrum antibiotics with IV cefepime and vancomycin, we will obtain cultures and wound care. We will also start him on aggressive diuresis with Bumex 2 mg daily. We will also continue spironolactone. We will obtain strict ins and out. Mine Barnes MD
[2024-06-20] MEDS: CEFEPIME INJ 2 GM in SODIUM CHLORIDE 0.9% (Popper) 50 ML IV ×2 (13:49→20:56)
[2024-06-20] MEDS: BUMETANIDE INJ 0.25 MG/ML VIAL 10 ML 2 MG IVP (14:02)
--- NOTE | 2024-06-20 14:39 | PC.NURSE ---
Unable to place almeida d/t foreskin swelling. Dr. Nolasco made aware. Pureqick applied to collect urine and prevent further irritation to surrounding skin.
[2024-06-20] MEDS: Milk Of Magnesia Susp 30 ML UDC PO (20:57)
[2024-06-20] MEDS: HEPARIN SOD INJ 5000 UNIT/ML VIAL SC (20:57)
[2024-06-20] MEDS: SPIRONOLACTONE 25 MG TABLET PO (20:57)
[2024-06-20] MEDS: VANCOMYCIN/D5W 1,250 MG IVPB 250 ML 120 MG IV (21:39)
[2024-06-21] VITALS (10 sets, daily range): BP systolic 118–157; BP diastolic 49–78; PULSE 60–81; RESP 17–23; TEMP 36.1–37.2; O2SAT 95–97; BMI 41.3
[2024-06-21 06:06] LABS: Basophils # (Auto) 0.1 Thou/mm3 (0.0-0.2); Basophils % (Auto) 1 % (0-2.5); Eosinophils # (Auto) 0.2 Thou/mm3 (0.0-0.5); Eosinophils % (Auto) 2 % (0-10); Hemoglobin 12.1 g/dL (13.5-16.0); Immature Granulocytes % (Auto) 1 % (0-0); Immature Granulocytes Auto 0.07 Thou/mm3 (0.00-0.00); Lymphocytes # (Auto) 0.8 Thou/mm3 (1.0-4.8); Lymphocytes % (Auto) 9 % (10-50); Mean Corpuscular HGB Conc 33.6 g/dl (31.0-37.0); Mean Corpuscular Hemoglobin 29.7 pg (25.0-35.0); Mean Corpuscular Volume 88 fL (80-100); Monocytes # (Auto) 1.2 Thou/mm3 (0.0-0.8); Monocytes % (Auto) 12 % (0-12); Neutrophils # (Auto) 7.2 Thou/mm3 (1.8-7.7); Neutrophils % (Auto) 76 % (37-80); Nucleated Red Blood Cell % 0 /100 WBC (0); Platelet Count 272 Thou/mm3 (140-440); RDW Standard Deviation 45.6 fL (35.1-43.9); Red Blood Count 4.08 Miln/mm3 (4.50-5.90); White Blood Count 9.5 Thou/mm3 (3.8-10.6)
[2024-06-21] MEDS: bisacodyL 10 MG SUPP PR ×2 (07:00→07:22)
[2024-06-21] MEDS: ACETAMINOPHEN 325 MG TABLET 650 MG PO (07:21)
--- NOTE | 2024-06-21 07:26 | PC.NURSE ---
PT STATING THAT HE DOES FEEL WELL STATES HE FEELS FEVERISH . STATES THAT HIS ARMS ARE WEAK BUT ABLE TO LIFT THEM UP AND MAINTAIN IT. VS TAKEN AND STABLE. NO SIGNS OF FEVER. FSBS 103. SPOKE WITH MD REGARDING PT. STATES HE WILL BE THE FIRST ONE HE SEES. TYLENOL GIVEN PER MD REQUEST.
[2024-06-21 07:51] LABS: Alanine Aminotransferase 14 U/L (10-49); Albumin, Serum 3.1 gm/dL (3.4-4.8); Albumin/Globulin Ratio 0.8 (1.2-2.2); Alkaline Phosphatase 81 U/L (46-116); Anion Gap 7 (7-16); Aspartate Amino Transferase 23 U/L (0-34); BUN/Creatinine Ratio 13 Ratio (12-20); Bilirubin,Total 1.3 mg/dL (0.3-1.2); Blood Urea Nitrogen 13 mg/dL (9-23); Calcium 9.5 mg/dL (8.3-10.6); Calcium (Corrected) 10.2 mg/dL (8.5-10.1); Carbon Dioxide 28.9 mMol/L (20.0-31.0); Chloride 101 mMol/L (98-107); Estimated Creatinine Clearance 86.7 mL/min (>60); Globulin 3.8 gm/dL (2.3-3.5); Glucose 100 mg/dL (74-106); Osmolality,Calculated 273 (275-295); Sodium 137 mMol/L (136-145); Total Protein 6.9 gm/dL (5.7-8.2); eGFR > 60 See Note
[2024-06-21] MEDS: SPIRONOLACTONE 25 MG TABLET PO ×2 (08:46→20:48)
[2024-06-21] MEDS: SENNA TABLET 1 TAB PO (08:47)
[2024-06-21] MEDS: ESCITALOPRAM OXALATE 10 MG TABLET 20 MG PO (08:47)
[2024-06-21] MEDS: TAMSULOSIN HCL 0.4 MG CAPSULE PO (08:47)
[2024-06-21] MEDS: HEPARIN SOD INJ 5000 UNIT/ML VIAL SC ×2 (08:51→20:48)
[2024-06-21] MEDS: BUMETANIDE INJ 0.25 MG/ML VIAL 10 ML 2 MG IVP (08:53)
[2024-06-21] MEDS: CEFEPIME INJ 2 GM in SODIUM CHLORIDE 0.9% (Popper) 50 ML IV ×2 (09:00→20:48)
[2024-06-21] MEDS: VANCOMYCIN/D5W 1,250 MG IVPB 250 ML 120 MG IV (09:49)
[2024-06-21 10:53] LABS: Sed Rate (ESR) 55 mm/hr (0-20)
--- NOTE | 2024-06-21 11:27 | PC.SS ---
Addendum entered by Bhumika Murrieta 06/21/24 15:40: Pt is requiring IV diuretics. Original Note: Follow up note: On IV antibiotic. Pt will return home with HH.
--- NOTE | 2024-06-21 13:31 | PD.RESPRO ---
Documentation for date of: 06/21/24 Subjective Subjective Interval history: 06/21/2024: No acute overnight events to report. Patient seen and examined in hospital bed reports improvement in presenting symptoms and denies any concerning symptoms such as chest pain/tightness, shortness of breath, abdominal pain, dizziness or new headaches. Patient's scrotal swelling has improved since admission but there is still persistent cellulitic changes noted around the scrotum and upper thighs bilaterally. ESR and CRP were ordered and they were mildly elevated; moreover, will continue to trend with morning labs. General surgery was consulted but they have denied input regarding suspicion for Mayra's gangrene. Patient's clinical picture alongside lab findings make Mayra's gangrene possible but low on the differential. Will continue to treat with IV antibiotics and IV diuretics. Exam Vital Signs Temp Pulse Resp BP Pulse Ox O2 Del Method 96.9 F 60 22 H 124/74 96 Room Air 06/21/24 12:00 06/21/24 12:00 06/21/24 12:00 06/21/24 12:00 06/21/24 12:00 06/21/24 12:00 Narrative Exam Physical Exam: GENERAL: Awake, answering questions appropriately, appears stated age HEENT: NC/AT. Moist mucosa. PERRLA/EOMI. CARDIO: Heart RRR, no obvious murmurs, no JVD. PULM: No coughing or visible SOB. Lungs CTA B/L. GI: Abdomen soft, NT/ND, +BS. URO/VC++ DEVELOPER: Marked scrotal edema with erythema noted, cremasteric reflex negative, cellulitis observed on bilateral thighs and perineal region. Payne catheter to be placed SKIN/MSK/EXT: Patient has bilateral nonpitting edema lower extremities. No clubbing, cyanosis noted. No amputations noted. NEURO: Oriented x3, moves extremities x 4, no focal neurologic deficits noted. Objective Labs 06/22/24 05:45 06/22/24 05:45 Labs: Laboratory Results - last 24 hr 06/21/24 06/21/24 05:42 07:12 WBC 9.5 RBC 4.08 L Hgb 12.1 L Hct 36.0 L MCV 88 MCH 29.7 MCHC 33.6 RDW Std Deviation 45.6 H Plt Count 272 Neut % (Auto) 76 Lymph % (Auto) 9 L [place] % (Auto) 12 Eos % (Auto) 2 Baso % (Auto) 1 Neut # (Auto) 7.2 Lymph # (Auto) 0.8 L [place] # (Auto) 1.2 H Eos # (Auto) 0.2 Baso # (Auto) 0.1 Immature Gran # (Auto) 0.07 H Absolute Nucleated RBC 0.00 Immature Gran % 1 H Nucleated RBC % 0 ESR 55 H Sodium 137 Potassium 4.0 Chloride 101 Carbon Dioxide 28.9 Anion Gap 7 BUN 13 Creatinine 1.0 Estim Creat Clear Calc 86.7 eGFR > 60 BUN/Creatinine Ratio 13 Glucose 100 Calculated Osmolality 273 L Calcium 9.5 Corrected Calcium 10.2 H Total Bilirubin 1.3 H AST 23 ALT 14 Alkaline Phosphatase 81 C-Reactive Prot, Quant 4.0 H Total Protein 6.9 Albumin 3.1 L Globulin 3.8 H Albumin/Globulin Ratio 0.8 L Quality Measures Quality Measures none Advance care planning discussed with:: patient Assessment & Plan Assessment Current Active Medications: Generic Name Dose Route Start Last Admin Trade Name Freq PRN Reason Stop Dose Admin Acetaminophen 650 mg 06/20/24 13:15 06/21/24 07:21 Acetaminophen 325 Mg Tablet PO 07/20/24 13:14 650 mg Q6H PRN Administration Pain 1-3 and/or Fever >100.1 Hydrocodone Bitart/Acetaminophen 1 tab 06/20/24 13:15 Hydrocodone/Apap 10/325 Tab PO 06/25/24 13:14 Q4HR PRN PAIN SCALE 7-10 (Severe Bumetanide 2 mg 06/20/24 13:45 06/21/24 08:53 Bumetanide Inj 0.25 Mg/Ml Vial 10 Ml IVP 07/20/24 13:29 2 mg DAILY ISHA Administration Escitalopram Oxalate 20 mg 06/21/24 09:00 06/21/24 08:47 Escitalopram Oxalate 10 Mg Tablet PO 07/21/24 08:59 20 mg QDAY ISHA Administration Heparin Sodium (Porcine) 5,000 unit 06/20/24 21:00 06/21/24 08:51 Heparin Sod Inj 5000 Unit/Ml Vial SC 07/04/24 20:59 5,000 unit Q12HR ISHA Administration Cefepime HCl 2 gm/ Sodium 50 mls @ 100 mls/hr 06/20/24 13:19 06/21/24 09:00 Chloride IV 06/27/24 13:18 100 mls/hr Q12HR ISHA Administration Vancomycin HCl/Dextrose 250 mls @ 120 mls/hr 06/20/24 22:00 06/21/24 09:49 Vancomycin/D5w 1,250 Mg Ivpb IV 06/27/24 21:59 120 mls/hr Q12H ISHA Administration Protocol Ondansetron HCl 4 mg 06/20/24 13:15 Ondansetron Inj 2 Mg/Ml Inj 2 Ml IV 07/20/24 13:14 Q6H PRN NAUSEA OR VOMITING Protocol Oxycodone/Acetaminophen 1 tab 06/20/24 13:15 Oxycodone/Apap 5/325 Tablet PO 06/25/24 13:14 Q6H PRN PAIN SCALE 4-6 (Moderate Pharmacy Consult 1 each 06/21/24 09:00 Vancomycin Pharmacy To Dose 1 Each Each IV 07/21/24 08:59 QDAY PRN CONSULT Sennosides 1 tab 06/21/24 09:00 06/21/24 08:47 Senna Tablet PO 07/21/24 08:59 1 tab QDAY ISHA Administration Protocol Spironolactone 25 mg 06/20/24 21:00 06/21/24 08:46 Spironolactone 25 Mg Tablet PO 07/20/24 20:59 25 mg BID ISHA Administration Tamsulosin HCl 0.4 mg 06/21/24 09:00 06/21/24 08:47 Tamsulosin Hcl 0.4 Mg Capsule PO 07/21/24 08:59 0.4 mg QDAY ISHA Administration Plan 69-year-old male with past medical history of chronic venous hypertension, bilateral lower extremity ulcers, valvular heart disease status post pacemaker placement in 2018, hypertension, CHF, history of CVA, BPH, obesity presented to the ED for worsening scortal pain, swelling and redness will be admitted and treated with IV antibiotics, IV diuretics for history of valvular heart disease along with scrotal edema, cellulitis and epididymitis. #Scrotal edema/cellulitis #Epididymitis Patient's presenting with worsening scrotal edema which was present on prior admission but has worsened Patient denies any new sexual activity, shaving area, trauma to the area Was discharged on 06/11 with 10 days of doxycycline 100 mg p.o. twice daily and has completed 8 days worth On examination, patient scrotum is severely swollen, erythematous and there is cellulitis noted bilateral thighs and perineal region Patient's cremasterics reflex is negative WBC 10.7, patient denies having any fevers and is currently afebrile, lactic acid of 1.9 Testicular ultrasound showed no testicular torsion, bilateral epididymitis with epididymal cysts and severe bilateral scrotal wall edema Per ED physician Dr. BUCK, urology was consulted at [facility] and they stated the patient can be safely admitted for IV antibiotic regimen Blood cultures no growth for 24 hours ESR 55 and CRP 4.0 Plan: ESR and CRP trending with AM labs Continue broad antibiotics with IV cefepime and IV vancomycin Keep the scrotum elevated IV diuretics (Bumex 2 mg IV daily) to be used concurrently for heart failure along with scrotal edema Wound referral Multimodal pain management Will consider further imaging studies if the patient's cellulitis/edema worsens to rule out Mayra's gangrene #History of HTN #History of valvular disease, severe aortic stenosis #s/p pacemaker 2017 #Pulmonary arterial hypertension 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 twice daily, amlodipine 5 mg p.o. daily, aspirin 81 mg p.o. daily, metoprolol succinate 50 mg p.o. daily and spironolactone 25 mg p.o. twice daily Per ECHO report 05/2022: Normal LV size and function. Mild LVH. Estimated EF 55-60%. Normal RV size and function. Estimated RVSP 73mmHg suggestive of moderate to severe pulmonary hypertension Severe calcific aortic stenosis with moderate aortic regurgitation. Mean aortic valve pressure gradient 54mmHg, vmax 4.7 m.s, FERNANDEZ 0.77 cmsqu. LA mildly dilated, RA moderately dilated Mitral annular calcification with trace mitral regurgitation. Mild to moderate Tricuspid regurgitation Chest x-ray showed suspicion for early heart failure Plan: Will start Bumex 2 mg IV daily Continue spironolactone 25m po BID Daily weight Strict I's and O's Payne catheter in #Chronic venous hypertension #Chronic lower extremity ulcers #Chronic varicose veins #Chronic venous stasis Follows vascular and wound care 2x a week MRSA infections in past CT LE w/contrast shows: inflammation surrounding the left external iliac or common femoral veins without definite abscess. Diffuse edema in the subcutaneous fatty tissue lower legs Markedly thickened Achilles tendon with possible fluid collections on the left Testicular U/S shows: No testicular torsion or testicular mass. Bilateral benign testicular cysts. Benign left epididymal cysts Plan: Outpatient MRI left ankle without contrast follow-up # History of possible seizure? As noted from past admission possible febrile seizure, as patient's body temperature reached 105.9 ?F Patient is not on any antiseizure medications From last admission, bedside nurse stated there was no reports of seizure in the ED Plan: Seizure precautions Ativan 2 mg every 30 minutes for breakthrough seizures Will consider neurology consultation if seizures reported #History of BPH Pending med rec Plan: Payne placed Continue home Flomax #Primary hepatocellular disease #21 mm fat-containing umbilical hernia Inflammation in the left groin Hospital Management: Lines: PIV Diet: Cardiac Bowel: Senna GI prophylaxis: Not needed DVT prophylaxis: Heparin subq Dispo: IV abx for scrotal wall cellulitis, epididymis and IV diuretics for heart failure and scrotal edema Code: Full Patient seen and assessed with attending Dr. Virk and senior resident Dr. Ishaan Baker, PGY-1 -- ATTESTATION: I saw and examined the patient this morning, and I agree with current management stated by the resident. Will continue to monitor patient during their stay. Disclaimer: Despite multiple revisions, due to the dictation software being used, the document bellow may not be free of grammatical errors including phonetic/typographic errors. However, this does not deter from our commitment to providing health care in the patient's best interest in mind. Dr. Villa Quiros, PGY-3 Attending Provider Attestation/Addendum Patient seen and examined at bedise with resident. Agree with assessment and plan as dictated above. Obtained inflammatory markers today, mildly elevated. Patient also afebrile, swelling improving, and no signs of necrotizing infxn at this time. Will continue to monitor closely and trend inflammatory markers. Otherwise continue with aggressive diuresis and abx. Mundo Virk MD
[2024-06-21] MEDS: ONDANSETRON INJ 2 MG/ML INJ 2 ML 4 MG IV (17:51)
[2024-06-21] MEDS: HYDROcodone/APAP 10/325 TAB PO (21:09)
[2024-06-21 22:28] LABS: Vancomycin,Trough 20.4 mcg/mL (5.0-10.0)
[2024-06-22] VITALS (7 sets, daily range): BP systolic 110–145; BP diastolic 63–71; PULSE 59–62; RESP 17–21; TEMP 36.1–36.7; O2SAT 95–96; BMI 34.2
[2024-06-22 06:27] LABS: Basophils # (Auto) 0.1 Thou/mm3 (0.0-0.2); Basophils % (Auto) 1 % (0-2.5); Eosinophils # (Auto) 0.2 Thou/mm3 (0.0-0.5); Eosinophils % (Auto) 2 % (0-10); Hematocrit 37.5 % (41.0-53.0); Hemoglobin 12.4 g/dL (13.5-16.0); Immature Granulocytes % (Auto) 1 % (0-0); Immature Granulocytes Auto 0.06 Thou/mm3 (0.00-0.00); Lymphocytes # (Auto) 0.7 Thou/mm3 (1.0-4.8); Lymphocytes % (Auto) 7 % (10-50); Mean Corpuscular HGB Conc 33.1 g/dl (31.0-37.0); Mean Corpuscular Hemoglobin 29.2 pg (25.0-35.0); Mean Corpuscular Volume 88 fL (80-100); Monocytes # (Auto) 1.3 Thou/mm3 (0.0-0.8); Monocytes % (Auto) 13 % (0-12); Neutrophils # (Auto) 7.4 Thou/mm3 (1.8-7.7); Neutrophils % (Auto) 77 % (37-80); Nucleated Red Blood Cell % 0 /100 WBC (0); Platelet Count 280 Thou/mm3 (140-440); RDW Standard Deviation 45.5 fL (35.1-43.9); Red Blood Count 4.24 Miln/mm3 (4.50-5.90); White Blood Count 9.7 Thou/mm3 (3.8-10.6)
[2024-06-22 06:42] LABS: Alanine Aminotransferase 11 U/L (10-49); Albumin, Serum 3.2 gm/dL (3.4-4.8); Albumin/Globulin Ratio 0.9 (1.2-2.2); Alkaline Phosphatase 82 U/L (46-116); Anion Gap 6 (7-16); Aspartate Amino Transferase 21 U/L (0-34); BUN/Creatinine Ratio 13 Ratio (12-20); Blood Urea Nitrogen 16 mg/dL (9-23); C-Reactive Protein 4.3 mg/dL (0.0-0.9); Calcium 8.9 mg/dL (8.3-10.6); Calcium (Corrected) 9.5 mg/dL (8.5-10.1); Carbon Dioxide 30.4 mMol/L (20.0-31.0); Chloride 102 mMol/L (98-107); Creatinine (Component) 1.2 mg/dL (0.6-1.3); Estimated Creatinine Clearance 65.4 mL/min (>60); Globulin 3.6 gm/dL (2.3-3.5); Glucose 106 mg/dL (74-106); Osmolality,Calculated 276 (275-295); Sodium 138 mMol/L (136-145); Total Protein 6.8 gm/dL (5.7-8.2); eGFR > 60 See Note
[2024-06-22 07:26] LABS: Sed Rate (ESR) 59 mm/hr (0-20)
[2024-06-22] MEDS: SPIRONOLACTONE 25 MG TABLET PO (08:40)
[2024-06-22] MEDS: TAMSULOSIN HCL 0.4 MG CAPSULE PO (08:41)
[2024-06-22] MEDS: SENNA TABLET 1 TAB PO (08:41)
[2024-06-22] MEDS: BUMETANIDE INJ 0.25 MG/ML VIAL 10 ML 2 MG IVP (08:41)
[2024-06-22] MEDS: ESCITALOPRAM OXALATE 10 MG TABLET 20 MG PO (08:41)
[2024-06-22] MEDS: HEPARIN SOD INJ 5000 UNIT/ML VIAL SC (08:42)
[2024-06-22] MEDS: CEFEPIME INJ 2 GM in SODIUM CHLORIDE 0.9% (Popper) 50 ML IV (08:42)
[2024-06-22] MEDS: VANCOMYCIN/NS 1 GM IVPB 200 ML IV (10:30)
--- NOTE | 2024-06-22 12:34 | PC.SS ---
Update: Blood cultures are pending. Patient receiving antibiotics.
--- NOTE | 2024-06-22 13:30 | PC.SS ---
Hospital Bed Patient?s diagnosis requires positioning of the head or upper body to be elevated more than 30 degrees. Also the diagnosis requires positioning in order to alleviate pain and if the patient requires frequent changes in the body positioning and/or has an immediate need for change in the body position. Pillows and wedges have been considered and ruled out.
--- NOTE | 2024-06-22 14:18 | ESDS_ITS ---
<Statement entered by Sal Stack MD - 06/30/24 09:24> I reviewed above note and agree with findings and plans. I have also personally examined the patient with medicine team and went over assessment and plan with medical team including international sales representative and resident physician. Planned Discharge Date 06/22/24 DS: Providers Provider Date of admission: 06/20/24 13:15 Primary care physician: Suad Jones MD Admitting Provider: Mine Barnes MD Attending Provider on Admission: Sal Stack MD Consults: 06/20/24 10:23 Referral - Senior Java Software Engineer Stat Service Needed for Transfer: Urology 06/20/24 13:22 Referral Wound Care Routine Comment: perineal cellulitis, Attending Provider on DC: Anmol Rene MD Discharging Provider: Anmol Rene MD DS: Diagnosis Problem List Completed Was Problem List Reviewed/Reconciled?: Yes Hospital Course Hospital Course Hospital course: Mr. Swift a 69-year-old male with past medical history of chronic venous hypertension, bilateral lower extremity ulcers, valvular heart disease status post pacemaker placement in 2018, hypertension, CHF, history of CVA, BPH, obesity presented to the ED on 06/20/24 for worsening scortal pain, swelling and redness. Patient was recently discharged on 06/11 after he was admitted for sepsis secondary to cellulitis with positive blood cultures. Patient had a BETTY completed secondary to blood cultures being positive for beta-hemolytic Streptococcus, which ended up being negative. Patient was discharged with oral antibiotics for the cellulitis; however, he presents today with worsening of scrotal pain along with erythema and edema. Patient will be admitted and treated with IV antibiotics, IV diuretics for history of valvular heart disease along with scrotal edema, cellulitis and epididymitis. Over time patient became stable and was safe to be discharged home on Keflex and Doxycycline for x2 weeks. Discharge summary was reviewed with my attending Dr. Stack. Anmol Rene, PGY-2 #Scrotal edema/cellulitis #Epididymitis #History of HTN #History of valvular disease, severe aortic stenosis #Chronic venous hypertension #Chronic lower extremity ulcers #Chronic varicose veins #Chronic venous stasis #History of BPH Status at Discharge Overall status at discharge: patient is progressing back to baseline Time Spent with Patient Time attestation: Total time spent providing and/or coordinating discharge services: Time spent: Greater than 30 minutes Exam Vital Signs Temp Pulse Resp BP Pulse Ox O2 Del Method O2 Flow Rate 97.2 F 60 18 110/69 96 Room Air 1 06/22/24 12:00 06/22/24 12:00 06/22/24 12:00 06/22/24 12:00 06/22/24 12:00 06/22/24 12:00 06/22/24 12:00 Narrative Exam Physical Exam: GENERAL: Awake, answering questions appropriately, appears stated age HEENT: NC/AT. Moist mucosa. PERRLA/EOMI. CARDIO: Heart RRR, no obvious murmurs, no JVD. PULM: No coughing or visible SOB. Lungs CTA B/L. GI: Abdomen soft, NT/ND, +BS. SKIN/MSK/EXT: Patient has bilateral nonpitting edema lower extremities. No clubbing, cyanosis noted. No amputations noted. NEURO: Oriented x3, moves extremities x 4, no focal neurologic deficits noted. Discharge Plan Plan Patient Disposition: HOME (Self Care) Prescriptions/Referrals Prescriptions/Med Rec: New doxycycline hyclate 100 mg capsule 100 mg PO BID Qty: 24 0RF cephalexin 500 mg capsule 500 mg PO QID Qty: 56 0RF Continued nitroglycerin [Nitrostat] 0.4 MG tablet, sublingual 0.4 mg SL PRN PRN (Reason: CHEST TIGHTNESS) Qty: 0 escitalopram oxalate 20 mg tablet 20 mg PO QDAY Patient Comments: TAKE 1 TABLET BY MOUTH EVERY DAY FOR 90 DAYS amlodipine 5 mg Tablet 5 mg PO QDAY tamsulosin [Flomax] 0.4 mg Capsule 0.4 mg PO QDAY aspirin 81 mg Tablet,Chewable 81 mg PO QDAY furosemide 40 mg tablet 40 mg PO BID Patient Comments: TAKE 1 TABLET BY MOUTH TWICE A DAY FOR 30 DAYS spironolactone 25 mg Tablet 25 mg PO BID hydrocodone-acetaminophen 10-325 mg tablet 1 tab PO BID PRN (Reason: pain) Patient Comments: TAKE 1 TABLET BY MOUTH TWICE A DAY NEEDED FOR PAIN metoprolol succinate 50 mg tablet extended release 24 hr 50 mg PO QDAY 30 Days Qty: 30 0RF Discontinued doxycycline monohydrate 100 mg capsule 100 mg PO BID 10 Days Qty: 20 0RF Referrals: Suad Jones MD [Primary Care Provider] - Patient/Caregiver Discharge Instructions Other Discharge Activity Instructions:: Start your new abx: Doxycycline and Cephalexin for x14 days as prescribed Stop your previous home prescribed antibiotics of doxycycline If symptoms worsen, go to your nearest hospital/ED Education Materials: Treating Epididymitis and Orchitis, What are Epididymitis and Orchitis?, Changing Dressing Dc, Wound Care Dc, Wound Dressing Change Steps, ED Epididymitis Print Language: Burmese Activity Restrictions/Additional Instructions: Wound Care- Right and left Buttock unstageable- Cleanse wound with normal saline, pat dry. Apply no sting barrier film to tavon-wound skin. Gently apply Thera-Honey saturated Alginate making sure entire wound deficit is filled. Cover with Allyven dressing BID and PRN soiled/dislodgment. Right and Left legs vascular ulcers- Cleanse with normal saline, pat dry, Gently Apply adaptic making sure entire wound deficit is covered. Lightly wrap with roll gauze, Daily and PRN soiled/dislodgment. MASD to the bilateral thighs, groin and scrotum- : cleanse with soap and water, pat dry, apply z-guard TID/PRN for soiling. Stand Alone Forms: Fina Award Info., Patient Portal Info Letter Discharge Order Discharge Orders: Discharge (Routine); Ordered 06/22/24 Ordered By: Anmol Rene Quality Discharge Quality Measures VTE prophylaxis
--- NOTE | 2024-06-22 15:36 | PC.SS ---
HOSEMAN conducted bedside contact with the patient. Patient requesting hospital bed. DME referral submitted on [facility]. Awaiting response.
--- NOTE | 2024-06-22 16:58 | PC.SS ---
PHOTO TECHNOLOGIST confirmed with patient alignment with [place] home health services. Patient to re-establish home health services upon discharge.
== END 2024-06-22 17:36 | disposition home or self-care (01) | DRG 727 ==
LOC: SERX 07:39 → SERHOLD 13:29 → S2NX 17:13
PROVIDERS: Nurse Practitioner Primary Care; Admitting Provider Student in an Organized Health Care Education/Training Program; Emergency Provider Emergency Medicine; PCP Family Medicine; Visit Provider Internal Medicine
DX: N49.2 Inflammatory disorders of scrotum (principal); J18.1 Lobar pneumonia, unspecified organism; Z68.41 Body mass index [BMI] 40.0-44.9, adult; L97.929 Non-pressure chronic ulcer of unspecified part of left lower leg with unspecified severity; L97.919 Non-pressure chronic ulcer of unspecified part of right lower leg with unspecified severity; N50.3 Cyst of epididymis; N40.0 Benign prostatic hyperplasia without lower urinary tract symptoms; E66.9 Obesity, unspecified; I50.9 Heart failure, unspecified; I11.0 Hypertensive heart disease with heart failure; I08.3 Combined rheumatic disorders of mitral, aortic and tricuspid valves; I27.21 Secondary pulmonary arterial hypertension; N44.2 Benign cyst of testis; I83.90 Asymptomatic varicose veins of unspecified lower extremity; I87.8 Other specified disorders of veins; K42.9 Umbilical hernia without obstruction or gangrene; Z86.73 Personal history of transient ischemic attack (TIA), and cerebral infarction without residual deficits; Z95.0 Presence of cardiac pacemaker; Z79.899 Other long term (current) drug therapy; Z79.82 Long term (current) use of aspirin; Z86.14 Personal history of Methicillin resistant Staphylococcus aureus infection
CPT/HCPCS: 36415; 71045; 76870; 80053; 80202; 81001; 83605; 83880; 84145; 85025; 85652; 86140; 87040; 87081; 87811; 94762; 96365; 96366; 96367; 96368; 96375; 99285; J0692; J1643; J2405; J2543; J3370; J3490; J7050; A9270

== ENCOUNTER → 2024-07-30 | Outpatient (CLI) | payer MEDICARE, SELFPAY ==
--- NOTE | 2024-07-30 | XR_ITS ---
Examination: Foot, right, 3 views Technique: AP, oblique, lateral views foot, 3 views Date and time of exam: July 30, 2024 1240 hours INDICATIONS: Right foot pain and swelling post injury 10 days ago. FINDINGS: No acute fracture No dislocation IMPRESSION: No acute fracture If pain persists, recommend follow-up coned views of the toes
== END | disposition home or self-care (01) ==
LOC: CDIM 11:40
PROVIDERS: PCP Family Medicine; Referring Provider Registered Nurse; Visit Provider Registered Nurse
DX: M79.674 Pain in right toe(s) (principal)
CPT/HCPCS: 73630

== ENCOUNTER 2024-09-10 09:46 | Day surgery (SDC) | payer MEDICARE, SELFPAY ==
[2024-09-09 10:52] VITALS: BMI 40.4
[2024-09-10] VITALS (14 sets, daily range): BP systolic 120–161; BP diastolic 74–96; PULSE 60–64; RESP 14–21; TEMP 36.4–36.9; O2SAT 94–98
--- NOTE | 2024-09-10 07:00 | EKG_ITS ---
[facility] Test Date: 2024-09-10 Pat Name: ROSLYN HENDERSON Department: Room: - Gender: Male Ui Programmer: AKBAR : 1955 Requested By: Layo Desai Order Number: [id number] Reading MD: Layo Desai Measurements Intervals Violet Rate: 69 P: NV: QRS: -69 QRSD: 183 T: 71 QT: 474 QTc: 509 Interpretive Statements ELECTRONIC VENTRICULAR PACEMAKER ABNORMAL RHYTHM ECG Compared to ECG 06/11/2024 08:20:14 No significant changes /store/S0/[id number]/[id number].pdf
[2024-09-10 09:50] LABS: Basophils # (Auto) 0.1 Thou/mm3 (0.0-0.2); Basophils % (Auto) 1 % (0-2.5); Eosinophils # (Auto) 0.3 Thou/mm3 (0.0-0.5); Eosinophils % (Auto) 3 % (0-10); Immature Granulocytes % (Auto) 1 % (0-0); Immature Granulocytes Auto 0.07 Thou/mm3 (0.00-0.00); Lymphocytes # (Auto) 0.6 Thou/mm3 (1.0-4.8); Lymphocytes % (Auto) 6 % (10-50); Mean Corpuscular HGB Conc 33.3 g/dl (31.0-37.0); Mean Corpuscular Hemoglobin 29.3 pg (25.0-35.0); Mean Corpuscular Volume 88 fL (80-100); Monocytes # (Auto) 0.8 Thou/mm3 (0.0-0.8); Monocytes % (Auto) 8 % (0-12); Neutrophils # (Auto) 9.2 Thou/mm3 (1.8-7.7); Neutrophils % (Auto) 83 % (37-80); Nucleated Red Blood Cell % 0 /100 WBC (0); Platelet Count 189 Thou/mm3 (140-440); RDW Standard Deviation 46.7 fL (35.1-43.9); Red Blood Count 4.44 Miln/mm3 (4.50-5.90); White Blood Count 11.1 Thou/mm3 (3.8-10.6)
[2024-09-10 10:02] LABS: Partial Thromboplastin Time 26.3 Seconds (22.0-36.0); Prothrombin Time 11.4 Seconds (9.0-12.2)
[2024-09-10 10:08] LABS: Anion Gap 7 (7-16); BUN/Creatinine Ratio 13 Ratio (12-20); Blood Urea Nitrogen 15 mg/dL (9-23); Calcium 9.4 mg/dL (8.3-10.6); Carbon Dioxide 25.9 mMol/L (20.0-31.0); Chloride 106 mMol/L (98-107); Creatinine (Component) 1.2 mg/dL (0.6-1.3); Estimated Creatinine Clearance 71.4 mL/min (>60); Glucose 101 mg/dL (74-106); Osmolality,Calculated 278 (275-295); Potassium 4.7 mMol/L (3.4-5.1); Sodium 139 mMol/L (136-145); eGFR > 60 See Note
--- NOTE | 2024-09-10 14:32 | PC.NURSE ---
1338 patient is awake, alert, breathing unlabored, s/p LHC and RHC by Dr. Desai, TR band present to right wrist, no bleeding or hematoma noted. Right venous access femoral sheath present, ok to remove now. Report received from Sophia GARCIA, patient to recover for 3 hours and 1hr post TR band removal. 1356 Venous sheath removed from right groin, manual pressure applied, no active bleeding or hematoma noted 1406, no bleeding or hematoma noted to right groin, manual pressure removed, site covered with 4x4 gauze and tegaderm. No bleeding or hematoma noted to right wrist with TR band in place. 1431 1ml air removed from TR band since hemostasis time to arterial access site 1331
--- NOTE | 2024-09-10 15:36 | PC.NURSE ---
1525 TR band removed from right wrist, no bleeding or hematoma noted, site covered with tegaderm and coban. Right groin remains clean, dry and intact with no hematoma.
[2024-09-10 15:37] LABS: O2 Saturation (Cath Lab) 89 % (91-98); Puncture Site Aortic
[2024-09-10 15:38] LABS: O2 Saturation (Cath Lab) 55 % (91-98); Puncture Site Pulmonary Artery
--- NOTE | 2024-09-10 16:51 | PC.NURSE ---
0841 patient is awake, alert, breathing unlabored, dressing to right wrist and right groin dry with no bleeding or hematoma. patient able to void 500ml via male external urinary device, meets discharge criteria, discharge instructions given to patient and son, patient discharged home in wheelchair with all belongings including walker.
--- NOTE | 2024-09-10 20:38 | PD.CARDCATH ---
Cardiac Cath Procedure Procedure Name Date of procedure: 09/10/24 PROCEDURE PERFORMED: 1. Left heart cardiac catheterization including right, left coronary angiograms and left ventriculogram 2. Successful complex PCI of the with excellent results and no residual stenosis or complications 2. Ultrasound-guided access of the right radial artery 3. Conscious sedation for 30 minutes GLUING MACHINE OPERATOR ELECTRONIC: Layo Desai MD Procedure Narrative HISTORY AND INDICATIONS: 69 year-old male with PMHx of severe , chronic venous hypertension, bilateral lower extremity ulcers, chronic varicose veins, chronic venous stasis, valvular disease, status post pacemaker (2018, Dr. Muse), hypertension, chronic lower extremity edema, CHF, history of CVA 1999, BPH, obesity, who initially came to the office referred for valvular disease. Patient had ischemic cardiac work up done and NST showed decreased uptake in the inferior and inferiorlateral segments at rest and improved with stress, but there was no evidence of stress induced ischemia. TID 1.11. Patient was brought in for an elective cardiac catheterization. All the risk benefits and alternatives of left heart cardiac attrition were explained in detail including the risk of bleeding, heart attack, stroke and in detail. Patient agreeable for the procedure and provided the consent. H&P updated. DESCRIPTION OF PROCEDURE: The patient was brought to the cardiac catheterization lab analysis the precautions were followed. Patient was given 1 Mg of Versed and 50 mcg of fentanyl for moderate conscious sedation. 2 mL of lidocaine was given in the right wrist. The right radial artery was accessed via the ultrasound guidance as well as micropuncture technique. A 6 Croatian glide sheath was introduced. We then used a 6 Croatian TIG 4 catheter to perform the left coronary angiogram as well as a left ventriculogram which showed the following findings. A JR 3.5 SH sidehole catheter was used for right coronary angiogram as well as performing the PCI of the ostial RCA. 1. Right dominant circulation 2. Left main artery is a large artery without any Significant disease 2. LAD arises artery with mild to moderate stenosis in the proximal LAD of 40 to 50%, patent stents in the mid as well as the distal LAD. Small diagonals without any significant disease. 3. LCx is a large size artery with mild disease in the proximal and mid segments. OM1 is a medium artery with moderate 40 to 50% stenosis as well as OM 2 is a medium sized artery with moderate 60 to 70% stenosis in the proximal segment. 4. RCA is large size artery with severe 95% stenosis of the ostial RCA and mild to moderate diffuse disease in the mid as well as the distal RCA. 5. LVEF is normal at 60 to 65% with normal LVEDP. There was no significant transvalvular aortic gradient RHC findings: Mean right atrial pressure was 19 mmHg. Right atrial pressure was 20/24 mmHg. Pulmonary artery pressure was 58/32 mmHg with a mean of 44 mmHg. Mean pulmonary capillary wedge pressure was 31 mmHg. TPG was 13 mmHg Pulmonary artery PA saturation was 54.7%.? Arterial saturation was 89.6% on room air. Cardiac output was 4.17 L/min and cardiac index was normal at 1.80 L/min/m? INTERVENTION: A 6 Croatian JL 3.5 SH guide was used to engage the right coronary artery. Patient was given weight-based heparin and ACT was greater than 250 although the procedure. Run-through guidewire was used to cross the lesion in the ostial RCA without any complications. We then use a second run-through wire as sentinel wire to adjust the position of the balloon or the stent of the ostial RCA lesion. A 3.0 x 12 mm semicompliant balloon was used for predilatation and was predilated multiple times at 6, 8 and 10 and 12 kim respectively. We then used 3.5 x 16 mm Megatron Synergy CONSTANCE stent and carefully positioned in the ostium and multiple images were taken to make sure that ostium was covered with couple of cells extending into the aorta. The Megatron stent was deployed at 12 and 14 kim for a total of 45 seconds and then post dilation was performed with partial length of the balloon outside the stent into the aorta at almost 20 kim to flare up distal edge of the stent into the aorta. Excellent results achieved with ZENAIDA-3 flow and no other complications. Final angiographic pictures were taken and all interventional equipment was removed. A radial band was used to achieve the hemostasis of the right radial artery access and manual hemostasis for the right antecubital vein. Patient will be monitored in the cardiac corporate treasurer for the next 2 to 3 hours and will be sent to the telemetry floor. Patient recommended to follow-up with me in the office within 7 days after discharge. ACC data: Preprocedure:-Ostial RCA with 90 to 95% stenosis with ZENAIDA-3 flow Post procedure: Ostial RCA with 0% residual stenosis with ZENAIDA-3 flow Patient was already on aspirin and Brilinta which were continued. A radial band was used to achieve the hemostasis of the right radial artery access. Patient will be monitored in the cardiac Launch Manager for the next 2 to 3 hours and will be discharged home later if hemodynamically stable. Complications: None Specimens: None Blood loss: Estimated 10 ML Summary/findings: 1. LHC showed patent stents in the mid as well as distal LAD without any significant stenosis replacing #2024. Rest of the LHC showed severe residual 90 to 95% stenosis of the ostial RCA, moderate disease proximal LAD, rest of the RCA, OM1 and OM 2 as described above. 2. LVEF was normal at 55 to 60% with normal LVEDP. No significant transvalvular aortic gradient noted. 3. Successful complex PCI performed of the ostial RCA with 3.5 x 16 mm Synergy CONSTANCE stent [depict] with excellent results and no complications. Recommendations: 1. Recommended dual antiplatelet therapy with aspirin 81 mg once daily lifetime and Brilinta 90 mg twice daily for at least 1 year. High intensity statin and beta-blockers to be continued 2. Recommend aggressive risk factor modification 3. Patient recommended not to lift any weight more than 5 to 10 pounds for the next 7 days and follow-up with me in the office in 7 days. Layo Desai MD Interventional Cardiology.
== END 2024-09-10 16:36 | disposition home or self-care (01) ==
PROVIDERS: PCP Registered Nurse; Referring Provider Internal Medicine Cardiovascular Disease; Visit Provider Internal Medicine Cardiovascular Disease
PROC: (CPT 93458; principal; 2024-09-10 11:00)
DX: I25.10 Atherosclerotic heart disease of native coronary artery without angina pectoris (principal); I35.0 Nonrheumatic aortic (valve) stenosis; E66.01 Morbid (severe) obesity due to excess calories; I11.0 Hypertensive heart disease with heart failure; I50.9 Heart failure, unspecified; N40.0 Benign prostatic hyperplasia without lower urinary tract symptoms; Z01.810 Encounter for preprocedural cardiovascular examination; Z86.73 Personal history of transient ischemic attack (TIA), and cerebral infarction without residual deficits; Z95.0 Presence of cardiac pacemaker
CPT/HCPCS: 93458; 36415; 80048; 82810; 85025; 85610; 85730; 93005; 99152; 99153; A4649; C1769; C1887; C1894; J0461; J1643; J2250; J2310; J2371; J3010; J3490; J2305

== ENCOUNTER → 2024-11-03 | Outpatient (CLI) | payer MEDICARE, SELFPAY ==
[2024-11-03 09:05] LABS: Anion Gap 7 (7-16); BUN/Creatinine Ratio 20 Ratio (12-20); Blood Urea Nitrogen 26 mg/dL (9-23); Calcium 9.5 mg/dL (8.3-10.6); Carbon Dioxide 27.5 mMol/L (20.0-31.0); Chloride 105 mMol/L (98-107); Creatinine (Component) 1.3 mg/dL (0.6-1.3); Glucose 101 mg/dL (74-106); Osmolality,Calculated 282 (275-295); Potassium 4.4 mMol/L (3.4-5.1); Sodium 139 mMol/L (136-145); eGFR 59 See Note
== END | disposition home or self-care (01) ==
LOC: COPL 07:28
PROVIDERS: PCP Family Medicine; Referring Provider Internal Medicine Cardiovascular Disease; Visit Provider Internal Medicine Cardiovascular Disease
DX: I35.0 Nonrheumatic aortic (valve) stenosis (principal)
CPT/HCPCS: 36415; 80048

== ENCOUNTER → 2025-02-09 | Outpatient (CLI) | payer MEDICARE, SELFPAY ==
[2025-02-09 11:40] LABS: Basophils # (Auto) 0.1 Thou/mm3 (0.0-0.2); Basophils % (Auto) 1 % (0-2.5); Eosinophils # (Auto) 0.3 Thou/mm3 (0.0-0.5); Eosinophils % (Auto) 3 % (0-10); Hematocrit 43.1 % (41.0-53.0); Hemoglobin 14.1 g/dL (13.5-16.0); Immature Granulocytes Auto 0.10 Thou/mm3 (0.00-0.00); Lymphocytes # (Auto) 0.7 Thou/mm3 (1.0-4.8); Lymphocytes % (Auto) 7 % (10-50); Mean Corpuscular HGB Conc 32.7 g/dl (31.0-37.0); Mean Corpuscular Hemoglobin 28.0 pg (25.0-35.0); Mean Corpuscular Volume 86 fL (80-100); Monocytes # (Auto) 0.8 Thou/mm3 (0.0-0.8); Monocytes % (Auto) 7 % (0-12); Neutrophils # (Auto) 8.8 Thou/mm3 (1.8-7.7); Neutrophils % (Auto) 82 % (37-80); Nucleated Red Blood Cell # 0.00 Thou/mm3 (0.00-0.00); Nucleated Red Blood Cell % 0 /100 WBC (0); Platelet Count 190 Thou/mm3 (140-440); RDW Standard Deviation 45.7 fL (35.1-43.9); Red Blood Count 5.04 Miln/mm3 (4.50-5.90); White Blood Count 10.8 Thou/mm3 (3.8-10.6)
[2025-02-09 11:51] LABS: Anion Gap 9 (7-16); BUN/Creatinine Ratio 24 Ratio (12-20); Blood Urea Nitrogen 31 mg/dL (9-23); Calcium 8.8 mg/dL (8.3-10.6); Carbon Dioxide 27.6 mMol/L (20.0-31.0); Chloride 104 mMol/L (98-107); Creatinine (Component) 1.3 mg/dL (0.6-1.3); Glucose 108 mg/dL (74-106); Osmolality,Calculated 288 (275-295); Potassium 4.4 mMol/L (3.4-5.1); Sodium 141 mMol/L (136-145); eGFR 59 See Note
[2025-02-09 16:45] LABS: B-Type Natriuretic Peptide 218 pg/mL (0-100)
[2025-02-09 16:46] LABS: INR 1.0 (0.9-1.3); Partial Thromboplastin Time 26.8 Seconds (22.0-36.0); Prothrombin Time 10.4 Seconds (9.0-12.2)
== END | disposition home or self-care (01) ==
LOC: COPL 10:32
PROVIDERS: PCP Family Medicine; Referring Provider Internal Medicine Cardiovascular Disease; Visit Provider Internal Medicine Cardiovascular Disease
DX: I35.0 Nonrheumatic aortic (valve) stenosis (principal); I50.32 Chronic diastolic (congestive) heart failure; L97.909 Non-pressure chronic ulcer of unspecified part of unspecified lower leg with unspecified severity
CPT/HCPCS: 36415; 80048; 83880; 85025; 85610; 85730